=== PATIENT | male | born 1970 | race Caucasian/White ===

== ENCOUNTER 2021-09-01 10:47 | Emergency (ER) | payer OTHER, SELFPAY ==
[2021-09-01 11:04] VITALS: BP 94/58; PULSE 64; RESP 18; TEMP 36.9; O2SAT 99; BMI 22.5
[2021-09-01 11:23] VITALS: BP 97/63; RESP 20; O2SAT 99
--- NOTE | 2021-09-01 12:07 | ED_ITS ---
HPI - Nausea/Vomiting/Diarrhea General: Chief complaint: Nausea/Vomiting/Diarrhea Stated complaint: Fever, Claminess, Dehydration Time Seen by Provider: 09/01/21 11:31 Source: patient Mode of arrival: ambulatory Limitations: no limitations History of Present Illness: Patient is a 51-year-old female who presents to ED today with a complaint of nausea, vomiting, diarrhea, fevers, and body aches over the past 48 hours. Patient was seen in the [facility] clinic yesterday and told he had a stomach bug . Patient reports he has had approximately 10 episodes of watery diarrhea over the past 48 hours. He states he will vomit with any attempts of eating. He has not noticed any melanotic stools or hematochezia. No hematemesis. Patient states fevers have been as high as 102 and accompanied with diffuse body aches. He does not complain of abdominal pain. Denies urinary symptoms. He does not complain of a headache, neck pain, back pain. No rash. MD elicited complaint: nausea, vomiting, diarrhea and other (fevers, body aches) Onset (ago): day(s) Description of diarrhea: watery Associated nausea: Yes Associated abdominal pain: No Location of pain: Other (reports diffuse body aches) Exacerbating factors: eating Relieving factors: none Associated symtoms: Reports nausea; Denies change in vision, chest pain, dizziness, dysuria, fatigue, headache(s), malaise, palpitations or syncope Review of Systems Const: Reports: fever(s) and body aches; Denies: chills, change in weight, fatigue or malaise Eyes: Denies: change in vision or blurry vision ENMT: Denies: throat pain, odynophagia, nasal discharge or nasal congestion Card: Denies: chest pain, palpitations, irregular heart rhythm, lightheadedness, syncope or dyspnea on exertion Resp: Denies: dyspnea, productive cough, wheezing, pain on inspiration, hemoptysis or chest congestion GI: Reports: nausea, vomiting and diarrhea; Denies: abdominal pain, hematemesis, hematochezia or melena : Denies: flank pain, difficulty urinating, dysuria or hematuria Musc: Denies: neck pain, back pain, extremity pain or joint pain Skin/Breast: Denies: rash Neuro: Denies: headache(s), numbness in extremities, weakness in extremities, sensory changes, difficulty walking or dizziness Physical Exam Const: COMMON NORMALS: no acute distress, patient oriented x3, no limitations, alert and well nourished GENERAL APPEARANCE: cooperative and ill appearing ORIENTATION/CONSCIOUSNESS: Yes awake, Yes oriented to person, Yes oriented to place and Yes oriented to time HENMT: COMMON NORMALS: normocephalic and atraumatic HEAD & SCALP: normocephalic and atraumatic Eye: SCLERA: sclerae normal Neck/C-Spine: COMMON NORMALS: full ROM, no lymphadenopathy and no meningeal signs Resp: COMMON NORMALS: normal respiratory effort and clear to auscultation bilaterally AUSCULTATION: clear to auscultation bilaterally Cardio: COMMON NORMALS: regular rate and regular rhythm RATE: regular rate RHYTHM: regular rhythm GI: COMMON NORMALS: Normal to inspection, nondistended, normoactive bowel so unds present, Soft to palpation, non-tender, No hepatosplenomegaly present and no masses PALPATION: Yes Soft to palpation and Yes No hepatosplenomegaly present : COMMON NORMALS: Yes no CVA tenderness BLADDER/KIDNEY EXAM: Yes no CVA tenderness Back/Pelvis: COMMON NORMALS: no CVA tenderness, thoracic and lumbar spine normal to inspection, no thoracic nor lumbar tenderness and thoraco-lumbar ROM normal Extremity: COMMON NORMALS: normal to inspection GENERAL: Yes normal exam except as noted Neuro: JOHN COMA SCALE: document GCS findings John coma scale eye opening: Spontaneous [place] coma scale verbal response: Orientated John coma scale motor response: Obey commands John coma scale total score: 15 COMMON NORMALS: patient oriented x3, moves all extremities, no focal motor deficits and no sensory deficits noted SENSORIUM/ORIENTATION: Yes alert, Yes oriented to person, Yes oriented to place and Yes oriented to time MENINGEAL SIGNS: Yes no meningeal signs Skin: COMMON NORMALS: no rashes or lesions noted GENERAL SKIN EXAM: no rashes or lesions noted Course Vital Signs: Vital signs: Vital Signs Temperature 98.4 F 09/01/21 11:04 Pulse Rate 86 09/01/21 16:49 Respiratory Rate 16 09/01/21 16:49 Blood Pressure 104/66 09/01/21 16:49 Pulse Oximetry 97 09/01/21 16:49 MDM - Nausea/Vomiting/Diarrhea Medical Decision Making Patient was an extremely hard stick and 8 separate nurses as well as phlebotomy tried to stick patient. Nurses also attempted with ultrasound guidance without success. We were able to get basic labs but we cannot get an IV established for fluids. We also cannot get the tick panel and hepatitis panel that was ordered. Patient does have mild elevations to his LFTs-unknown the chronicity of these. Normal bilirubin. Normal lipase. Patient states he does believe he had a history of hepatitis C that was treated 5 years ago. Patient is leukopenic with a white count of 1.7. He has a low sodium at 127. Due to these findings I was suspicious for tick illness and I did ask patient who told me he had a tick bite but it was 48 hours ago and he already had symptoms at that time so that would make this less likely. Patient is a diabetic. Blood sugars today 214. He has a normal bicarb and normal gap. I do not have concerns that symptoms are secondary to DKA. His US gallbladder is normal. He has no abdominal tenderness therefore CT imaging was not obtained. Patient states he is tired of being stuck and would like to go home at this time. Will write him a prescription of Zofran and recommend extremely close follow-[facility] for [facility]uation and lab recheck. Patient agrees to this plan. Lab Data : 09/01/21 14:00 09/01/21 14:00 Radiology Impressions Gallbladder Ultrasound 09/01/21 14:38 IMPRESSION: No acute findings. Laboratory Results WBC 1.7 10^3/uL (4.0-10.0) L 09/01/21 14:00 RBC 5.30 10^6/uL (4.1-5.3) 09/01/21 14:00 Hgb 15.4 g/dL (11.7-16.6) 09/01/21 14:00 Hct 47.1 % (42.0-52.0) 09/01/21 14:00 MCV 88.9 fl (80-94) 09/01/21 14:00 MCH 29.1 pg (28.0-34.0) 09/01/21 14:00 MCHC 32.7 g/dL (30.0-36.0) 09/01/21 14:00 RDW 12.5 % (12.1-15.1) 09/01/21 14:00 Plt Count 121 10^3/cmm (130-400) L 09/01/21 14:00 MPV 10.2 fL (7.4-10.4) 09/01/21 14:00 Neut % (Auto) 80.2 % 09/01/21 14:00 Lymph % (Auto) 12.2 % 09/01/21 14:00 [place] % (Auto) 5.8 % 09/01/21 14:00 Eos % (Auto) 0.0 % 09/01/21 14:00 Baso % (Auto) 1.2 % 09/01/21 14:00 Neut # (Auto) 1.38 10^3/uL (1.8-7.7) L 09/01/21 14:00 Lymph # (Auto) 0.2 10^3/uL (0.8-4.8) L 09/01/21 14:00 [place] # (Auto) 0.1 10^3/uL (0.2-0.9) L 09/01/21 14:00 Eos # (Auto) 0.0 10^3/uL (0.0-0.8) 09/01/21 14:00 Baso # (Auto) 0.0 10^3/uL (0.0-0.1) 09/01/21 14:00 Nucleated RBC % (auto) 0 % 09/01/21 14:00 Nucleated RBCs # 0.0 /100WBC 09/01/21 14:00 Sodium 127 mmol/L (136-145) L 09/01/21 14:00 Potassium 4.0 mmol/L (3.5-5.1) 09/01/21 14:00 Chloride 91 mmol/L (98-107) L 09/01/21 14:00 Carbon Dioxide 22 mmol/L (22-29) 09/01/21 14:00 Anion Gap 18.0 (5-19) 09/01/21 14:00 BUN 17 mg/dL (6-20) 09/01/21 14:00 Creatinine 1.1 mg/dL (0.7-1.2) 09/01/21 14:00 GFR Calculation 71.1 mL/min (90-130) L 09/01/21 14:00 Glucose 214 mg/dL (65-115) H 09/01/21 14:00 Calculated Osmolality 272 mOsm/kg (285-295) L 09/01/21 14:00 Calcium 8.0 mg/dL (8.5-10.5) L 09/01/21 14:00 Total Bilirubin 0.4 mg/dL (0.15-1.2) 09/01/21 14:00 AST 83 U/L (0-40) H 09/01/21 14:00 ALT 72 U/L (0-41) H 09/01/21 14:00 Alkaline Phosphatase 189 IU/L (40-130) H 09/01/21 14:00 Total Protein 6.6 g/dL (6.6-8.7) 09/01/21 14:00 Albumin 3.6 g/dL (3.5-5.2) 09/01/21 14:00 Globulin 3.0 g/dL (1.3-4.6) 09/01/21 14:00 Lipase 5 U/L (13-60) L 09/01/21 14:00 Urine Color Yellow (Yellow) 09/01/21 14:30 Urine Appearance Clear (CLEAR) 09/01/21 14:30 Urine pH 5 (5-7) 09/01/21 14:30 Ur Specific [place] 1.025 (1.005-1.030) 09/01/21 14:30 Urine Protein 1+ (Negative) H 09/01/21 14:30 Urine Glucose (UA) 1+ (Normal) H 09/01/21 14:30 Urine Ketones Negative (Negative) 09/01/21 14:30 Urine Blood Neg (Negative) 09/01/21 14:30 Urine Nitrate Negative (Negative) 09/01/21 14:30 Urine Bilirubin Neg (Negative) 09/01/21 14:30 Urine Urobilinogen Norm mg/dL (Negative) 09/01/21 14:30 Ur Leukocyte Esterase Negative (Negative) 09/01/21 14:30 Urine RBC None /hpf (0-2) 09/01/21 14:30 Urine WBC 0-4 /hpf (0-5) H 09/01/21 14:30 Ur Squamous Epith Cells 0-4 /hpf (0-5) H 09/01/21 14:30 Amorphous Sediment 1+ /hpf 09/01/21 14:30 Urine Bacteria 1+ /hpf (NONE) H 09/01/21 14:30 Coarse Granular Casts 10-15 /lpf H 09/01/21 14:30 Urine Mucus 1+ /hpf 09/01/21 14:30 Influenza Type A Ag Negative (Negative) 09/01/21 13:50 Influenza Type B Ag Negative (Negative) 09/01/21 13:50 Discharge Plan Discharge Patient Disposition: Home Clinical Impression: Elevated LFTs, Gastroenteritis, Hyponatremia Condition: Stable Prescriptions: New ondansetron 4 mg tablet,disintegrating 4 mg PO Q8H PRN (Reason: nausea and vomiting) Qty: 14 0RF No Action Lantus U-100 Insulin 100 unit/mL Solution 30 unit SUBCUT BEDTIME 0RF Novolog Flexpen U-100 Insulin 100 unit/mL (3 mL) Insulin Pen See Rx Instructions .ROUTE .COMPLEX 0RF Rx Instructions: PER SLIDING SCALE Discharge Orders: Discharge ED (Routine); Ordered 09/01/21 Ordered By: Dolores Albrecht Referrals: Laurie Frazier, GUIDE [Primary Care Provider] - Activity Restrictions/Additional Instructions: As we discussed please push fluids as much as possible at home. You may start a bland liquid diet and slowly advance as tolerated. You need to have a re- evaluation and [facility] You need to return to the emergency department immediately for worsening vomiting, diarrhea, abdominal pain, worsening or uncontrollable fevers, yellowing of your skin or eyes, or any other concerns you may have. Hope you begin to feel better soon. Coding Level of Care Code ED Financial Management Analyst for [place] Fwasha Exam Comprehensive
[2021-09-01] MEDS: sodium chloride 0.9% 1,000 ML 999 ML IV (13:11)
[2021-09-01 14:14] LABS: Basophils % 1.2 %; Hematocrit 47.1 % (42.0-52.0); Hemoglobin 15.4 g/dL (11.7-16.6); Lymphocytes # 0.2 10^3/uL (0.8-4.8); Lymphocytes % 12.2 %; Mean Corpuscular HGB Conc 32.7 g/dL (30.0-36.0); Mean Corpuscular Hemoglobin 29.1 pg (28.0-34.0); Mean Corpuscular Volume 88.9 fl (80-94); Mean Platelet Volume 10.2 fL (7.4-10.4); Monocytes # 0.1 10^3/uL (0.2-0.9); Monocytes % 5.8 %; Neutrophils # 1.38 10^3/uL (1.8-7.7); Neutrophils % 80.2 %; Nucleated Red Blood Cells % 0 %; Platelet Count 121 10^3/cmm (130-400); Red Cell Distribution Width 12.5 % (12.1-15.1); White Blood Count 1.7 10^3/uL (4.0-10.0)
[2021-09-01 14:16] LABS: Influenza A by IFA Negative (Negative); Influenza B by IFA Negative (Negative)
[2021-09-01 14:32] LABS: Alanine Aminotransferase 72 U/L (0-41); Albumin Level 3.6 g/dL (3.5-5.2); Alkaline Phosphatase 189 IU/L (40-130); Aspartate Amino Transferase 83 U/L (0-40); Blood Urea Nitrogen 17 mg/dL (6-20); Carbon Dioxide 22 mmol/L (22-29); Chloride 91 mmol/L (98-107); Glomerular Filtration Rate 71.1 mL/min (90-130); Glucose 214 mg/dL (65-115); Lipase 5 U/L (13-60); Osmolality Calculated 272 mOsm/kg (285-295); Slide Review Slide Review Perform; Sodium 127 mmol/L (136-145); Total Bilirubin 0.4 mg/dL (0.15-1.2); Total Protein 6.6 g/dL (6.6-8.7)
--- NOTE | 2021-09-01 14:38 | USR_ITS ---
PROCEDURE INFORMATION: Exam: US Abdomen, Limited; Right Upper Quadrant Exam date and time: 09/01/2021 2:46 PM Age: 51 years old Clinical indication: Abdominal pain; Additional info: Elevated lfts, n/v/d TECHNIQUE: Imaging protocol: US abdomen. Real time ultrasound with image documentation. Limited exam focused on the right upper quadrant. COMPARISON: CT Abdomen/Pelvis Renal [id number] 01/11/2015 2:59 AM FINDINGS: Liver: Normal. No masses. Gallbladder: Normal. No gallstones. There is no gallbladder wall thickening. Negative sonographic Billy sign. Common bile duct: The common bile duct measures 3 mm within normal limits. Pancreas: Poorly visualized due to overlying bowel gas. Right kidney: The right kidney measures 10.9 cm in length. No mass. No hydronephrosis. US/US gall bladder [id number] IMPRESSION: No acute findings.
[2021-09-01 15:09] LABS: Add Urine Microscopic? YES; Bilirubin Urine Neg (Negative); Blood Urine Neg (Negative); Glucose Urine UA 1+ (Normal); Ketones Urine Negative (Negative); Leukocyte Esterase Urine Negative (Negative); Nitrate Urine Negative (Negative); Protein Urine 1+ (Negative); Specific Gravity, Urine 1.025 (1.005-1.030); Urine Appearance Clear (CLEAR); Urine Color Yellow (Yellow); Urobilinogen Urine Norm (Negative); pH Urine 5 (5-7)
[2021-09-01 15:10] LABS: Add Urine Culture? No; Amorphous Sediment Urine 1+ /hpf; Bacteria Urine 1+ /hpf; Mucus Urine 1+ /hpf; Squamous Epithelial Cell Urine 0-4 /hpf (0-5); WBC Urine 0-4 /hpf (0-5)
[2021-09-01 16:49] VITALS: BP 104/66; PULSE 86; RESP 16; O2SAT 97
== END 2021-09-01 16:50 | disposition home or self-care (01) ==
PROVIDERS: Emergency Provider Physician Assistant; PCP Nurse Practitioner
DX: K52.9 Noninfective gastroenteritis and colitis, unspecified (principal); E87.1 Hypo-osmolality and hyponatremia; R79.89 Other specified abnormal findings of blood chemistry; E11.9 Type 2 diabetes mellitus without complications; D72.819 Decreased white blood cell count, unspecified
CPT/HCPCS: 76705; 80053; 81001; 83690; 85025; 87804; 96360; 99284; J7030

== ENCOUNTER 2021-11-30 01:14 | Observation (INO) | payer OTHER, MEDICAID, SELFPAY ==
[2021-11-30] VITALS (31 sets, daily range): BP systolic 102–137; BP diastolic 64–97; PULSE 0–114; RESP 1–22; TEMP 34.4–36.7; O2SAT 98–100; BMI 22.1
--- NOTE | 2021-11-30 01:19 | ED_ITS ---
HPI - Altered Mental Status General: Chief Complaint: Altered Mental Status Stated Complaint: LOW BLOOD SUGAR Time Seen by Provider: 11/30/21 01:18 Limitations: altered mental status History of Present Illness: Mr. Manuel is a 51-year-old gentleman with hi story of insulin-dependent diabetes who presents to the emergency department due to altered mental status and low blood sugar. He does not provide meaningful clinical history. Per EMS he was placed in a bathtub due to concern over heat exposure the patient was altered with a blood glucose of 21 on scene. Mental status did not significantly improve with glucose administration the blood sugar did. Patient appeared to be hypothermic. No other meaningful history provided. Upon arrival of patient's patient has been at his baseline health, no fevers or other complaints. He was found down on the floor and seemed to be sweating at which point they placed him in tub. He has never had anything like this. 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 Physical Exam Const: COMMON NORMALS: alert GENERAL APPEARANCE: cooperative, well developed and ill appearing HENMT: COMMON NORMALS: normocephalic and atraumatic HEAD & SCALP: normocephalic and atraumatic THROAT: posterior oropharynx normal Eye: COMMON NORMALS: conjunctivae normal CONJUNCTIVA: Yes conjunctivae normal SCLERA: sclerae normal Neck/C-Spine: COMMON NORMALS: supple GENERAL: Yes trachea midline Resp: COMMON NORMALS: normal respiratory effort and clear to auscultation bilaterally EFFORT & INSPECTION: Yes able to speak in complete sentences AUSCULTATION: clear to auscultation bilaterally Cardio: COMMON NORMALS: regular rate and regular rhythm RATE: regular rate RHYTHM: regular rhythm GI: COMMON NORMALS: Soft to palpation PALPATION: Yes Soft to palpation and No Tenderness to palpation present (GI) PERCUSSION: normal to percussion Extremity: GENERAL: Yes normal exam except as noted and No edema Neuro: COMMON NORMALS: CN's II-XII intact bilaterally, moves all extremities, no focal motor deficits and no sensory deficits noted SENSORIUM/ORIENTATION: Yes alert and No Orientation impaired Psych: MEMORY/COGNITION: Yes memory grossly impaired Course ED course: - Patient was seen and evaluated by me at bedside - Patient placed on cardiac monitors, IV access obtained - Initial evaluation notable for exam as above, no focal neurodeficits - Labs and xrays personally interpreted by me. EKG shows sinus rhythm, no STEMI. - Bear hugger placed - Labs notable for leukocytosis, normal hemoglobin. Metabolic panel without acute electrolyte derangement. No clear explanation for patient's symptoms. - Imaging notable for no lobar consolidation or pneumothorax. Head CT negative. - Upon serial reexamination after treatment the patient was similar though he has required additional doses/doses of 25 g 50% dextrose as well as continued up titration of D5 NS and addition of the D5W. - Based on patient history, evaluation, and testing as interpreted the most likely cause of the patient's condition is refractory hypoglycemia of uncertain etiology. - The results of ED evaluation were discussed with the patient including plan for admission due to requirement for level of care not available if discharged to prevent significant worsening/deterioration. - Admitting service was contacted and Dr Foote with hospitalist service agreed to admit the patient - Patient was admitted without further deterioration or significant events. Note: Click bubbles or prepopulated [place] in note writing are used for assistance with data collection and billing and are inherently more limited than narrative and other text portions of this note. Please use narrative for additional clinic al history and defer to narrative/free test for any case of contradictory information. If information appears in only free text or click bubble it should be considered present or absent as reported. Please contact note junior copywriter for clarifications of clinical information or contradictory information. MDM is a brief summary, contradictory or erroneous seeming information should be clarified and full note should be reviewed. Vital Signs: Vital signs: Vital Signs Temperature 98.0 F 12/01/21 08:00 Pulse Rate 68 12/01/21 12:08 Respiratory Rate 17 12/01/21 12:08 Blood Pressure 107/77 12/01/21 12:08 Pulse Oximetry 99 12/01/21 12:08 Oxygen Delivery Me thod 12/01/21 12:00 Oxygen Flow Rate 99 12/01/21 00:00 MDM - Altered Mental Status Medical Decision Making 51-year-old gentleman presenting with altered mental status related to low blood sugar and hypothermia. No focal neurodeficits on exam. Despite treatment gl ucose refractory low and required repeat doses and initiation of dextrose drip. Admitted for further management. Medical Records I reviewed the patient's medical records. Lab Data I reviewed the patient's lab results. : 12/01/21 05:40 12/01/21 05:40 Radiology Impressions Chest X-Ray 11/30/21 01:20 IMPRESSION: Strandy and hazy opacities in the left hemithorax may represent atelectasis although left sided pneumonitis cannot be excluded. Head CT 11/30/21 01:20 IMPRESSION: No acute intracranial abnormality. Laboratory Results WBC 6.6 10^3/uL (4.0-10.0) 11/30/21 01:37 RBC 4.50 10^6/uL (4.1-5.3) 11/30/21 01:37 Hgb 12.9 g/dL (11.7-16.6) 11/30/21 01:37 Hct 38.8 % (42.0-52.0) L 11/30/21 01:37 MCV 86.2 fl (80-94) 11/30/21 01:37 MCH 28.7 pg (28.0-34.0) 11/30/21 01:37 MCHC 33.2 g/dL (30.0-36.0) 11/30/21 01:37 RDW 12.2 % (12.1-15.1) 11/30/21 01:37 Plt Count 311 10^3/cmm (130-400) 11/30/21 01:37 MPV 9.0 fL (7.4-10.4) 11/30/21 01:37 Neut % (Auto) 72.2 % 11/30/21 01:37 Lymph % (Auto) 16.0 % 11/30/21 01:37 [place] % (Auto) 6.8 % 11/30/21 01:37 Eos % (Auto) 2.9 % 11/30/21 01:37 Baso % (Auto) 1.5 % 11/30/21 01:37 Neut # (Auto) 4.79 10^3/uL (1.8-7.7) 11/30/21 01:37 Lymph # (Auto) 1.1 10^3/uL (0.8-4.8) 11/30/21 01:37 [place] # (Auto) 0.5 10^3/uL (0.2-0.9) 11/30/21 01:37 Eos # (Auto) 0.2 10^3/uL (0.0-0.8) 11/30/21 01:37 Baso # (Auto) 0.1 10^3/uL (0.0-0.1) 11/30/21 01:37 Nucleated RBC % (auto) 0 % 11/30/21 01:37 Nucleated RBCs # 0.0 /100WBC 11/30/21 01:37 Specimen Type Arterial 11/30/21 04:09 Sample Site Radial, right 11/30/21 04:09 ABG pH 7.34 (7.35-7.45) L 11/30/21 04:09 ABG pCO2 42.2 mmHg (35-45) 11/30/21 04:09 ABG pO2 105.0 mmHg (80.0-100.0) H 11/30/21 04:09 ABG HCO3 23.0 mmol/L (22-26) 11/30/21 04:09 ABG Base Excess -2.7 mmol/L (-2.0-2.0) L 11/30/21 04:09 [place] Test Pos 11/30/21 04:09 Hematocrit 37.6 % (42-52) L 11/30/21 04:09 O2 Delivery Device None 11/30/21 04:09 Ep Technologist ID Hensa 11/30/21 04:09 Sodium 141 mmol/L (136-145) 11/30/21 01:37 Potassium 3.3 mmol/L (3.5-5.1) L 11/30/21 01:37 Chloride 106 mmol/L (98-107) 11/30/21 01:37 Carbon Dioxide 25 mmol/L (22-29) 11/30/21 01:37 Anion Gap 13.3 (5-19) 11/30/21 01:37 BUN 14 mg/dL (6-20) 11/30/21 01:37 Creatinine 1.2 mg/dL (0.7-1.2) 11/30/21 01:37 GFR Calculation 64.4 mL/min (90-130) L 11/30/21 01:37 Glucose 16 mg/dL (65-115) L* 11/30/21 01:37 POC Glucose 56 mg/dL (70-110) L 11/30/21 04:32 Estimat Average Glucose 255 11/30/21 01:37 Hemoglobin A1c 10.5 % (4.0-6.0) H 11/30/21 01:37 Calculated Osmolality 288 mOsm/kg (285-295) 11/30/21 01:37 Calcium 9.2 mg/dL (8.5-10.5) 11/30/21 01:37 Total Bilirubin 0.2 mg/dL (0.15-1.2) 11/30/21 01:37 AST 30 U/L (0-40) 11/30/21 01:37 ALT 40 U/L (0-41) 11/30/21 01:37 Alkaline Phosphatase 145 IU/L (40-130) H 11/30/21 01:37 Troponin T Baseline 17 ng/L (0-15) H 11/30/21 01:37 Total Protein 7.0 g/dL (6.6-8.7) 11/30/21 01:37 Albumin 4.5 g/dL (3.5-5.2) 11/30/21 01:37 Globulin 2.5 g/dL (1.3-4.6) 11/30/21 01:37 TSH 2.63 uIU/mL (0.27-4.20) 11/30/21 01:37 Salicylates 2.5 mg/dL (3-10) L 11/30/21 01:37 Acetaminophen < 5.0 ug/mL (10-30) L 11/30/21 01:37 Ethyl Alcohol < 10 mg/dL (0-10) 11/30/21 01:37 Serum Ketones Negative (Negative) 11/30/21 01:37 Critical Care Time Critical Care Time: Critical Care Time: Yes Total Critical Care Time: 50 Attestation: The high probability of a clinically significant, sudden or life threatening deterioration of the patient's endocrine and neuro system(s) required my full and direct attention, intervention and personal management. The critical care time is as shown. This time is in addition to time spent performing any reported procedures but includes the following: [x] Data and vital sign review and interpretation [x] Patient assessment, examination and intervention [x] Documentation [x] Medication orders and management Discharge Plan Discharge Patient Disposition: Placed in Observation Admit Provider: Juan Foote Clinical Impression: Altered mental status, Hypoglycemia, Hypothermia Discharge Diet: Diabetic Discharge Activity: Resume usual activity Coding Level of Care Code ED Business Process Associate for [place] Parra
--- NOTE | 2021-11-30 01:20 | ECG_ITS ---
[facility] Test Date: 2021-11-30 Pat Name: Suhas Manuel Department: Room: [facility] Gender: Male Hand Screen Printer: : 1970 Requested By: Alexander Stevens Order Number: [id number] Kyle MD: Ezio Yepez M.D. Measurements Intervals [place] Rate: 60 P: 61 AL: 171 QRS: 27 QRSD: 110 T: 40 QT: 461 QTc: 462 Interpretive Statements SINUS RHYTHM PROLONGED QT INTERVAL Compared to ECG 11/30/2021 01:21:43 Prolonged QT interval now present Electronically Signed On 11-30-2021 20:30:27 CDT by Ezio Yepez M.D. [id number]
--- NOTE | 2021-11-30 01:20 | CTR_ITS ---
PROCEDURE INFORMATION: Exam: CT Head Without Contrast Exam date and time: 11/30/2021 1:53 AM Age: 51 years old Clinical indication: Altered mental status/memory loss; Patient HX: Found by EMS in bathtub unresponsive. Blood sugar of 21. Known diabetic. ; Additional info: AMS TECHNIQUE: Imaging protocol: Computed tomography of the head without contrast. Radiation optimization: All CT scans at this facility use at least one of these dose optimization techniques: automated exposure control; mA and/or kV adjustment per patient size (includes targeted exams where dose is matched to clinical indication); or iterative reconstruction. COMPARISON: No relevant prior studies available. RADIATION DOSE METRICS: Total DLP (mGy-cm): 1072.68 FINDINGS: Brain: Normal. No hemorrhage. Unremarkable white matter. No mass effect. Cerebral ventricles: No ventriculomegaly. Paranasal sinuses: Visualized sinuses are unremarkable. No fluid levels. Mastoid air cells: Visualized mastoid air cells are well aerated. Bones/joints: Unremarkable. No acute fracture. Soft tissues: Unremarkable. CT/CT head wo con* [id number] IMPRESSION: No acute intracranial abnormality.
--- NOTE | 2021-11-30 01:20 | XRR_ITS ---
PROCEDURE INFORMATION: Exam: XR Chest Exam date and time: 11/30/2021 1:58 AM Age: 51 years old Clinical indication: Other: AMS; Patient HX: Found by EMS in bathtub unresponsive. Blood sugar of 21. Known diabetic. TECHNIQUE: Imaging protocol: Radiologic exam of the chest. Views: 1 view. COMPARISON: CR Chest 2 views* [id number] 01/21/2019 9:06 AM FINDINGS: Lungs: Status post right upper lobectomy. There are some strandy and hazy opacities present in the left hemithorax possibly representing atelectasis although left sided pneumonitis cannot be excluded. Pleural spaces: Unremarkable. No pleural effusion. No pneumothorax. Heart/Mediastinum: Unremarkable. No cardiomegaly. Bones/joints: Unremarkable. XR/XR chest 1V portable [id number] IMPRESSION: Strandy and hazy opacities in the left hemithorax may represent atelectasis although left sided pneumonitis cannot be excluded.
[2021-11-30 01:41] LABS: Basophils # 0.1 10^3/uL (0.0-0.1); Basophils % 1.5 %; Eosinophils # 0.2 10^3/uL (0.0-0.8); Eosinophils % 2.9 %; Hematocrit 38.8 % (42.0-52.0); Hemoglobin 12.9 g/dL (11.7-16.6); Lymphocytes # 1.1 10^3/uL (0.8-4.8); Mean Corpuscular HGB Conc 33.2 g/dL (30.0-36.0); Mean Corpuscular Hemoglobin 28.7 pg (28.0-34.0); Mean Corpuscular Volume 86.2 fl (80-94); Monocytes # 0.5 10^3/uL (0.2-0.9); Monocytes % 6.8 %; Neutrophils # 4.79 10^3/uL (1.8-7.7); Neutrophils % 72.2 %; Nucleated Red Blood Cells % 0 %; Platelet Count 311 10^3/cmm (130-400); Red Cell Distribution Width 12.2 % (12.1-15.1); White Blood Count 6.6 10^3/uL (4.0-10.0)
[2021-11-30 02:00] LABS: Ketone (Acetest) Serum Negative (Negative); Troponin(5th) Baseline 17 ng/L (0-15)
[2021-11-30 02:08] LABS: Acetaminophen < 5.0 ug/mL (10-30); Alanine Aminotransferase 40 U/L (0-41); Albumin Level 4.5 g/dL (3.5-5.2); Alcohol Level < 10 mg/dL (0-10); Alkaline Phosphatase 145 IU/L (40-130); Anion Gap 13.3 (5-19); Aspartate Amino Transferase 30 U/L (0-40); Blood Urea Nitrogen 14 mg/dL (6-20); Calcium 9.2 mg/dL (8.5-10.5); Carbon Dioxide 25 mmol/L (22-29); Chloride 106 mmol/L (98-107); Globulin 2.5 g/dL (1.3-4.6); Glomerular Filtration Rate 64.4 mL/min (90-130); Osmolality Calculated 288 mOsm/kg (285-295); Potassium 3.3 mmol/L (3.5-5.1); Salicylate 2.5 mg/dL (3-10); Sodium 141 mmol/L (136-145); Thyroid Stimulating Hormone 2.63 uIU/mL (0.27-4.20); Total Bilirubin 0.2 mg/dL (0.15-1.2)
[2021-11-30 02:10] LABS: Glucose 16 mg/dL (65-115)
[2021-11-30] MEDS: dextrose 50% syringe 50 mL (02:20)
[2021-11-30 02:24] LABS: ABG PCO2 48.8 mmHg (35-45); ABG PH Result 7.29 (7.35-7.45); Arterial Blood Gas Hematocrit 38.3 % (42-52); Base Excess ABG -3.8 mmol/L (-2.0-2.0); Blood Gas Allen Test Pos; Blood Gas Sample Site Radial, left; Blood Gas Sample Type Arterial; HCO3 ABG 23.2 mmol/L (22-26); PO2 ABG 88.8 mmHg (80.0-100.0)
[2021-11-30] MEDS: dextrose 50% syringe 50 mL 25 ML IVP (02:25)
[2021-11-30] MEDS: dextrose 5%-sod chloride 0.9% 1,000 ML 125 ML IV ×2 (02:36→09:46)
[2021-11-30 02:38] LABS: Glucose Point of Care 21 mg/dL (70-110)
[2021-11-30 02:38] LABS: Glucose Point of Care 114 mg/dL (70-110)
[2021-11-30] MEDS: dextrose 50% syringe 50 mL IVP (03:10)
[2021-11-30 03:18] LABS: Glucose Point of Care 48 mg/dL (70-110)
--- NOTE | 2021-11-30 03:20 | ECG_ITS ---
[facility] Test Date: 2021-11-30 Pat Name: Suhas Manuel Department: Room: Gender: Male Sap Pp Consultant: : 1970 Requested By: Alexander Stevens Order Number: [id number] Wright MD: Ezio Yepez M.D. Measurements Intervals [place] Rate: 78 P: 29 ID: [id number] QRS: 11 QRSD: 108 T: 32 QT: 419 QTc: 479 Interpretive Statements SINUS RHYTHM No previous ECG available for comparison Electronically Signed On 11-30-2021 20:47:08 CDT by Ezio Yepez M.D. [id number]
[2021-11-30 03:50] LABS: Glucose Point of Care 85 mg/dL (70-110)
[2021-11-30 04:17] LABS: ABG PCO2 42.2 mmHg (35-45); ABG PH Result 7.34 (7.35-7.45); Arterial Blood Gas Hematocrit 37.6 % (42-52); Base Excess ABG -2.7 mmol/L (-2.0-2.0); Blood Gas Allen Test Pos; Blood Gas Sample Site Radial, right; Blood Gas Sample Type Arterial
[2021-11-30] MEDS: dextrose 10% 1,000 ML 75 ML IV (04:25)
[2021-11-30 04:37] LABS: Glucose Point of Care 56 mg/dL (70-110)
--- NOTE | 2021-11-30 05:38 | PM.HP ---
Providers/Chief Complaint Admitting Physician: Juan Foote Primary Care Provider: JOSE GUADALUPE Murry Chief Complaint: LOW BLOOD SUGAR History of Present Illness 51-year-old gentleman with history of insulin-dependent diabetes, was brought in for evaluation due to decreased responsiveness when found by his . She states that she had seen him just about 5 minutes earlier and he was fidgeting with something, trying to fix flashlight for her. She states that she stepped outside, returned and he was slumped over on the floor, holding flashlight in 1 hand, the other arm limp on the ground. She thought he felt warm to the touch, and was clammy, so she had placed him in a bathtub as they do not have air conditioning in the room where he was. She reports she measured glucose which was 29 which she reported to EMS. He has so far received D50, started on infusion of D5-NS, subsequently also with additional D10. His denies any unusual behavior from him. She believes he did take his insulin shots last evening. She feels that he did eat during the day. Apart from occasional leg cramps which have been recurrent for him for which he sometimes takes some potassium, she states he otherwise has not had any complaints recently. Has not complained of any headache, has had no fever, chills, nausea or vomiting, rashes, or any other new symptoms. On arrival he was noted to be hypothermic, temperature 94 F with associated bradycardia in the 50s. This is gradually improving with bear wisamer, currently 96.3. He himself wakes up some issues in the hospital, does not answer any other questions or provide any history. Review of Systems General: Reports: ROS unobtainable due to mental status Medications/Allergies Home Medications Medication Instructions Recorded Confirmed Last Taken Type insulin aspart U-100 100 unit/mL See Rx Instructions .ROUTE .COMPLEX 09/01/21 09/01/21 Unknown History (3 mL) subcutaneous pen (Novolog Flexpen U-100 Insulin aspart) insulin glargine 100 unit/mL 30 unit SUBCUT BEDTIME 09/01/21 09/01/21 08/31/21 History subcutaneous solution (Lantus U-100 Insulin) ondansetron 4 mg disintegrating 4 mg PO Q8H PRN #14 tab 09/01/21 Unknown Rx tablet Allergies Allergy/AdvReac Type Severity Reaction Status Date / Time No Known Allergies Allergy Verified 09/01/21 11:11 PFSH Acute PFSH: Medical History Insulin dependent diabetes mellitus Lung cancer Surgical History History of pneumonectomy Family History Other Diabetes Social History Smoking and tobacco status: never smoked Alcohol intake: never Substance/Drug Use: never Lives independently: Yes Household members: spouse Marital status: 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 Vitals/I&O/Wt Last Vital Signs Temp 96.2 F L 11/30/21 04:25 Pulse 59 L 11/30/21 05:31 Resp 15 11/30/21 05:31 BP 104/76 11/30/21 05:31 Pulse Ox 99 11/30/21 05:31 Weight last 48 hrs Weight 68.039 kg Physical Exam Const: ORIENTATION/CONSCIOUSNESS: Yes oriented to place and Yes lethargic HENMT: COMMON NORMALS: normocephalic, EAC's normal, Normal external nose present and moist oral mucous membranes HEAD & SCALP: normocephalic NOSE: Normal external nose present EXTERNAL AUDITORY CANAL: EAC's normal Neck/C-Spine: COMMON NORMALS: no meningeal signs Chest: CHEST: Yes Symmetrical chest wall rise Resp: COMMON NORMALS: clear to auscultation bilaterally AUSCULTATION: clear to auscultation bilaterally Cardio: COMMON NORMALS: regular rate, regular rhythm and No murmurs present (Cardio) RATE: regular rate and bradycardic RHYTHM: regular rhythm GI: COMMON NORMALS: Normal to inspection, nondistended, normoactive bowel sounds present, Soft to palpation and non-tender PALPATION: Yes Soft to palpation Extremity: COMMON NORMALS: no pedal edema Neuro: COMMON NORMALS: moves all extremities SENSORIUM/ORIENTATION: Yes alert MENINGEAL SIGNS: Yes no meningeal signs OTHER: No rigidity. No myoclonus. Psych: COMMON NORMALS: negative for mental status grossly normal Skin: COMMON NORMALS: no wounds RASHES: no rashes OTHER: Few scattered shallow ulcerations/excoriations. No obvious rashes. Data : 11/30/21 01:37 11/30/21 01:37 A&P Assessment and plan (1) Acute encephalopathy: Found on the floor by his , last known normal about 5 minutes earlier, she stated he had felt warm, so she had placed him in a bathtub as there is no air conditioning in the room he was in. She measured his blood glucose which was 29. She thinks that he did take his nightly long-acting insulin. He has not had issues with hypoglycemia before, although reviewing his glucometer blood glucose has been variable, and was in 500s earlier in the afternoon. He was also noted to be hypothermic on arrival, temperature 94 Fahrenheit. Blood glucose has been improving. Continue D10 infusion. IV hydration. Monitor glucose. Monitor on telemetry. Continue rewarming, temperature has been gradually improving. Suspect acute metabolic encephalopathy secondary to hypoglycemia and hypothermia. Obtain toxicology panel. NPO. PPI. Head CT, TSH unremarkable. Apart from insulin, daily other medications he takes for his 's prophylactic aspirin and multivitamins. Status: Acute (2) Hypoglycemia: Hold insulin. Continue D10 infusion. IVF support. Monitor glucose. No reports of any thoughts of self-harm, has been in baseline state of health recently. Unclear if could have been accidental insulin overdose. Status: Acute (3) Hypothermia: Continue rewarming. PPI. Status: Acute (4) Insulin dependent diabetes mellitus: Hold insulin. May need education once it is more clear as to what had happened. Status: Acute (5) Alkaline phosphatase elevation: Appears to have chronic alkaline phosphatase elevation. Follow-up liver parameters. Should follow-up with primary provider. Status: Acute Plan Remote history of lung cancer in remission, status post lung resection. Attestations Medical Necessity Statement*: Place in observation for additional assessment management of acute encephalopathy, hypoglycemia and hypothermia. 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
[2021-11-30 05:54] LABS: Troponin 5 2HR 14.48 ng/L (0-15)
[2021-11-30 05:56] LABS: Troponin 5 2HR Delta -2.52 ABS# (0-10)
[2021-11-30 06:10] LABS: Glucose Point of Care 88 mg/dL (70-110)
[2021-11-30 06:11] LABS: Glucose Point of Care 115 mg/dL (70-110)
[2021-11-30 06:39] LABS: Glucose Point of Care 110 mg/dL (70-110)
[2021-11-30 06:39] LABS: Glucose Point of Care 122 mg/dL (70-110)
[2021-11-30] MEDS: heparin 5,000 unit/mL INJ 1 mL 5000 UNIT SUBCUT ×2 (06:42→18:07)
[2021-11-30] MEDS: pantoprazole 40 mg SDV IVP (06:42)
--- NOTE | 2021-11-30 07:02 | PC.NURSE ---
Introduced myself to patient's at shift change with Yun the off going RN, patient is sleeping in bed, resting quietly at this time.
--- NOTE | 2021-11-30 07:20 | ECG_ITS ---
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 Measurements Intervals [place] Rate: P: GA: QRS: QRSD: T: QT: QTc: Interpretive Statements SINUS RHYTHM Compared to ECG 11/30/2021 06:33:46 Sinus rhythm no longer present Prolonged QT interval no longer present Electronically Signed On 11-30-2021 20:42:10 CDT by Ezio Yepez M.D. [email or web address] hospitalCalico Energy Servicesclevel[facility].[employer]/store/OM/[id number]
[2021-11-30 07:42] LABS: Glucose Point of Care 130 mg/dL (70-110)
--- NOTE | 2021-11-30 07:42 | PC.NURSE ---
Checked patients blood glucose it was 130.
[2021-11-30 08:32] LABS: Glucose Point of Care 168 mg/dL (70-110)
[2021-11-30 09:23] LABS: Glucose Point of Care 185 mg/dL (70-110)
[2021-11-30 09:43] LABS: Add Urine Microscopic? NO; Bilirubin Urine Neg (Negative); Blood Urine Neg (Negative); Glucose Urine UA 2+ (Normal); Ketones Urine Negative (Negative); Leukocyte Esterase Urine Negative (Negative); Nitrate Urine Negative (Negative); Protein Urine Neg (Negative); Specific Gravity, Urine 1.025 (1.005-1.030); Urine Appearance Clear (CLEAR); Urine Color Yellow (Yellow); Urobilinogen Urine Norm (Negative); pH Urine 5 (5-7)
[2021-11-30 09:44] LABS: Charge for UA Resulting for Rev
[2021-11-30 09:52] LABS: Amphetamines Screen Urine Positive (Negative); Barbiturates Screen Urine Negative (Negative); Benzodiazepines Screen Urine Negative (Negative); Cocaine Screen Urine Negative (Negative); Opiate Screen Urine Negative (Negative); PCP Screen Urine Negative (Negative); THC Screen Urine Negative (Negative)
[2021-11-30 10:18] LABS: Glucose Point of Care 206 mg/dL (70-110)
[2021-11-30 10:49] LABS: Troponin 5 6HR 15.03 ng/L (0-15)
[2021-11-30 10:50] LABS: Troponin 5 6HR Delta -1.97 ng/L (0-12)
[2021-11-30 11:03] LABS: Alanine Aminotransferase 32 U/L (0-41); Albumin Level 3.6 g/dL (3.5-5.2); Alkaline Phosphatase 117 IU/L (40-130); Aspartate Amino Transferase 30 U/L (0-40); Blood Urea Nitrogen 13 mg/dL (6-20); Calcium 8.3 mg/dL (8.5-10.5); Carbon Dioxide 22 mmol/L (22-29); Chloride 102 mmol/L (98-107); Creatine Phosphokinase 283 U/L (39-308); Globulin 2.6 g/dL (1.3-4.6); Glomerular Filtration Rate 79.4 mL/min (90-130); Glucose 186 mg/dL (65-115); Osmolality Calculated 285 mOsm/kg (285-295); Procalcitonin 0.18 ng/mL (0-0.5); Sodium 135 mmol/L (136-145); Total Bilirubin 0.3 mg/dL (0.15-1.2); Total Protein 6.2 g/dL (6.6-8.7)
[2021-11-30 11:04] LABS: Anion Gap 14.8 (5-19); Potassium 3.8 mmol/L (3.5-5.1)
[2021-11-30 11:25] LABS: Glucose Point of Care 261 mg/dL (70-110)
[2021-11-30 11:42] LABS: Glucose Point of Care 212 mg/dL (70-110)
--- NOTE | 2021-11-30 12:35 | PM.MISC ---
Miscellaneous Note Purpose of Documentation: Mini Progress note Note: Seen this AM. No long altered. Asking for food. Urine drug screen positive for meth Continue Mgmt as per HnP document. Start diet. Continue to monitor and treat in ICu
--- NOTE | 2021-11-30 12:40 | PC.CHAP ---
Pastoral Care Encounter/Spiritual Assessment Type of Contact [] Declined video and sound recorder visit [] Patient/Family/Request visit [] Outpatient visit [] Follow-up visit [] Physician referral [] Code/Alert [x] Routine visit [] Staff referral [] Actively dying [x] Patient sleeping [x] Family support [] [] Out of room [] Palliative care [] [] Receiving care in room [] Pre-surgical visit [] Trauma [] Long length of stay [x] ICU visit [x] Other: present Relational/Emotional Strength [] Patient feels connected with others/family/visitors/staff [] Distress [] Loneliness/isolation [] Abandonment Spirituality of Patient [] Person of Preeti [] Attends Cheondoism of their Preeti [] Believes in Prayer [] Reads Bible or Scientology materials [] There are Spiritual issues to be addressed Parachute Rigger Interventions [x] Prayer [] Active listening [] Non-anxious presence [] Spiritual/emotional support [] Crisis/trauma care [] Spiritual counseling [] Bereavement support [] Provided bereavement packet [] Provided Bible/devotional materials [] Provided toy/stuffed animal, coloring book to patient or family member [] Provided Communion [] Anointing/[place] [] Salvation [x] Completed spiritual assessment [] Other: Impact on Illness or Injury [] Angry [] Fearful [] Anxious [] Often cries [] Exhaustion [] Unable to work [] Unable to attend cheondoism [] Unable to walk/stand [] Unable to read [] Unable to drive [] Unable to eat/drink [] Unable to sleep [] Unable to be with family [] Patient intubated [] Other: Summary Time spent with patient
[2021-11-30 13:23] LABS: Glucose Point of Care 332 mg/dL (70-110)
[2021-11-30 14:14] LABS: Glucose Point of Care 432 mg/dL (70-110)
--- NOTE | 2021-11-30 20:28 | PC.NURSE ---
Trell Hugger in place per pt's request for comfort.
--- NOTE | 2021-11-30 20:33 | PC.NURSE ---
Pt continues to remove blood pressure cuff.
[2021-11-30] MEDS: insulin lispro 100 unit/1 mL SUBCUT (20:43)
--- NOTE | 2021-11-30 21:20 | PC.NURSE ---
Pt only given 5 units of insulin rather than 10 per his request. Pt refused taking 10 units, stating that he would bottom out.
--- NOTE | 2021-11-30 22:01 | PC.NURSE ---
Unable to fully assess pt's urine and intake/output because it is suspected that his has urinated in the bedside commode after being asked to use the waiting room restroom.
[2021-11-30 22:03] LABS: Glucose Point of Care 361 mg/dL (70-110)
[2021-11-30 22:03] LABS: Glucose Point of Care 346 mg/dL (70-110)
[2021-11-30 22:03] LABS: Glucose Point of Care 425 mg/dL (70-110)
[2021-11-30 22:03] LABS: Glucose Point of Care 478 mg/dL (70-110)
[2021-11-30 22:03] LABS: Glucose Point of Care 370 mg/dL (70-110)
[2021-11-30 22:03] LABS: Glucose Point of Care 163 mg/dL (70-110)
--- NOTE | 2021-11-30 22:58 | PC.NURSE ---
Glucose 91. Pt given snack and juice.
[2021-12-01] VITALS (11 sets, daily range): BP systolic 97–134; BP diastolic 53–95; PULSE 49–68; RESP 14–18; TEMP 36.4–36.7; O2SAT 95–99
--- NOTE | 2021-12-01 00:55 | PC.NURSE ---
Pt sleeping. Trell davidson turned off.
--- NOTE | 2021-12-01 02:09 | PC.NURSE ---
Pt resting quietly in bed with eyes closed. His is sleeping next to him. Respirations are even and unlabored. Skin is warm, pink, and dry. Pt wakes easily, and is alert, oriented, and appropriate.
[2021-12-01 05:20] LABS: Glucose Point of Care 222 mg/dL (70-110)
[2021-12-01 05:20] LABS: Glucose Point of Care 152 mg/dL (70-110)
[2021-12-01 05:20] LABS: Glucose Point of Care 174 mg/dL (70-110)
[2021-12-01 05:20] LABS: Glucose Point of Care 180 mg/dL (70-110)
[2021-12-01 05:20] LABS: Glucose Point of Care 91 mg/dL (70-110)
[2021-12-01 05:20] LABS: Glucose Point of Care 106 mg/dL (70-110)
[2021-12-01] MEDS: heparin 5,000 unit/mL INJ 1 mL 5000 UNIT SUBCUT (06:05)
[2021-12-01] MEDS: pantoprazole 40 mg SDV IVP (06:05)
[2021-12-01 06:30] LABS: Basophils # 0.1 10^3/uL (0.0-0.1); Basophils % 2.3 %; Eosinophils # 0.3 10^3/uL (0.0-0.8); Eosinophils % 7.3 %; Hematocrit 38.6 % (42.0-52.0); Hemoglobin 12.4 g/dL (11.7-16.6); Lymphocytes # 1.3 10^3/uL (0.8-4.8); Lymphocytes % 32.9 %; Mean Corpuscular HGB Conc 32.1 g/dL (30.0-36.0); Mean Corpuscular Hemoglobin 28.7 pg (28.0-34.0); Mean Corpuscular Volume 89.4 fl (80-94); Mean Platelet Volume 9.9 fL (7.4-10.4); Monocytes # 0.2 10^3/uL (0.2-0.9); Monocytes % 5.3 %; Neutrophils # 2.07 10^3/uL (1.8-7.7); Neutrophils % 51.9 %; Nucleated Red Blood Cells % 0 %; Platelet Count 280 10^3/cmm (130-400); Red Blood Count 4.32 10^6/uL (4.1-5.3); Red Cell Distribution Width 12.6 % (12.1-15.1)
[2021-12-01 07:02] LABS: Alanine Aminotransferase 31 U/L (0-41); Albumin Level 3.3 g/dL (3.5-5.2); Alkaline Phosphatase 113 IU/L (40-130); Blood Urea Nitrogen 12 mg/dL (6-20); Calcium 8.2 mg/dL (8.5-10.5); Carbon Dioxide 19 mmol/L (22-29); Chloride 104 mmol/L (98-107); Globulin 2.5 g/dL (1.3-4.6); Glomerular Filtration Rate 79.4 mL/min (90-130); Glucose 203 mg/dL (65-115); Osmolality Calculated 286 mOsm/kg (285-295); Sodium 135 mmol/L (136-145); Total Bilirubin 0.2 mg/dL (0.15-1.2); Total Protein 5.8 g/dL (6.6-8.7)
[2021-12-01 07:34] LABS: Aspartate Amino Transferase 33 U/L (0-40)
[2021-12-01] MEDS: insulin lispro 100 unit/1 mL SUBCUT ×2 (09:53→12:12)
--- NOTE | 2021-12-01 09:54 | P.DS_ITS ---
Discharge Providers Date of Admission: 11/30/21 04:51 Date of Discharge: December 01, 2021 Attending Provider at Admission: Juan Foote Attending Provider at Discharge: Tiffany Burr MD Primary Care Provider: JOSE GUADALUPE Murry Diagnoses at Discharge Discharge Diagnosis (1) Acute encephalopathy: Status: Acute (2) Hypoglycemia: Status: Acute (3) Hypothermia: Status: Acute (4) Insulin dependent diabetes mellitus: Status: Acute (5) Alkaline phosphatase elevation: Status: Acute Reason for Visit Reason for Visit: LOW BLOOD SUGAR Brief History: As per HPI 51-year-old gentleman with history of insulin-dependent diabetes, was brought in for evaluation due to decreased responsiveness when found by his .? She states that she had seen him just about 5 minutes earlier and he was fidgeting with something, trying to fix flashlight for her.? She states that she stepped outside, returned and he was slumped over on the floor, holding flashlight in 1 hand, the other arm limp on the ground.? She thought he felt warm to the touch, and was clammy, so she had placed him in a bathtub as they do not have air condi tioning in the room where he was.? She reports she measured glucose which was 29 which she reported to EMS. He has so far received D50, started on infusion of D5-NS, subsequently also with additional D10. His denies any unusual behavior from him.? She believes he did take his insulin shots last evening.? She feels that he did eat during the day. Apart from occasional leg cramps which have been recurrent for him for which he sometimes takes some potassium, she states he otherwise has not had any complaints recently.? Has not complained of any headache, has had no fever, chills, nausea or vomiting, rashes, or any other new symptoms. On arrival he was noted to be hypothermic, temperature 94 F with associated bradycardia in the 50s.? This is gradually improving with bear devingger, currently 96.3. He himself wakes up some issues in the hospital, does not answer any other questions or provide any history. Hospital Course Hospital Course Patient was admitted for severe hypoglycemia and hypothermia. He was kept on D10 drip along wih D50. Trell hugger was used. As temperature improved it was removed. When seen in morning, BG was better. Diet was started and dextrose drips were weaned off. Patient is now eating normally. He has been on insulin sliding scale during hospital stay. He was not given lantus. Patient was positive for methamphetamines. When I spoke to him about this he stated that he knows someone who takes it and has a suspicion that the person might have mixed it with this food. He did admit that it was probably in his food. He was not totally opposed to the claim. Pt stated that he may have taken too much insulin accidentally that day and did not eat all that. So those two combined probably caused the hypoglycemia. He has a continuos glucose monitor at home and usually monitors his blood sugars. He takes between 1-6 units on sliding scale after meals. He has experiences hypoglycemia upto BG 60-70 range at home on lantus 30 units. HbA1c 10.5. Patient would like to go home today and has demonstrated very good understanding of controlling his blood sugar. He does not need any refils on his insulin. Him and his are both in agreement that he will wear his CGM, and monitor sugars. He will use sliding scale as needed. For now he will not take lantus at bedtime for 1-2 days and will monitor his fasting sugars. He will start off with lantus 5-10 units at bedtime and titrate up. He will see his primary care doctor as soon as possible. I will also provide referral for endocrinology with Dr Castro. I have educated him extensively on the above issues. Pt also recommended NOT to take any methamphetamines. He denies chest pain, shortness of breath, nausea, vomitting, diarrhea, constipation. He is asymptomatic. He would like to go home with his . He is being discharged in stable condition. Physical Exam Narrative: General: Alert oriented x3, patient seen laying in bed with his appearing comfortable. Thin appearing male. HEENT: Normocephalic, atraumatic, EOMI, breathing normally on room air Cardio: Regular rate rhythm, normal S1-S2, no murmurs Respiratory: Good bilateral air entry, no wheezes no rhonchi appreciated GI: Abdomen soft, nontender, nondistended, bowel sounds + Behavior: Appropriate and cooperative Extremities: NO LE edema, no cyanosis, there are some excoriations on lower extremities which he attributes to various bug bites at times[place] Discharge Data Studies Completed and Pending Completed Studies During Hospitalization Category Date Time Status CT head wo con* [id number] Stat Cat Scan 11/30/21 01:20 Completed XR chest 1V portable [id number] Urgent Exams 11/30/21 01:20 Completed Pending at discharge Category Date Time Status Amphetamine Confirmation, GC/M Routine Lab 11/30/21 19:24 Ordered Complete Blood Count w/Auto AM LABS Lab 12/02/21 04:00 Ordered Complete Blood Count w/Auto AM LABS Lab 12/03/21 04:00 Ordered Comprehensive Metabolic Panel AM LABS Lab 12/02/21 04:00 Ordered Comprehensive Metabolic Panel AM LABS Lab 12/03/21 04:00 Ordered Hemoglobin A1C Stat Lab 12/01/21 09:53 Ordered Radiology Impressions Chest X-Ray 11/30/21 01:20 IMPRESSION: Strandy and hazy opacities in the left hemithorax may represent atelectasis although left sided pneumonitis cannot be excluded. Head CT 11/30/21 01:20 IMPRESSION: No acute intracranial abnormality. Laboratory Results WBC 4.0 10^3/uL (4.0-10.0) 12/01/21 05:40 RBC 4.32 10^6/uL (4.1-5.3) 12/01/21 05:40 Hgb 12.4 g/dL (11.7-16.6) 12/01/21 05:40 Hct 38.6 % (42.0-52.0) L 12/01/21 05:40 MCV 89.4 fl (80-94) 12/01/21 05:40 MCH 28.7 pg (28.0-34.0) 12/01/21 05:40 MCHC 32.1 g/dL (30.0-36.0) 12/01/21 05:40 RDW 12.6 % (12.1-15.1) 12/01/21 05:40 Plt Count 280 10^3/cmm (130-400) 12/01/21 05:40 MPV 9.9 fL (7.4-10.4) 12/01/21 05:40 Neut % (Auto) 51.9 % 12/01/21 05:40 Lymph % (Auto) 32.9 % 12/01/21 05:40 [place] % (Auto) 5.3 % 12/01/21 05:40 Eos % (Auto) 7.3 % 12/01/21 05:40 Baso % (Auto) 2.3 % 12/01/21 05:40 Neut # (Auto) 2.07 10^3/uL (1.8-7.7) 12/01/21 05:40 Lymph # (Auto) 1.3 10^3/uL (0.8-4.8) 12/01/21 05:40 [place] # (Auto) 0.2 10^3/uL (0.2-0.9) 12/01/21 05:40 Eos # (Auto) 0.3 10^3/uL (0.0-0.8) 12/01/21 05:40 Baso # (Auto) 0.1 10^3/uL (0.0-0.1) 12/01/21 05:40 Nucleated RBC % (auto) 0 % 12/01/21 05:40 Nucleated RBCs # 0.0 /100WBC 12/01/21 05:40 Specimen Type Arterial 11/30/21 04:09 Sample Site Radial, right 11/30/21 04:09 ABG pH 7.34 (7.35-7.45) L 11/30/21 04:09 ABG pCO2 42.2 mmHg (35-45) 11/30/21 04:09 ABG pO2 105.0 mmHg (80.0-100.0) H 11/30/21 04:09 ABG HCO3 23.0 mmol/L (22-26) 11/30/21 04:09 ABG Base Excess -2.7 mmol/L (-2.0-2.0) L 11/30/21 04:09 [place] Test Pos 11/30/21 04:09 Hematocrit 37.6 % (42-52) L 11/30/21 04:09 O2 Delivery Device None 11/30/21 04:09 Government Clerk ID Hensa 11/30/21 04:09 Sodium 135 mmol/L (136-145) L 12/01/21 05:40 Potassium 4.0 mmol/L (3.5-5.1) 12/01/21 05:40 Chloride 104 mmol/L (98-107) 12/01/21 05:40 Carbon Dioxide 19 mmol/L (22-29) L 12/01/21 05:40 Anion Gap 16.0 (5-19) 12/01/21 05:40 BUN 12 mg/dL (6-20) 12/01/21 05:40 Creatinine 1.0 mg/dL (0.7-1.2) 12/01/21 05:40 GFR Calculation 79.4 mL/min (90-130) L 12/01/21 05:40 Glucose 203 mg/dL (65-115) H 12/01/21 05:40 POC Glucose 152 mg/dL (70-110) H 12/01/21 04:44 Calculated Osmolality 286 mOsm/kg (285-295) 12/01/21 05:40 Calcium 8.2 mg/dL (8.5-10.5) L 12/01/21 05:40 Total Bilirubin 0.2 mg/dL (0.15-1.2) 12/01/21 05:40 AST 33 U/L (0-40) 12/01/21 05:40 ALT 31 U/L (0-41) 12/01/21 05:40 Alkaline Phosphatase 113 IU/L (40-130) 12/01/21 05:40 Creatine Kinase 283 U/L (39-308) 11/30/21 09:00 Troponin T Baseline 17 ng/L (0-15) H 11/30/21 01:37 Troponin T 120 Minute 14.48 ng/L (0-15) 11/30/21 05:30 Delta Troponin T -2.52 ABS# (0-10) L 11/30/21 05:30 Troponin T Hi Sens 6Hr 15.03 ng/L (0-15) H 11/30/21 09:00 Troponin T Hi Sens 6Hr Delta -1.97 ng/L (0-12) L 11/30/21 09:00 Total Protein 5.8 g/dL (6.6-8.7) L 12/01/21 05:40 Albumin 3.3 g/dL (3.5-5.2) L 12/01/21 05:40 Globulin 2.5 g/dL (1.3-4.6) 12/01/21 05:40 Procalcitonin 0.18 ng/mL (0-0.5) 11/30/21 09:00 TSH Cancelled 11/30/21 09:00 Urine Color Yellow (Yellow) 11/30/21 08:56 Urine Appearance Clear (CLEAR) 11/30/21 08:56 Urine pH 5 (5-7) 11/30/21 08:56 Ur Specific [place] 1.025 (1.005-1.030) 11/30/21 08:56 Urine Protein Neg (Negative) 11/30/21 08:56 Urine Glucose (UA) 2+ (Normal) H 11/30/21 08:56 Urine Ketones Negative (Negative) 11/30/21 08:56 Urine Blood Neg (Negative) 11/30/21 08:56 Urine Nitrate Negative (Negative) 11/30/21 08:56 Urine Bilirubin Neg (Negative) 11/30/21 08:56 Urine Urobilinogen Norm mg/dL (Negative) 11/30/21 08:56 Ur Leukocyte Esterase Negative (Negative) 11/30/21 08:56 Salicylates 2.5 mg/dL (3-10) L 11/30/21 01:37 Urine Opiates Screen Negative ng/mL (Negative) 11/30/21 08:50 Acetaminophen < 5.0 ug/mL (10-30) L 11/30/21 01:37 Ur Barbiturates Screen Negative ng/mL (Negative) 11/30/21 08:50 Ur Phencyclidine Scrn Negative ng/mL (Negative) 11/30/21 08:50 Ur Amphetamines Screen Positive ng/mL (Negative) H 11/30/21 08:50 U Benzodiazepines Scrn Negative ng/mL (Negative) 11/30/21 08:50 Urine Cocaine Screen Negative ng/mL (Negative) 11/30/21 08:50 U Marijuana (THC) Screen Negative ng/mL (Negative) 11/30/21 08:50 Ethyl Alcohol < 10 mg/dL (0-10) 11/30/21 01:37 Serum Ketones Negative (Negative) 11/30/21 01:37 Vitals Last Vital Signs Temp 97.5 F L 12/01/21 03:00 Pulse 49 L 12/01/21 06:00 Resp 16 12/01/21 06:00 BP 111/73 12/01/21 06:00 Pulse Ox 95 12/01/21 06:00 Discharge Plan Discharge Patient Disposition: Home Condition: Stable Prescriptions: Continued insulin aspart U-100 [Novolog Flexpen U-100 Insulin] 100 unit/mL (3 mL) Insulin Pen See Rx Instructions .ROUTE .COMPLEX 0RF Rx Instructions: PER SLIDING SCALE aspirin 325 mg Tablet 650 mg PO BID 0RF ascorbic acid (vitamin C) 500 mg Tablet 1,000 mg PO DAILY 0RF Iron (ferrous sulfate) 325 mg (65 mg iron) Tablet 325 mg PO DAILY 0RF Flo-B Tablet 2 tab PO DAILY 0RF gabapentin 100 mg Capsule 200 mg PO TID 0RF Osteo Bi-Flex 250-200 mg Tablet 2 tab PO BID 0RF Rx Instructions: give after food/meal Cinnamon 500 mg Capsule 1,000 mg PO DAILY 0RF Glucosamine Relief 1,000 mg Tablet 1,000 mg PO DAILY 0RF Rx Instructions: administer with meals Healthy Feet And Nerves 1 caplet PO BID 0RF Changed insulin glargine [Lantus U-100 Insulin] 100 unit/mL Solution See Rx Instructions .ROUTE .COMPLEX Qty: 10 0RF Rx Instructions: Start off with lantus 5 units at bedtime and titrate up as discussed when seen today. Discharge Orders: Discharge Order (Routine); Ordered 12/01/21 Ordered By: Tiffany Burr Referrals: Laurie Frazier FNP [Primary Care Provider] - 1-3 days Shari Castro MD [Physician] - 4-7 days Discharge Diet: Diabetic Discharge Activity: Resume usual activity Patient Instructions: Opioid Safety Activity Restrictions/Additional Instructions: Please refrain from methamphetamine use. Please continue to check your blood sugars and do not take insulin if you are not eating that day as discussed in the hospital. Your A1C was 10.5. Please start on lantus 5 units and titrate up based on your fasting sugars as discussed when you were seen today. Please follow up with your primary care doctor at discharge. Discharge Attestations Time Spent in Discharge Care*: greater than 30 min Quality Metrics Clinical Quality Measures [ No reported AMI, CVA or VTE this stay] Coding Level of Care Code Acute Chg FW DC note Diagnoses Acute encephalopathy G93.40 Hypoglycemia E16.2 Hypothermia T68.XXXA Insulin dependent diabetes mellitus Alkaline phosphatase elevation R74.8 Time Spent (min) 30
[2021-12-01 11:23] LABS: Estmated Average Glucose 255; Hemoglobin A1C 10.5 % (4.0-6.0)
[2021-12-01 22:17] LABS: Glucose Point of Care 255 mg/dL (70-110)
[2021-12-01 22:17] LABS: Glucose Point of Care 235 mg/dL (70-110)
[2021-12-01 22:17] LABS: Glucose Point of Care 215 mg/dL (70-110)
[2021-12-01 22:17] LABS: Glucose Point of Care 278 mg/dL (70-110)
[2021-12-07 11:07] LABS: Amphetamine 2600 ng/mL; Methamphetamine >20000 ng/mL; Methylenedioxyamphetamine negative; Methylenedioxyethylamphetamine negative; Methylenedioxymethamphetamine negative
== END 2021-12-01 12:30 | disposition home or self-care (01) ==
LOC: ER 04:50 → ICU 05:06
PROVIDERS: Admitting Provider Internal Medicine; Emergency Provider Emergency Medicine; PCP Nurse Practitioner; Visit Provider Internal Medicine
DX: E11.649 Type 2 diabetes mellitus with hypoglycemia without coma (principal); T68.XXXA Hypothermia, initial encounter; G93.40 Encephalopathy, unspecified; R74.8 Abnormal levels of other serum enzymes
CPT/HCPCS: 36415; 36416; 36600; 70450; 71045; 80053; 80306; 80307; 80324; 80359; 81003; 82009; 82550; 82803; 82962; 83036; 84145; 84443; 84484; 85025; 93005; 96361; 96372; 96374; 96375; 99285; C9113; G0378; J1644; J1815; J3411

== ENCOUNTER 2022-08-20 16:35 | Inpatient (IN) | payer OTHER, SELFPAY ==
[2022-08-20] VITALS (8 sets, daily range): BP systolic 127–152; BP diastolic 78–88; PULSE 70–88; RESP 14–21; TEMP 36–37; O2SAT 95–99; BMI 22.1; BMI 22.0
[2022-08-20 16:49] LABS: Glucose Point of Care 68 mg/dL (70-110)
--- NOTE | 2022-08-20 16:56 | ECG_ITS ---
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 Measurements Intervals [place] Rate: 76 P: 50 OR: 120 QRS: 27 QRSD: 109 T: 56 QT: 415 QTc: 468 Interpretive Statements SINUS RHYTHM Compared to ECG 11/30/2021 09:53:27 No significant changes Electronically Signed On 08-21-2022 2:19:45 CDT by Ximena Blanchard M.D. [email or web address] hospitalPlastyc[email or web address].[employer]/store/[id number]
--- NOTE | 2022-08-20 16:56 | CTR_ITS ---
PROCEDURE INFORMATION: Exam: CT Head Without Contrast Exam date and time: 08/20/2022 5:21 PM Age: 52 years old Clinical indication: Altered mental status/memory loss and other: Seizure; Confusion or disorientation TECHNIQUE: Imaging protocol: Computed tomography of the head without contrast. Radiation optimization: All CT scans at this facility use at least one of these dose optimization techniques: automated exposure control; mA and/or kV adjustment per patient size (includes targeted exams where dose is matched to clinical indication); or iterative reconstruction. REPORTING DATA: Count of CT and Cardiac NM exams in prior 12 months: This patient has received [address] and 0 known cardiac nuclear medicine studies in the 12 months prior to the current study. COMPARISON: CT head wo con* [id number] 11/30/2021 1:53 AM RADIATION DOSE METRICS: Total DLP (mGy-cm): 1207.23 FINDINGS: Brain: No focal hemorrhage or midline shift is identified. The ventricles and parenchyma show mild atrophy and chronic bicerebral white matter ischemic change. Cerebral ventricles: No ventriculomegaly or evidence of hydrocephalus. Paranasal sinuses: No evidence of acute sinusitis. Mastoid air cells: Visualized mastoid air cells are well aerated. Bones/joints: No displaced skull fracture is noted. Soft tissues: Unremarkable. CT/CT head wo con* [id number] IMPRESSION: 1. No acute intracranial abnormality. 2. Mild age-related changes.
[2022-08-20] MEDS: dextrose 10% 1,000 ML 150 ML IV (17:06)
[2022-08-20 17:16] LABS: Hematocrit 40.4 % (42.0-52.0); Hemoglobin 13.3 g/dL (11.7-16.6); Lymphocytes # 0.7 10^3/uL (0.8-4.8); Lymphocytes % 16.9 %; Mean Corpuscular HGB Conc 32.9 g/dL (30.0-36.0); Mean Corpuscular Hemoglobin 27.8 pg (28.0-34.0); Mean Corpuscular Volume 84.3 fl (80-94); Mean Platelet Volume 9.2 fL (7.4-10.4); Monocytes # 0.3 10^3/uL (0.2-0.9); Monocytes % 7.1 %; Neutrophils % 73.8 %; Nucleated Red Blood Cells % 0 %; Platelet Count 288 10^3/cmm (130-400); Red Blood Count 4.79 10^6/uL (4.1-5.3); Red Cell Distribution Width 12.5 % (12.1-15.1); White Blood Count 4.2 10^3/uL (4.0-10.0)
[2022-08-20 17:37] LABS: Lactic Sepsis W/Reflex 0.7 mmol/L (0.5-2.2)
[2022-08-20 17:51] LABS: Procalcitonin 1.94 ng/mL (0-0.5); Prolactin 7.58 ng/mL (4.0-15.2)
--- NOTE | 2022-08-20 17:52 | ED_ITS ---
HPI - General Adult General: Chief complaint: General Medical Stated complaint: DIABETIC EMERGENCY Time Seen by Provider: 08/20/22 16:54 History of Present Illness: Patient reports to the ER by EMS with side effects of low blood sugar. Patient was unresponsive at home when EMS arrived there his blood sugar was in the 30s they gave him some D10 his blood sugar went upwards over 100 they say he had seizure-like activity and I gave him 2 mg Ativan and transported him to the hospital. By the time he was here we rechecked his blood sugar and it was 68. Patient is definitely altered and is thinking but is alert. MD complaint: Diabetic emergencies/hypoglycemia/seizure/altered mental status Onset (ago): unknown Exacerbating factors: other (Insulin-dependent diabetes) Associated symptoms: Reports other (Seizure/altered mental status) Treatments prior to arrival: other (D10, Ativan) Review of Systems General: Reports: ROS unobtainable due to mental status PFS ED PFSH: Medical History Insulin dependent diabetes mellitus Lung cancer Surgical History History of pneumonectomy Family History Other Diabetes Social History Smoking and tobacco status: never smoked Alcohol intake: never Lives independently: Yes Household members: spouse Marital status: 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 Physical Exam Const: COMMON NORMALS: average body habitus, alert and well nourished EXAM LIMITATIONS: altered mental status HENMT: COMMON NORMALS: normocephalic, atraumatic, hearing grossly normal bilaterally, external ears normal, Normal external nose present and moist oral mucous membranes HEAD & SCALP: normocephalic and atraumatic NOSE: Normal external nose present EXTERNAL EAR: Yes external ears normal Eye: COMMON NORMALS: Equal, round and reactive pupils present, EOMs intact bilaterally, conjunctivae normal and no scleral icterus CONJUNCTIVA: Yes conjunctivae normal PUPIL: Yes Equal, round and reactive pupils present Neck/C-Spine: COMMON NORMALS: full ROM, no lymphadenopathy, supple, no meningeal signs, no JVD and Thyroid normal THYROID: Thyroid normal Chest: COMMONS NORMALS: normal inspection of the chest and normal palpation of entire chest wall Resp: COMMON NORMALS: normal respiratory effort, No retractions, No use of accessory muscles and clear to auscultation bilaterally AUSCULTATION: clear to auscultation bilaterally Cardio: COMMON NORMALS: no JVD GI: COMMON NORMALS: Normal to inspection, nondistended, normoactive bowel sounds present, Soft to palpation, non-tender, No hepatosplenomegaly present and no masses PALPATION: Yes Soft to palpation and Yes No hepatosplenomegaly present : COMMON NORMALS: Yes no CVA tenderness BLADDER/KIDNEY EXAM: Yes no CVA tenderness Back/Pelvis: COMMON NORMALS: no CVA tenderness Extremity: COMMON NORMALS: normal to inspection Neuro: SENSORIUM/ORIENTATION: Yes alert MENINGEAL SIGNS: Yes no meningeal signs Psych: APPEARANCE: Yes unkempt ATTITUDE: Yes Belligerent attititude/behavior present ACTIVITY/MOTOR BEHAVIOR: Yes appropriate eye contact and Yes psychomotor agitation THOUGHT PROCESS: disorganized Course Vital Signs: Vital signs: Vital Signs Temperature 96.8 F L 08/20/22 16:36 Pulse Rate 80 08/20/22 21:22 Respiratory Rate 16 08/20/22 21:22 Blood Pressure 127/88 08/20/22 21:22 Pulse Oximetry 95 08/20/22 21:22 Oxygen Delivery Me thod 08/20/22 21:22 MDM - General Adult Medical Decision Making Patient presented by EMS with altered mental status, resistant hypoglycemia, seizures, patient is an insulin-dependent diabetic who was found to have a blood sugar in the 30s after dextrose given by EMS patient had a seizure. Upon arrival here patient's blood sugar was back down to 70s patient is still altered. Lab work was obtained on the patient as well as CTs of his head and ch est x-ray. Patient is still requiring approximately 200 mL/h of D10 to keep his blood sugar stable at approximately 100. Due to this and not knowing if he was compliant with his insulin which is Lantus is felt patient would benefit from inpatient admission probably in the ICU on a D10 drip. Dr. Burr was consulted who agrees with admission. Family was at bedside and this was asked expressed to family and they are agreeable. Differential Diagnosis Hypoglycemia, encephalopathy, seizures, Lab Data 08/20/22 17:09 08/20/22 17:[address] 08/20/22 16:56 IMPRESSION: 1. No acute intracranial abnormality. 2. Mild age-related changes. Chest X-Ray 08/20/22 19:07 IMPRESSION: Mildly decreased lung volumes with mild accentuation of the pulmonary vascularity. No confluent infiltrates in the lungs. Laboratory Results WBC 4.2 10^3/uL (4.0-10.0) 08/20/22 17:09 RBC 4.79 10^6/uL (4.1-5.3) 08/20/22 17:09 Hgb 13.3 g/dL (11.7-16.6) 08/20/22 17:09 Hct 40.4 % (42.0-52.0) L 08/20/22 17:09 MCV 84.3 fl (80-94) 08/20/22 17:09 MCH 27.8 pg (28.0-34.0) L 08/20/22 17:09 MCHC 32.9 g/dL (30.0-36.0) 08/20/22 17:09 RDW 12.5 % (12.1-15.1) 08/20/22 17:09 Plt Count 288 10^3/cmm (130-400) 08/20/22 17:09 MPV 9.2 fL (7.4-10.4) 08/20/22 17:09 Neut % (Auto) 73.8 % 08/20/22 17:09 Lymph % (Auto) 16.9 % 08/20/22 17:09 [place] % (Auto) 7.1 % 08/20/22 17:09 Eos % (Auto) 1.0 % 08/20/22 17:09 Baso % (Auto) 1.0 % 08/20/22 17:09 Neut # (Auto) 3.10 10^3/uL (1.8-7.7) 08/20/22 17:09 Lymph # (Auto) 0.7 10^3/uL (0.8-4.8) L 08/20/22 17:09 [place] # (Auto) 0.3 10^3/uL (0.2-0.9) 08/20/22 17:09 Eos # (Auto) 0.0 10^3/uL (0.0-0.8) 08/20/22 17:09 Baso # (Auto) 0.0 10^3/uL (0.0-0.1) 08/20/22 17:09 Nucleated RBC % (auto) 0 % 08/20/22 17:09 Nucleated RBCs # 0.0 /100WBC 08/20/22 17:09 Sodium 137 mmol/L (136-145) 08/20/22 17:09 Potassium 3.5 mmol/L (3.5-5.1) 08/20/22 17:09 Chloride 102 mmol/L (98-107) 08/20/22 17:09 Carbon Dioxide 25 mmol/L (22-29) 08/20/22 17:09 Anion Gap 13.5 (5-19) 08/20/22 17:09 BUN 8 mg/dL (6-20) 08/20/22 17:09 Creatinine 0.7 mg/dL (0.7-1.2) 08/20/22 17:09 GFR Calculation 119.4 mL/min (90-130) 08/20/22 17:09 Glucose 43 mg/dL (65-115) L 08/20/22 17:09 POC Glucose 107 mg/dL (70-110) 08/20/22 18:59 Calculated Osmolality 279 mOsm/kg (285-295) L 08/20/22 17:09 Lactic Acid 0.7 mmol/L (0.5-2.2) 08/20/22 17:09 Calcium 7.6 mg/dL (8.5-10.5) L 08/20/22 17:09 Magnesium 1.5 mg/dL (1.7-2.3) L 08/20/22 17:09 Total Bilirubin 0.2 mg/dL (0.15-1.2) 08/20/22 17:09 AST 31 U/L (0-40) 08/20/22 17:09 ALT 22 U/L (0-41) 08/20/22 17:09 Alkaline Phosphatase 123 U/L (40-130) 08/20/22 17:09 Total Protein 6.0 g/dL (6.6-8.7) L 08/20/22 17:09 Albumin 3.4 g/dL (3.5-5.2) L 08/20/22 17:09 Globulin 2.6 g/dL (1.3-4.6) 08/20/22 17:09 Procalcitonin 1.94 ng/mL (0-0.5) H 08/20/22 17:09 Prolactin 7.58 ng/mL (4.0-15.2) 08/20/22 17:09 Discharge Plan Discharge Patient Disposition: Admitted As Inpatient Admit Provider: Tiffany Burr Clinical Impression: Insulin dependent diabetes mellitus, Hypoglycemia due to insulin, Acute alteration in mental status, Seizure, Hypomagnesemia Condition: Stable Coding Level of Care Code ED 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
[2022-08-20 18:02] LABS: Alanine Aminotransferase 22 U/L (0-41); Albumin Level 3.4 g/dL (3.5-5.2); Alkaline Phosphatase 123 U/L (40-130); Aspartate Amino Transferase 31 U/L (0-40); Blood Urea Nitrogen 8 mg/dL (6-20); Calcium 7.6 mg/dL (8.5-10.5); Carbon Dioxide 25 mmol/L (22-29); Chloride 102 mmol/L (98-107); Globulin 2.6 g/dL (1.3-4.6); Glomerular Filtration Rate 119.4 mL/min (90-130); Glucose 43 mg/dL (65-115); Magnesium 1.5 mg/dL (1.7-2.3); Osmolality Calculated 279 mOsm/kg (285-295); Sodium 137 mmol/L (136-145); Total Bilirubin 0.2 mg/dL (0.15-1.2)
[2022-08-20 18:03] LABS: Anion Gap 13.5 (5-19); Potassium 3.5 mmol/L (3.5-5.1)
[2022-08-20 19:03] LABS: Glucose Point of Care 107 mg/dL (70-110)
--- NOTE | 2022-08-20 19:07 | XRR_ITS ---
PROCEDURE INFORMATION: Exam: XR Chest Exam date and time: 08/20/2022 7:13 PM Age: 52 years old Clinical indication: Other: Seizure; Additional info: Altered mental status TECHNIQUE: Imaging protocol: Radiologic exam of the chest. Views: 1 view. COMPARISON: CR XR chest 1V portable [id number] 11/30/2021 1:58 AM FINDINGS: Lungs: There are mildly decreased lung volumes with mild accentuation of the pulmonary vascularity. There are no confluent interstitial or airspace opacities. Pleural spaces: There are no pleural effusions or pneumothorax. Heart/Mediastinum: The heart size is normal. There is a mildly tortuous thoracic aorta. The trachea is in the midline. Bones/joints: No acute abnormalities. XR/XR chest 1V portable [id number] IMPRESSION: Mildly decreased lung volumes with mild accentuation of the pulmonary vascularity. No confluent infiltrates in the lungs.
--- NOTE | 2022-08-20 20:59 | PM.HP ---
Providers/Chief Complaint Primary Care Provider: JOSE GUADALUPE Murry Chief Complaint: DIABETIC EMERGENCY History of Present Illness Suhas Manuel is a 52 year old male with past medical history of insulin-dependent diabetes, lung cancer presented to the hospital today via EMS because he was found to be unresponsive at home. His blood sugar was in the 30s when EMS arrived and he was given an amp of D50 which brought his sugar around 200. He then had seizure-like activity that was witnessed by EMS and was given 2 mg of Ativan and brought to the hospital. On arrival to ER blood sugar was rechecked and it was 68. Present at bedside. She states that he has been very lethargic last few days and today was unresponsive and therefore his called EMS. She states that she thinks he takes Lantus 18 units at bedtime. She states he is not very compliant to his insulin. She does not believe he also saw the landscape painter after previous admission. He has stopped wearing his continuous glucose monitor as well. Unable to obtain review of systems due to altered mental status. Head CT showed no acute intracranial abnormality with mild age-related changes, chest x-ray showed mildly decreased lung volumes with mild accentuation of the pulmonary vascularity no confluent infiltrates in the lungs. WBC 4.2, hemoglobin 13.3, platelet 288, sodium 137, potassium 3.5, creatinine 0.7, glucose 43, lactic acid 0.7, procalcitonin 1.94, prolactin 7.58. Urinalysis and urine drug screen are pending at this time. EKG did not show any acute ischemic changes. Patient did have a similar admission in November 2021 at which point he was positive for methamphetamines. He presented with hypoglycemia and hypothermia and had to be admitted to ICU and kept on a D10 drip along with a Trell hugger. Patient's hemoglobin A1c was 10.5 at that admission. He was given a referral for endocrinology at that visit and was recommended not to take any methamphetamines. He was discharged home in stable condition. Medications/Allergies Home Medications Medication Instructions Recorded Confirmed Last Taken Type insulin aspart U-100 100 unit/mL See Rx Instructions .Route .COMPLEX 09/01/21 08/20/22 Unknown History (3 mL) subcutaneous pen (Novolog FlexPen U-100 Insulin aspart) Healthy Feet And Nerves 1 caplet PO BID 11/30/21 08/20/22 08/19/22 History ascorbic acid (vitamin C) 500 mg 1,000 mg PO DAILY 11/30/21 08/20/22 08/19/22 History tablet aspirin 325 mg tablet 650 mg PO BID 11/30/21 08/20/22 08/19/22 History cinnamon bark 500 mg capsule 1,000 mg PO DAILY 11/30/21 08/20/22 08/19/22 History (Cinnamon) ferrous sulfate 325 mg (65 mg 325 mg PO DAILY 11/30/21 08/20/22 08/19/22 History iron) tablet (Iron (ferrous sulfate)) glucosamine sulfate 2KCl 1,000 mg 1,000 mg PO DAILY 11/30/21 08/20/22 08/19/22 History tablet (Glucosamine Relief) glucosamine-chondroitin 250 mg-200 2 tab PO BID 11/30/21 08/20/22 08/19/22 History mg tablet (Osteo Bi-Flex) insulin glargine 100 unit/mL See Rx Instructions .Route 12/01/21 08/20/22 08/19/22 Rx subcutaneous solution (Lantus .COMPLEX #10 mL U-100 Insulin) gabapentin 300 mg capsule 300 mg PO TID 08/20/22 08/20/22 08/19/22 History Allergies Allergy/AdvReac Type Severity Reaction Status Date / Time No Known Allergies Allergy Verified 08/20/22 16:51 PFSH Acute PFSH: Medical History Insulin dependent diabetes mellitus Lung cancer Surgical History History of pneumonectomy Family History Other Diabetes Social History Smoking and tobacco status: never smoked Alcohol intake: never Lives independently: Yes Household members: spouse Marital status: 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 Vitals/I&O/Wt Last Vital Signs Temp 96.8 F L 08/20/22 16:36 Pulse 88 08/20/22 16:36 Resp 21 H 08/20/22 16:36 BP 140/85 08/20/22 16:36 Pulse Ox 96 08/20/22 16:36 O2 Del Method 08/20/22 16:36 08/20/22 08/20/22 08/20/22 06:59 14:59 22:59 Intake Total 147.5 / 147.5 Balance 147.5 / 147.5 Weight last 48 hrs Weight 68.039 kg Physical Exam Narrative: General: Lethargic obtunded, patient seen laying in bed, HEENT: Normocephalic, atraumatic, EOMI, breathing normally on room air Cardio: Regular rate rhythm, normal S1-S2, no murmurs Respiratory: Good bilateral air entry, no wheezes no rhonchi appreciated GI: Abdomen soft, nontender, nondistended, bowel sounds + Extremities: NO LE edema, no cyanosis, moves extremities Neuro: Unable to do a full neuro exam, patient is not very responsive at this time. However he is able to protect his airway. Knox draining clear yellow urine. Data 08/20/22 17:09 08/20/22 17:09 A&P Assessment and plan (1) Hypoglycemia due to insulin: (2) Acute alteration in mental status: (3) Seizure: (4) Hypomagnesemia: (5) Insulin dependent diabetes mellitus: (6) Unresponsive episode: (7) History of drug abuse: Plan #Hypoglycemia #Hypothermia #Unresponsive state #Seizure-like activity #Insulin-dependent diabetes mellitus #History of similar admit last year with methamphetamine being positive in system and patient took extra Lantus accidentally #Peripheral neuropathy #History of drug abuse ? Patient has received 2 A of D50 since arrival and 2 mg Ativan for seizure like activity however not confirmed if it was a true seizure ? Continue D10 drip at this time, every hour blood glucose checks ? Keep n.p.o. ? Hold home Lantus, sliding scale insulin ? Hold antihyperglycemics ? Check hemoglobin A1c ? Continue active rewarming protocol with Trell davidson ? Check rectal temperature as per protocol ? Check urine drug screen ? Place Knox catheter ? Check urinalysis ? Check blood cultures, urine culture, sputum culture Gram stain ? Procalcitonin elevated at 1.94 ? Check CT chest abdomen pelvis without contrast ? Possibility of inaccurate insulin dosing at home? ? Check TSH, cortisol level ? Check troponin series ? Monitor on cardiac telemetry ? Patient does not have a history of seizures. We will monitor and administer Keppra should another 1 occurred. Initial seizure-like activity most likely due to severe hyperglycemia noted on EMS arrival at home. ? Hold gabapentin at this time ? Admit to ICU ? Check echo ? Chest x-ray reviewed personally and no apparent infiltrate or consolidative changes noted. ? Check CT abdomen pelvis without contrast ? Placed on hypoglycemia protocol. ? Continue on empiric antibiotics vancomycin and Zosyn. De-escalate when able. Full code SCDs Heparin SQ twice daily Attestations Medical Necessity Statement*: Patient will need greater than 2 midnight stay for management of hypoglycemia and work-up of the above. Other Coding Information Focused coding review requested Diagnoses Hypoglycemia due to insulin E16.0; T38.3X5A Acute alteration in mental status R41.82 Seizure R56.9 Hypomagnesemia E83.42 Insulin dependent diabetes mellitus Unresponsive episode R41.89 History of drug abuse F19.11
--- NOTE | 2022-08-20 21:43 | CTR_ITS ---
PROCEDURE INFORMATION: Exam: CT Chest Without Contrast; Diagnostic Exam date and time: 08/20/2022 10:17 PM Age: 52 years old Clinical indication: Other: Hypoglycemia/lethargy; Patient HX: Patient brought to er for hypoglycemiia and lethargy. Blood glucose reading of 43. History of lung cancer. ; Additional info: Rule out infective pathology TECHNIQUE: Imaging protocol: Diagnostic computed tomography of the chest without contrast. Radiation optimization: All CT scans at this facility use at least one of these dose optimization techniques: automated exposure control; mA and/or kV adjustment per patient size (includes targeted exams where dose is matched to clinical indication); or iterative reconstruction. REPORTING DATA: Count of CT and Cardiac NM exams in prior 12 months: This patient has received 2 known CTs and 0 known cardiac nuclear medicine studies in the 12 months prior to the current study. COMPARISON: CT chest w con* [id number] 09/21/2018 1:34 PM RADIATION DOSE METRICS: Total DLP (mGy-cm): 932.71 FINDINGS: Lungs: Patchy areas of bilateral mid to lower lung airspace disease are present, especially in the LLL superior segment. Apparent previous RUL lobectomy. Correlate with surgical history. [id number] left lung base pleuroparenchymal scarring. Pleural spaces: No pneumothorax. No pleural effusion. Heart: The heart is normal size. No pericardial effusion. Coronary arteries: Mild LAD coronary artery calcification. Lymph nodes: No bulky mediastinal or hilar lymphadenopathy noted. Vasculature: No acute finding noted. No aortic aneurysm. Bones/joints: No acute fracture. Soft tissues: Unremarkable. PROCEDURE INFORMATION: Exam: CT Abdomen And Pelvis Without Contrast Exam date and time: 08/20/2022 10:17 PM Age: 52 years old Clinical indication: Other: Hypoglycemia/lethargy; Patient HX: Patient brought to er for hypoglycemiia and lethargy. Blood glucose reading of 43. History of lung cancer. ; Additional info: Rule out infective pathology TECHNIQUE: Imaging protocol: Computed tomography of the abdomen and pelvis without contrast. Radiation optimization: All CT scans at this facility use at least one of these dose optimization techniques: automated exposure control; mA and/or kV adjustment per patient size (includes targeted exams where dose is matched to clinical indication); or iterative reconstruction. REPORTING DATA: Count of CT and Cardiac NM exams in prior 12 months: This patient has received 2 known CTs and 0 known cardiac nuclear medicine studies in the 12 months prior to the current study. COMPARISON: US gall bladder [id number] 09/01/2021 2:46 PM RADIATION DOSE METRICS: Total DLP (mGy-cm): 932.71 FINDINGS: Tubes, catheters and devices: Knox catheter present. Lungs: Lung base atelectasis or scarring, see above chest CT report. Liver: Unremarkable. No discrete mass. Gallbladder and bile ducts: No calcified gallstones or biliary dilation identified. Pancreas: The pancreas is atrophic with diffuse glandular calcification. Spleen: The spleen is not enlarged. No suspicious mass is noted. Adrenal glands: Normal. No mass. Kidneys and ureters: Numerous small bilateral kidney stones measure up to about 5 mm. Possible small right renal cyst. Stomach and bowel: The colon is moderately fecal filled. No small bowel dilation. Question mid to distal colon wall thickening. Appendix: No evidence of appendicitis. Intraperitoneal space: Unremarkable. No free air. No suspicious fluid collection. Vasculature: Advanced diffuse vascular calcification noted. Lymph nodes: No enlarged lymph nodes. Urinary bladder: The bladder wall is moderately thickened. Reproductive: Unremarkable as visualized. Bones/joints: At least mild lumbar spine DJD. Soft tissues: No acute or suspicious finding noted. CT/[place] [id number] IMPRESSION: 1. Hazy areas of [id number]-[id number]-right mid to lower lung atelectasis or developing pneumonia. Recommend three-month follow-up. 2. Apparent previous RUL lobectomy, correlate with surgical history. The nodule seen in the right upper lobe on 09/21/2018 is now absent. 3. A few chronic findings above. IMPRESSION: 1. No high-grade small bowel obstruction, abscess or free air. 2. Knox catheter present with concern for cystitis. 3. Fecal filled colon. Low-grade colitis possible on this unenhanced examination. 4. Kidney stones and chronic pancreatitis. Other chronic findings above. COMMENTS: Consistent with the [employer]'s Incidental Findings Committee white paper (J Am Antonino Radiol 2018): Any incidental renal lesion less than 1 cm or classified as too small to characterize, or any incidental cystic renal lesion characterized as simple-appearing, is likely benign. No follow-up imaging is recommended for these lesions per consensus recommendations based on imaging criteria.
[2022-08-20 21:44] LABS: Add Urine Microscopic? NO; Charge for UA Resulting for Rev
[2022-08-20 21:48] LABS: Bilirubin Urine Neg (Negative); Blood Urine Neg (Negative); Glucose Urine UA Norm (Normal); Ketones Urine Negative (Negative); Leukocyte Esterase Urine Negative (Negative); Nitrate Urine Negative (Negative); Protein Urine Neg (Negative); Specific Gravity, Urine 1.015 (1.005-1.030); Urine Appearance Clear (CLEAR); Urine Color Yellow (Yellow); Urobilinogen Urine Norm (Negative); pH Urine 6.5 (5-7)
[2022-08-20] MEDS: ketorolac 30 mg/mL INJ IVP (21:52)
[2022-08-20 22:00] LABS: Amphetamines Screen Urine Positive (Negative); Barbiturates Screen Urine Negative (Negative); Benzodiazepines Screen Urine Positive (Negative); Cocaine Screen Urine Negative (Negative); Opiate Screen Urine Negative (Negative); PCP Screen Urine Negative (Negative); THC Screen Urine Negative (Negative)
--- NOTE | 2022-08-20 22:10 | PC.NURSE ---
report called to MARTINEZ PARKER @ [phone]
[2022-08-20 22:31] LABS: Estmated Average Glucose 280; Hemoglobin A1C 11.4 % (4.0-6.0)
[2022-08-20] MEDS: dextrose 10% 1,000 ML 200 ML IV (22:46)
[2022-08-20 22:52] LABS: Glucose Point of Care 38 mg/dL (70-110)
[2022-08-20 23:01] LABS: Chol HDL Ratio 2.39 mg/dL (1.0-5.00); Cholesterol 146 mg/dL (0-200); HDL Cholesterol 61 mg/dL (60-100); LDL Cholesterol Calculated 79 mg/dL (50-129); Thyroid Stimulating Hormone 2.01 uIU/mL (0.27-4.20); Triglycerides 31 mg/dL (0-150)
[2022-08-20] MEDS: magnesium sulfate premix 2 GM/50 ML PIGGYBACK IV (23:02)
[2022-08-20] MEDS: vancomycin 1,000 MG in sodium chloride 0.9% 250 ML 250 MG IV (23:02)
[2022-08-20 23:14] LABS: Glucose Point of Care 126 mg/dL (70-110)
[2022-08-20 23:26] LABS: Lactic Sepsis W/Reflex 0.7 mmol/L (0.5-2.2)
[2022-08-20] MEDS: heparin 5,000 unit/mL INJ 1 mL 5000 UNIT SUBCUT (23:40)
[2022-08-21] VITALS (228 sets, daily range): BP systolic 115–171; BP diastolic 66–107; PULSE 60–92; RESP 3–22; TEMP 36.2–37; O2SAT 92–100
[2022-08-21 00:14] LABS: Glucose Point of Care 100 mg/dL (70-110)
[2022-08-21 00:14] LABS: Glucose Point of Care 88 mg/dL (70-110)
[2022-08-21] MEDS: piperacillin-tazobactam 3.375 GM in sodium chloride 0.9% (plus) 50 ML IV ×4 (00:39→22:43)
[2022-08-21] MEDS: sodium chloride 0.9% 1,000 ML 75 ML IV ×2 (00:39→14:47)
[2022-08-21 00:51] LABS: Glucose Point of Care 84 mg/dL (70-110)
[2022-08-21 01:37] LABS: Glucose Point of Care 88 mg/dL (70-110)
[2022-08-21 02:24] LABS: Basophils % 0.9 %; Eosinophils # 0.1 10^3/uL (0.0-0.8); Hematocrit 40.6 % (42.0-52.0); Hemoglobin 13.1 g/dL (11.7-16.6); Lymphocytes # 1.2 10^3/uL (0.8-4.8); Lymphocytes % 25.5 %; Mean Corpuscular HGB Conc 32.3 g/dL (30.0-36.0); Mean Corpuscular Hemoglobin 27.2 pg (28.0-34.0); Mean Corpuscular Volume 84.4 fl (80-94); Mean Platelet Volume 9.6 fL (7.4-10.4); Monocytes # 0.4 10^3/uL (0.2-0.9); Monocytes % 8.5 %; Neutrophils # 2.89 10^3/uL (1.8-7.7); Neutrophils % 62.9 %; Nucleated Red Blood Cells % 0 %; Platelet Count 263 10^3/cmm (130-400); Red Blood Count 4.81 10^6/uL (4.1-5.3); Red Cell Distribution Width 12.4 % (12.1-15.1); White Blood Count 4.6 10^3/uL (4.0-10.0)
[2022-08-21 02:49] LABS: Alanine Aminotransferase 22 U/L (0-41); Albumin Level 3.1 g/dL (3.5-5.2); Alkaline Phosphatase 115 U/L (40-130); Aspartate Amino Transferase 29 U/L (0-40); Blood Urea Nitrogen 7 mg/dL (6-20); Calcium 8.3 mg/dL (8.5-10.5); Carbon Dioxide 24 mmol/L (22-29); Chloride 102 mmol/L (98-107); Glomerular Filtration Rate 89.3 mL/min (90-130); Glucose 90 mg/dL (65-115); Magnesium 2.5 mg/dL (1.7-2.3); Osmolality Calculated 278 mOsm/kg (285-295); Phosphorus 3.1 mg/dL (2.5-4.5); Sodium 135 mmol/L (136-145); Total Bilirubin 0.2 mg/dL (0.15-1.2); Total Protein 6.1 g/dL (6.6-8.7)
[2022-08-21 02:50] LABS: Anion Gap 12.8 (5-19); Potassium 3.8 mmol/L (3.5-5.1)
[2022-08-21 02:51] LABS: Glucose Point of Care 93 mg/dL (70-110)
[2022-08-21 02:55] LABS: Cortisol Random 8.36 ug/dL (2.47-19.5)
[2022-08-21] MEDS: dextrose 10% 1,000 ML 200 ML IV ×2 (04:20→09:48)
[2022-08-21 05:05] LABS: Glucose Point of Care 59 mg/dL (70-110)
[2022-08-21 05:18] LABS: Glucose Point of Care 135 mg/dL (70-110)
[2022-08-21 06:08] LABS: Glucose Point of Care 141 mg/dL (70-110)
[2022-08-21] MEDS: vancomycin 1,000 MG in sodium chloride 0.9% 250 ML 250 MG IV ×2 (06:27→14:44)
[2022-08-21 08:18] LABS: Glucose Point of Care 159 mg/dL (70-110)
[2022-08-21 08:58] LABS: Lipase 8 U/L (13-60)
[2022-08-21 09:13] LABS: Glucose Point of Care 132 mg/dL (70-110)
[2022-08-21] MEDS: heparin 5,000 unit/mL INJ 1 mL 5000 UNIT SUBCUT ×2 (09:48→22:44)
[2022-08-21 11:33] LABS: Glucose Point of Care 188 mg/dL (70-110)
[2022-08-21 12:59] LABS: Glucose Point of Care 229 mg/dL (70-110)
[2022-08-21 14:00] LABS: Glucose Point of Care 248 mg/dL (70-110)
--- NOTE | 2022-08-21 14:00 | PM.PN ---
Subjective Subjective: Patient with seen this morning, currently on D10, nursing staff tell me whenever they turn off the D10 his blood sugars drop, he tells me he is hungry this morning, alert and awake, his mom at bedside tells me that they have been having financial issues, and car troubles, since difficult for them to go to town to get food, food has been in short supply, he denies taking more than prescribed insulin, Vitals/I&O/Wt Last Vital Signs Temp 97.2 F L 08/21/22 12:50 Pulse 81 08/21/22 13:30 Resp 18 08/21/22 13:30 BP 140/97 08/21/22 13:30 Pulse Ox 100 08/21/22 13:30 O2 Del Method Room Air 08/21/22 12:50 08/20/22 08/21/22 08/21/22 22:59 06:59 14:59 Intake Total 1000.0 / 1000.0 1350 / 2350.0 2218.667 / 2218.667 Output Total 450 / 450 1200 / 1200 Balance 1000.0 / 1000.0 900 / 1900.0 1018.667 / 1018.667 Weight last 48 hrs Weight 65.771 kg Weight 68.039 kg Physical Exam Const: COMMON NORMALS: no acute distress and patient oriented x3 Resp: COMMON NORMALS: normal respiratory effort, No retractions, No use of accessory muscles and clear to auscultation bilaterally AUSCULTATION: clear to auscultation bilaterally Cardio: COMMON NORMALS: regular rate, regular rhythm, S1 normal heart sound present and S2 normal heart sound present RATE: regular rate RHYTHM: regular rhythm HEART SOUNDS: S1 normal heart sound present and S2 normal heart sound present GI: COMMON NORMALS: Normal to inspection, nondistended, normoactive bowel sounds present and non-tender Extremity: COMMON NORMALS: no pedal edema Neuro: COMMON NORMALS: patient oriented x3 Psych: COMMON NORMALS: mental status grossly normal Urinary Catheter Management: Knox: Cath Placed During This Visit: yes Reason for Continuing Indwelling Catheter: Accurate Measurement of Urinary Output in Critically Ill Patients Urinary Catheter Date of Insertion: 08/20/22 Urinary Catheter Time of Insertion: 19:00 Data 08/21/22 01:48 08/21/22 01:48 Micro: Microbiology 08/20/22 22:46 Blood Culture - Preliminary Blood SPECIMEN COLLECTED 08/20/22 22:46 Blood Culture - Preliminary Blood SPECIMEN COLLECTED A&P Assessment and plan (1) Methamphetamine abuse: (2) Pneumonia: (3) Hypoglycemia due to insulin: (4) Acute alteration in mental status: (5) Seizure: (6) Hypomagnesemia: (7) Insulin dependent diabetes mellitus: (8) Unresponsive episode: (9) History of drug abuse: Plan #Pneumonia #Hypoglycemia #Hypothermia #Unresponsive state #Seizure-like activity #Insulin-dependent diabetes mellitus #History of similar admit last year with methamphetamine being positive in system and patient took extra Lantus accidentally #Peripheral neuropathy #History of drug abuse ? Patient has received 2 A of D50 since arrival and 2 mg Ativan for seizure like activity however not confirmed if it was a true seizure ? Continue D10 drip at this time, every hour blood glucose checks, will wean off, ? Advance diet if he passes swallow evaluation, -Diabetic education ? Hold home Lantus, sliding scale insulin ? Hold antihyperglycemics ? Hemoglobin A1c 11.4 ? Continue active rewarming protocol with Trell davidson ? Check rectal temperature as per protocol ? Check urine drug screen positive for methamphetamines, benzodiazepines ? Place Knox catheter ? Check blood cultures, urine culture, sputum culture Gram stain ? Procalcitonin elevated at 1.94 ? Possibility of inaccurate insulin dosing at home? ? Monitor on cardiac telemetry ? Patient does not have a history of seizures. We will monitor and administer Keppra should another 1 occurred. Initial seizure-like activity most likely due to severe hyperglycemia noted on EMS arrival at home. ? Hold gabapentin at this time ? Admit to ICU ? Check echo ? Placed on hypoglycemia protocol. ? Continue on empiric antibiotics vancomycin and Zosyn Full code SCDs Heparin SQ twice daily Attestations Medical Necessity Statement*: Patient requires hospitalization due to hypoglycemia, unresponsive state, pneumonia, methamphetamine positivity Diagnoses Methamphetamine abuse F15.10 Pneumonia J18.9 Hypoglycemia due to insulin E16.0; T38.3X5A Acute alteration in mental status R41.82 Seizure R56.9 Hypomagnesemia E83.42 Insulin dependent diabetes mellitus Unresponsive episode R41.89 History of drug abuse F19.11
[2022-08-21 14:48] LABS: Erythrocyte Sedimentation Rate 24 mm/hr (0-10)
[2022-08-21] MEDS: polyethylene glycol 3350 Pkt 17 gm PO (14:48)
[2022-08-21 16:17] LABS: Hepatitis A Antibody IgM Non-Reactive (Nonreactive); Hepatitis B Core IgM Non-Reactive (Nonreactive); Hepatitis B Surface Antigen Non-Reactive (Nonreactive); Hepatitis C Virus Antibody Non-Reactive (Nonreactive)
[2022-08-21 16:21] LABS: Glucose Point of Care 177 mg/dL (70-110)
[2022-08-21 16:34] LABS: HIV 1 & 2 Antibody Non-Reactive (Non-Reactiv); HIV 1 & 2 Antigen Non-Reactive (Non-Reactiv)
--- NOTE | 2022-08-21 16:51 | PC.NURSE ---
SHift SUmmary: Patient rested in bed for most of the day, but was up to the chair for lunch. Mental status has improved throughout the day, currently oriented to person, place, time, and situation, but has some memory gaps, is slow to answer some questions, and may have some underlying confusion. Patient is uncoordinated as well, but that has been improving throuhgout the day. Started back on sliding scale.
[2022-08-21] MEDS: insulin lispro 100 unit/1 mL SUBCUT (17:05)
[2022-08-21] MEDS: docusate sodium 100 mg Capsule PO (17:06)
[2022-08-21 21:39] LABS: Glucose Point of Care 284 mg/dL (70-110)
[2022-08-21 22:21] LABS: Vancomycin Trough 18.8 ug/mL (10-15)
[2022-08-22] VITALS (146 sets, daily range): BP systolic 123–169; BP diastolic 70–108; PULSE 58–96; RESP 12–23; TEMP 36.4–36.9; O2SAT 94–100
[2022-08-22] MEDS: vancomycin 1,250 MG/250 ML PIGGYBACK 250 MG IV (02:37)
[2022-08-22 03:10] LABS: Basophils # 0.1 10^3/uL (0.0-0.1); Basophils % 1.5 %; Eosinophils # 0.1 10^3/uL (0.0-0.8); Eosinophils % 2.4 %; Hematocrit 36.4 % (42.0-52.0); Hemoglobin 11.8 g/dL (11.7-16.6); Lymphocytes # 1.3 10^3/uL (0.8-4.8); Mean Corpuscular HGB Conc 32.4 g/dL (30.0-36.0); Mean Corpuscular Hemoglobin 27.4 pg (28.0-34.0); Mean Corpuscular Volume 84.7 fl (80-94); Mean Platelet Volume 10.3 fL (7.4-10.4); Monocytes # 0.3 10^3/uL (0.2-0.9); Neutrophils # 1.72 10^3/uL (1.8-7.7); Neutrophils % 50.8 %; Nucleated Red Blood Cells % 0 %; Platelet Count 238 10^3/cmm (130-400); Red Cell Distribution Width 12.4 % (12.1-15.1); White Blood Count 3.4 10^3/uL (4.0-10.0)
[2022-08-22] MEDS: sodium chloride 0.9% 1,000 ML 75 ML IV (03:20)
[2022-08-22 03:30] LABS: Anion Gap 15.1 (5-19); Blood Urea Nitrogen 7 mg/dL (6-20); Carbon Dioxide 23 mmol/L (22-29); Chloride 102 mmol/L (98-107); Glomerular Filtration Rate 70.9 mL/min (90-130); Glucose 281 mg/dL (65-115); Osmolality Calculated 290 mOsm/kg (285-295); Potassium 4.1 mmol/L (3.5-5.1); Sodium 136 mmol/L (136-145)
[2022-08-22 03:31] LABS: Procalcitonin 0.76 ng/mL (0-0.5)
[2022-08-22] MEDS: piperacillin-tazobactam 3.375 GM in sodium chloride 0.9% (plus) 50 ML IV (05:30)
[2022-08-22 08:17] LABS: Glucose Point of Care 238 mg/dL (70-110)
[2022-08-22 08:55] LABS: Glucose Point of Care 71 mg/dL (70-110)
[2022-08-22 08:55] LABS: Glucose Point of Care 66 mg/dL (70-110)
[2022-08-22] MEDS: insulin glargine 100 units/1 mL 10 UNIT SUBCUT (09:10)
[2022-08-22] MEDS: insulin lispro 100 unit/1 mL SUBCUT (09:10)
[2022-08-22] MEDS: heparin 5,000 unit/mL INJ 1 mL 5000 UNIT SUBCUT (09:11)
--- NOTE | 2022-08-22 11:17 | P.DS_ITS ---
Discharge Providers Date of Admission: 08/20/22 21:08 Date of Discharge: August 22, 2022 Attending Provider at Admission: Tiffany Burr MD Attending Provider at Discharge: Lucio Davila MD Primary Care Provider: JOSE GUADALUPE Murry Diagnoses at Discharge Discharge Diagnosis (1) Methamphetamine abuse: Status: Acute (2) Pneumonia: Status: Acute (3) Hypoglycemia due to insulin: Status: Acute (4) Acute alteration in mental status: Status: Acute (5) Seizure: Status: Acute (6) Hypomagnesemia: Status: Acute (7) Insulin dependent diabetes mellitus: Status: Acute (8) Unresponsive episode: Status: Acute (9) History of drug abuse: Status: Acute Reason for Visit Reason for Visit: DIABETIC EMERGENCY Hospital Course Hospital Course Suhas Manuel is a 52 year old male with past medical history of insulin- dependent diabetes, lung cancer presented to the hospital today via EMS because he was found to be unresponsive at home.? His blood sugar was in the 30s when EMS arrived and he was given an amp of D50 which brought his sugar around 200.? He then had seizure-like activity that was witnessed by EMS and was given 2 mg of Ativan and brought to the hospital.? On arrival to ER blood sugar was rechecked and it was 68.? Present at bedside.? She states that he has been very lethargic last few days and today was unresponsive and therefore his called EMS.? She states that she thinks he takes Lantus 18 units at bedtime.? She states he is not very compliant to his insulin.? She does not believe he also saw the cardroom plastic card grader after previous admission.? He has stopped wearing his continuous glucose monitor as well.? Unable to obtain review of systems due to altered mental status.? Head CT showed no acute intracranial abnormality with mild age-related changes, chest x-ray showed mildly decreased lung volumes with mild accentuation of the pulmonary vascularity no confluent infiltrates in the lungs.? WBC 4.2, hemoglobin 13.3, platelet 288, sodium 137, potassium 3.5, creatinine 0.7, glucose 43, lactic acid 0.7, procalcitonin 1.94, prolactin 7.58.? Urinalysis and urine drug screen are pending at this time.? EKG did not show any acute ischemic changes. Patient did have a similar admission in November 2021 at which point he was positive for methamphetamines.? He presented with hypoglycemia and hypothermia and had to be admitted to ICU and kept on a D10 drip along with a Trell hugger.? Patient's hemoglobin A1c was 10.5 at that admission.? He was given a referral for endocrinology at that visit and was recommended not to take any methamphetamines.? He was discharged home in stable condition. Patient was admitted to [facility] for hypoglycemia, hypothermia, unresponsive state, seizure-like activity, with urine toxicology positive for methamphetamines, benzodiazepines, and pneumonia. Patient was monitored in the ICU, receiving D10, with blood sugar checks every hour, receiving broad-spectrum antibiotic therapy for pneumonia, overall his mentation improved no recurrent seizure-like episodes, taken off D10 drip, transition to diabetic diet, received extensive diabetic education by me. He was then managed on insulin sliding scale with Lantus 10 units once daily, A1c 11.4. Overall patient clinically improved, blood sugars were reasonable, discharged on Lantus 10 units once daily, with insulin sliding scale instructions as below. Follow-up with primary care provider in the next few days, follow-up with Dr. Castro. Patient was advised to abstain from methamphetamine use, his benzodiazepine positivity is potentially from the Ativan he received in the EMS, nonetheless advised to abstain from drug use. This CT of his chest did show hazy areas left greater than right mid to lower lung atelectasis, with his history of lung cancer with lobectomy I am going to have him follow-up with pulmonary -Please monitor your blood sugars closely -Monitor your blood sugars 3 times daily as after meals -Please record your blood sugars, and a blood sugar log -For your NovoLog -Please inject blood sugar after meals based on sliding scale provided -Do not inject insulin if you do not eat as hypoglycemia kills -This is a NovoLog sliding scale -Insulin sliding ?fingerstick? Insulin ?141-180?0 units/sq 181-220?2 units/sq ?221-260?4 units/sq ?261-300 6 units/sq ?301-350?8 units/sq ?351-400 10 units/sq ?401-450?12 units/sq >450? 14units/sq -If your blood sugar is greater than 500 go to the emergency room -If your blood sugar is less than 60 or at anytime you feel lightheaded or dizzy or diaphoretic or have chest palpitations check your blood sugar, and eat a hard candy or drink orange juice and go immediately to the emergency room -Remember hypoglycemia kills, so if his blood sugar is less than 60 we have to increase it by taking in a sugary meal such as a hard candy or orange juice and go to the emergency room -If you have any questions please call us where here to help -I have discharged on Lantus 10 units in the morning -For your pneumonia please take Augmentin Physical Exam Const: COMMON NORMALS: no acute distress and patient oriented x3 Resp: COMMON NORMALS: normal respiratory effort, No retractions, No use of accessory muscles and clear to auscultation bilaterally AUSCULTATION: clear to auscultation bilaterally Cardio: COMMON NORMALS: regular rate, regular rhythm, S1 normal heart sound present and S2 normal heart sound present RATE: regular rate RHYTHM: regular rhythm HEART SOUNDS: S1 normal heart sound present and S2 normal heart sound present GI: COMMON NORMALS: Normal to inspection, nondistended, normoactive bowel sounds present and non-tender Extremity: COMMON NORMALS: no pedal edema Neuro: COMMON NORMALS: patient oriented x3 Psych: COMMON NORMALS: mental status grossly normal Urinary Catheter Management: Knox: Cath Placed During This Visit: yes Reason for Continuing Indwelling Catheter: Accurate Measurement of Urinary Output in Critically Ill Patients Urinary Catheter Date of Insertion: 08/20/22 Urinary Catheter Time of Insertion: 19:00 Discharge Data Studies Completed and Pending Completed Studies During Hospitalization Category Date Time Status CT chest abdomen pelvis [[place] [id number] Cat Scan 08/20/22 21:43 Completed ] Urgent CT head wo con* [id number] Stat Cat Scan 08/20/22 16:56 Completed XR chest 1V portable [id number] Stat Exams 08/20/22 19:07 Completed Pending at discharge Category Date Time Status Basic Metabolic Panel AM LABS Lab 08/23/22 04:00 Ordered Basic Metabolic Panel AM LABS Lab 08/24/22 04:00 Ordered Blood Culture Routine Lab 08/20/22 22:46 Results C Reactive Protein AM LABS Lab 08/22/22 04:00 Ordered C Reactive Protein AM LABS Lab 08/23/22 04:00 Ordered C Reactive Protein AM LABS Lab 08/24/22 04:00 Ordered Complete Blood Count w/Auto AM LABS Lab 08/23/22 04:00 Ordered Complete Blood Count w/Auto AM LABS Lab 08/24/22 04:00 Ordered HIV 1/2 Antigen/AB 4th Gen Routine Lab 08/21/22 14:08 Received Procalcitonin AM LABS Lab 08/23/22 04:00 Ordered Procalcitonin AM LABS Lab 08/24/22 04:00 Ordered Sputum Culture and Gram Stain Stat Lab 08/20/22 21:43 Uncollected Radiology Impressions Head CT 08/20/22 16:56 IMPRESSION: 1. No acute intracranial abnormality. 2. Mild age-related changes. Chest X-Ray 08/20/22 19:07 IMPRESSION: Mildly decreased lung volumes with mild accentuation of the pulmonary vascularity. No confluent infiltrates in the lungs. Chest/Abdomen/Pelvis CT 08/20/22 21:43 IMPRESSION: 1. Hazy areas of [id number] mid to lower lung atelectasis or developing pneumonia. Recommend three-month follow-up. 2. Apparent previous RUL lobectomy, correlate with surgical history. The nodule seen in the right upper lobe on 09/21/2018 is now absent. 3. A few chronic findings above. IMPRESSION: 1. No high-grade small bowel obstruction, abscess or free air. 2. Knox catheter present with concern for cystitis. 3. Fecal filled colon. Low-grade colitis possible on this unenhanced examination. 4. Kidney stones and chronic pancreatitis. Other chronic findings above. COMMENTS: Consistent with the [employer]'s Incidental Findings Committee white paper (J Am Antonino Radiol 2018): Any incidental renal lesion less than 1 cm or classified as too small to characterize, or any incidental cystic renal lesion characterized as simple-appearing, is likely benign. No follow-up imaging is recommended for these lesions per consensus recommendations based on imaging criteria. Laboratory Results WBC 3.4 10^3/uL (4.0-10.0) L 08/22/22 02:08 RBC 4.30 10^6/uL (4.1-5.3) 08/22/22 02:08 Hgb 11.8 g/dL (11.7-16.6) 08/22/22 02:08 Hct 36.4 % (42.0-52.0) L 08/22/22 02:08 MCV 84.7 fl (80-94) 08/22/22 02:08 MCH 27.4 pg (28.0-34.0) L 08/22/22 02:08 MCHC 32.4 g/dL (30.0-36.0) 08/22/22 02:08 RDW 12.4 % (12.1-15.1) 08/22/22 02:08 Plt Count 238 10^3/cmm (130-400) 08/22/22 02:08 MPV 10.3 fL (7.4-10.4) 08/22/22 02:08 Neut % (Auto) 50.8 % 08/22/22 02:08 Lymph % (Auto) 37.0 % 08/22/22 02:08 [place] % (Auto) 8.0 % 08/22/22 02:08 Eos % (Auto) 2.4 % 08/22/22 02:08 Baso % (Auto) 1.5 % 08/22/22 02:08 Neut # (Auto) 1.72 10^3/uL (1.8-7.7) L 08/22/22 02:08 Lymph # (Auto) 1.3 10^3/uL (0.8-4.8) 08/22/22 02:08 [place] # (Auto) 0.3 10^3/uL (0.2-0.9) 08/22/22 02:08 Eos # (Auto) 0.1 10^3/uL (0.0-0.8) 08/22/22 02:08 Baso # (Auto) 0.1 10^3/uL (0.0-0.1) 08/22/22 02:08 Nucleated RBC % (auto) 0 % 08/22/22 02:08 Nucleated RBCs # 0.0 /100WBC 08/22/22 02:08 ESR 24 mm/hr (0-10) H 08/21/22 01:48 Sodium 136 mmol/L (136-145) 08/22/22 02:08 Potassium 4.1 mmol/L (3.5-5.1) 08/22/22 02:08 Chloride 102 mmol/L (98-107) 08/22/22 02:08 Carbon Dioxide 23 mmol/L (22-29) 08/22/22 02:08 Anion Gap 15.1 (5-19) 08/22/22 02:08 BUN 7 mg/dL (6-20) 08/22/22 02:08 Creatinine 1.1 mg/dL (0.7-1.2) 08/22/22 02:08 GFR Calculation 70.9 mL/min (90-130) L 08/22/22 02:08 Glucose 281 mg/dL (65-115) H 08/22/22 02:08 POC Glucose 238 mg/dL (70-110) H 08/22/22 08:08 Estimat Average Glucose 280 08/20/22 17:09 Hemoglobin A1c 11.4 % (4.0-6.0) H 08/20/22 17:09 Calculated Osmolality 290 mOsm/kg (285-295) 08/22/22 02:08 Lactic Acid 0.7 mmol/L (0.5-2.2) 08/20/22 22:46 Calcium 8.0 mg/dL (8.5-10.5) L 08/22/22 02:08 Phosphorus 3.1 mg/dL (2.5-4.5) 08/21/22 01:48 Magnesium 2.5 mg/dL (1.7-2.3) H 08/21/22 01:48 Total Bilirubin 0.2 mg/dL (0.15-1.2) 08/21/22 01:48 AST 29 U/L (0-40) 08/21/22 01:48 ALT 22 U/L (0-41) 08/21/22 01:48 Alkaline Phosphatase 115 U/L (40-130) 08/21/22 01:48 Total Protein 6.1 g/dL (6.6-8.7) L 08/21/22 01:48 Albumin 3.1 g/dL (3.5-5.2) L 08/21/22 01:48 Globulin 3.0 g/dL (1.3-4.6) 08/21/22 01:48 Triglycerides 31 mg/dL (0-150) 08/20/22 17:09 Cholesterol 146 mg/dL (0-200) 08/20/22 17:09 LDL Cholesterol, Calc 79 mg/dL (50-129) 08/20/22 17:09 HDL Cholesterol 61 mg/dL (60-100) 08/20/22 17:09 LDL/HDL Ratio 1.30 RATIO (0.00-3.22) 08/20/22 17:09 Cholesterol/HDL Ratio 2.39 mg/dL (1.0-5.00) 08/20/22 17:09 Lipase 8 U/L (13-60) L 08/21/22 01:48 Procalcitonin 0.76 ng/mL (0-0.5) H 08/22/22 02:08 TSH 2.01 uIU/mL (0.27-4.20) 08/20/22 17:09 Prolactin 7.58 ng/mL (4.0-15.2) 08/20/22 17:09 Random Cortisol 8.36 ug/dL (2.47-19.5) 08/21/22 01:48 Urine Color Yellow (Yellow) 08/20/22 21:27 Urine Appearance Clear (CLEAR) 08/20/22 21:27 Urine pH 6.5 (5-7) 08/20/22 21:27 Ur Specific [place] 1.015 (1.005-1.030) 08/20/22 21:27 Urine Protein Neg (Negative) 08/20/22 21:27 Urine Glucose (UA) Norm (Normal) 08/20/22 21:27 Urine Ketones Negative (Negative) 08/20/22 21:27 Urine Blood Neg (Negative) 08/20/22 21:27 Urine Nitrate Negative (Negative) 08/20/22 21:27 Urine Bilirubin Neg (Negative) 08/20/22 21:27 Urine Urobilinogen Norm mg/dL (Negative) 08/20/22 21:27 Ur Leukocyte Esterase Negative (Negative) 08/20/22 21:27 Vancomycin Trough 18.8 ug/mL (10-15) H 08/21/22 21:32 Urine Opiates Screen Negative ng/mL (Negative) 08/20/22 21:27 Ur Barbiturates Screen Negative ng/mL (Negative) 08/20/22 21:27 Ur Phencyclidine Scrn Negative ng/mL (Negative) 08/20/22 21:27 Ur Amphetamines Screen Positive ng/mL (Negative) H 08/20/22 21:27 U Benzodiazepines Scrn Positive ng/mL (Negative) H 08/20/22 21:27 Urine Cocaine Screen Negative ng/mL (Negative) 08/20/22 21:27 U Marijuana (THC) Screen Negative ng/mL (Negative) 08/20/22 21:27 Hepatitis A IgM Ab Non-reactive (Nonreactive) 08/20/22 17:09 Hep Bs Antigen Non-reactive (Nonreactive) 08/20/22 17:09 Hep B Core IgM Ab Non-reactive (Nonreactive) 08/20/22 17:09 Hepatitis C Antibody Non-reactive (Nonreactive) 08/20/22 17:09 HIV 1&2 Ab & HIV 1 Ag Non-reactive (Non-Reactiv) 08/20/22 17:09 HIV 1&2 Antibody Non-reactive (Non-Reactiv) 08/20/22 17:09 Vitals Last Vital Signs Temp 97.5 F L 08/22/22 07:35 Pulse 77 08/22/22 10:30 Resp 18 08/22/22 10:30 BP 152/97 08/22/22 10:30 Pulse Ox 100 08/22/22 10:30 O2 Del Method Room Air 08/22/22 07:35 Discharge Plan Discharge Patient Disposition: Home Condition: Stable Prescriptions: New aspirin 81 mg capsule 81 mg PO DAILY 30 Days Qty: 30 0RF amoxicillin-pot clavulanate 875-125 mg tablet 1 tab PO BID 5 Days Qty: 10 0RF Continued gabapentin 300 mg Capsule 300 mg PO TID ascorbic acid (vitamin C) 500 mg Tablet 1,000 mg PO DAILY ferrous sulfate [Iron (ferrous sulfate)] 325 mg (65 mg iron) Tablet 325 mg PO DAILY glucosamine-chondroitin [Osteo Bi-Flex] 250-200 mg Tablet 2 tab PO BID Rx Instructions: give after food/meal cinnamon bark [Cinnamon] 500 mg Capsule 1,000 mg PO DAILY glucosamine sulfate 2KCl [Glucosamine Relief] 1,000 mg Tablet 1,000 mg PO DAILY Rx Instructions: administer with meals Healthy Feet And Nerves 1 caplet PO BID Changed insulin glargine [Lantus U-100 Insulin] 100 unit/mL Solution 10 unit SUBCUT QAM 30 Days Qty: 10 0RF Rx Instructions: 10 units subcutaneously; insulin aspart U-100 [Novolog FlexPen U-100 Insulin] 100 unit/mL (3 mL) Insulin Pen See Rx Instructions .ROUTE .COMPLEX Qty: 15 0RF Rx Instructions: inject TID, after meals, based on sliding scale provided Discontinued aspirin 325 mg Tablet 650 mg PO BID Discharge Orders: Discharge Order (Routine); Ordered 08/22/22 Ordered By: Lucio Davila Referrals: Laurie Frazier FNP [Primary Care Provider] - Shari Castro MD [Physician] - 2 weeks Discharge Diet: Cardiac Discharge Activity: Resume usual activity Patient Instructions: Opioid Safety Activity Restrictions/Additional Instructions: -Please monitor your blood sugars closely -Monitor your blood sugars 3 times daily as after meals -Please record your blood sugars, and a blood sugar log -For your NovoLog -Please inject blood sugar after meals based on sliding scale provided -Do not inject insulin if you do not eat as hypoglycemia kills -This is a NovoLog sliding scale -Insulin sliding ?fingerstick? Insulin ?141-180?0 units/sq 181-220?2 units/sq ?221-260?4 units/sq ?261-300 6 units/sq ?301-350?8 units/sq ?351-400 10 units/sq ?401-450?12 units/sq >450? 14units/sq -If your blood sugar is greater than 500 go to the emergency room -If your blood sugar is less than 60 or at anytime you feel lightheaded or dizzy or diaphoretic or have chest palpitations check your blood sugar, and eat a hard candy or drink orange juice and go immediately to the emergency room -Remember hypoglycemia kills, so if his blood sugar is less than 60 we have to increase it by taking in a sugary meal such as a hard candy or orange juice and go to the emergency room -If you have any questions please call us where here to help -I have discharged on Lantus 10 units in the morning -For your pneumonia please take Augmentin Discharge Attestations Time Spent in Discharge Care*: greater than 30 min Quality Metrics Clinical Quality Measures [ No reported AMI, CVA or VTE this stay] Coding Level of Care Code 72944 Total time (in minutes) for Discharge: 40 Diagnoses Methamphetamine abuse F15.10 Pneumonia J18.9 Hypoglycemia due to insulin E16.0; T38.3X5A Acute alteration in mental status R41.82 Seizure R56.9 Hypomagnesemia E83.42 Insulin dependent diabetes mellitus Unresponsive episode R41.89 History of drug abuse F19.11
[2022-08-22 11:42] LABS: Glucose Point of Care 105 mg/dL (70-110)
[2022-08-22 13:34] LABS: Glucose Point of Care 86 mg/dL (70-110)
--- NOTE | 2022-08-22 14:14 | PC.NURSE ---
at 1200, patient walked approximately 100 feet. He was weak, unsteady, and required a walker. Patient states that this is his baseline, and he feels safe going home since he has a walker there and many people to help.
--- NOTE | 2022-08-22 14:14 | PC.NURSE ---
Patient discharged. IV removed. Activity, upcoming appointment, diet, and medication instructions provided to the patient. Patient's girldfirend, Toño Johnson, picked up the patient. She states that his current level of activity is his baseline.
--- NOTE | 2022-08-22 14:25 | PC.NURSE ---
During discharge teaching, nurse learned that patient does not check his blood sugar at home because he has never owned a glucometer. Nurse alerted Dr moore and an order glucometer and testing strips were sent over to his pharmacy.
[2022-08-23 07:49] LABS: HIV AG/AB 4th Generation NON-REACTIVE (NON-REACTIVE)
== END 2022-08-22 14:25 | disposition home or self-care (01) | DRG 637 ==
LOC: ER 21:04 → ICU 21:25
PROVIDERS: Admitting Provider Internal Medicine; Emergency Provider Emergency Medicine; PCP Nurse Practitioner; Visit Provider Family Medicine
DX: E11.649 Type 2 diabetes mellitus with hypoglycemia without coma (principal); J18.9 Pneumonia, unspecified organism; J98.11 Atelectasis; T38.3X5A Adverse effect of insulin and oral hypoglycemic [antidiabetic] drugs, initial encounter; E83.42 Hypomagnesemia; R68.0 Hypothermia, not associated with low environmental temperature; R56.9 Unspecified convulsions; R41.82 Altered mental status, unspecified; F15.10 Other stimulant abuse, uncomplicated; E11.42 Type 2 diabetes mellitus with diabetic polyneuropathy; Z90.2 Acquired absence of lung [part of]; Z85.118 Personal history of other malignant neoplasm of bronchus and lung; Z79.4 Long term (current) use of insulin; Z59.48 Other specified lack of adequate food; Z59.82 Transportation insecurity
CPT/HCPCS: 36415; 36416; 51702; 70450; 71045; 71250; 74176; 80048; 80053; 80061; 80074; 80202; 80306; 81003; 82533; 82962; 83036; 83605; 83690; 83735; 84100; 84145; 84146; 84443; 85025; 85651; 86140; 87040; 87389; 87806; 93005; 96365; 96367; 96372; 96375; 96376; 99285; J1644; J1815; J1885; J2543; J3370; J3475; J7030; J7050

== ENCOUNTER → 2022-09-18 17:40 | Outpatient (BNVA) | payer OTHER, SELFPAY | PROVIDERS: PCP Nurse Practitioner; Visit Provider Internal Medicine Pulmonary Disease | DX: J30.2 Other seasonal allergic rhinitis (principal); R06.02 Shortness of breath | CPT/HCPCS: 36415; 82785; 86003; 99204 ==

== ENCOUNTER 2022-10-11 17:21 | Inpatient (IN) | payer OTHER, SELFPAY ==
[2022-10-11] VITALS (53 sets, daily range): BP systolic 92–129; BP diastolic 54–84; PULSE 66–81; RESP 7–26; TEMP 36.6; O2SAT 91–99; BMI 21.5
[2022-10-11] MEDS: sodium chloride 0.9% 1,000 ML 999 ML IV ×2 (17:38→20:10)
--- NOTE | 2022-10-11 17:42 | ED.C_ITS ---
HPI - Psych General: Chief Complaint: Psychiatric Symptoms Stated Complaint: Hyperglycemia/SI Time Seen by Provider: 10/11/22 17:28 Source: patient Mode of arrival: EMS Limitations: no limitations History of Present Illness: Patient presents to the emergency department today brought by EMS for evaluation treatment of concerns for physical harm. Patient is currently living with his mother after a split from a significant other somewhat recently. Patient states that his mother is upset with him because he was refusing to do work around the house but, EMS indicated that the mother was concerned for SI. Patient states that he never said he was going to kill himself but, indicated that he would r ather not be around given his current social situation and, reports a stroke couple months ago requiring him to use a walker for ambulation and continued physical difficulties. Patient is a diabetic. He states yesterday he was sick to his stomach with diarrhea and vomiting. He has generalized abdominal pains today. He has not reported any fevers but states he has not been vomiting today. His mother told EMS that he has not been eating or drinking. He does note he is thirsty today but has not noticed any excessive urination. Patient states his doctor changed his medication around and he does take Lantus and an oral diabetes medication. Patient states he has not been withholding his me dication, fluids, or food in an effort to harm himself. Patient does not have a plan to harm himself but does agree to the statement that he would be okay if he went to bed and never woke up in the morning. EMS informed the medical staff of suspicion for track morales on the arms making IV access difficult. 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 Physical Exam Const: COMMON NORMALS: no acute distress, patient oriented x3 and alert; negative for healthy appearing and negative for well nourished HENMT: COMMON NORMALS: normocephalic, atraumatic, hearing grossly normal bilaterally and moist oral mucous membranes HEAD & SCALP: normocephalic and atraumatic Eye: COMMON NORMALS: Equal, round and reactive pupils present, EOMs intact bilaterally and conjunctivae normal CONJUNCTIVA: Yes conjunctivae normal PUPIL: Yes Equal, round and reactive pupils present Neck/C-Spine: COMMON NORMALS: full ROM and no JVD Lymph: LYMPHATIC: no lymphadenopathy noted Resp: COMMON NORMALS: normal respiratory effort, No retractions, No use of accessory muscles and clear to auscultation bilaterally AUSCULTATION: clear to auscultation bilaterally Cardio: COMMON NORMALS: no JVD, regular rate and regular rhythm RATE: regular rate RHYTHM: regular rhythm : COMMON NORMALS: Yes no CVA tenderness BLADDER/KIDNEY EXAM: Yes no CVA tenderness Back/Pelvis: COMMON NORMALS: no CVA tenderness, no thoracic nor lumbar tenderness and thoraco-lumbar ROM normal Extremity: COMMON NORMALS: normal to inspection, full ROM and capillary refill normal Neuro: COMMON NORMALS: patient oriented x3 SENSORIUM/ORIENTATION: Yes alert Psych: COMMON NORMALS: mental status grossly normal and cooperative APPEARANCE: Yes unkempt ATTITUDE: Yes Withdrawn affect present ACTIVITY/MOTOR BEHAVIOR: Yes appropriate eye contact MOOD & AFFECT: Yes depressed mood, Yes apathetic and Yes Flat affect present Skin: COMMON NORMALS: no rashes or lesions noted GENERAL SKIN EXAM: no rashes or lesions noted Course Vital Signs: Vital signs: Vital Signs Pulse Rate 78 10/11/22 20:33 Respiratory Rate 18 10/11/22 20:33 Blood Pressure 111/74 10/11/22 20:33 Pulse Oximetry 98 10/11/22 20:33 Oxygen Delivery Me thod Room Air 10/11/22 18:15 MDM - Psych Medical Decision Making Patient presented to the emergency department brought by EMS after his mother had called out of concern for self-harm by the patient. Patient states he does not have a plan to harm himself but, does agree that if he were to fall asleep and never wake up he would be okay with that. Patient states he is not trying to harm himself by not taking medications or avoiding p.o. intake. Patient's blood sugar was read high on her glucometer on his arrival. CMP showed blood sugar greater than 1000. Patient was given insulin bolus as well as put on insulin drip. He was also started on fluids. I did reach out and speak with Dr. Manuel with [facility] to make them aware of the patient's condition but, that I would be attempting to admit the patient for hyperglycemia. I then spoke with Dr. Castillo who is admitting the patient to the ICU. He did ask for formal consult by [facility] during the patient's admission to rule out SI. I did call Dr. Manuel back to make him aware of the request for formal consult. We will defer care to the assembly mechanic/hospitalist group at this time for further intervention and treat ment. Differential Diagnosis Likely suicidal ideation, depression and acute anxiety Lab Data 10/11/22 17:40 10/11/22 17:40 Radiology Impressions Chest X-Ray 10/11/22 19:38 IMPRESSION: No acute findings. Laboratory Results WBC 2.8 10^3/uL (4.0-10.0) L 10/11/22 17:40 RBC 3.97 10^6/uL (4.1-5.3) L 10/11/22 17:40 Hgb 10.9 g/dL (11.7-16.6) L 10/11/22 17:40 Hct 33.2 % (42.0-52.0) L 10/11/22 17:40 MCV 83.6 fl (80-94) 10/11/22 17:40 MCH 27.5 pg (28.0-34.0) L 10/11/22 17:40 MCHC 32.8 g/dL (30.0-36.0) 10/11/22 17:40 RDW 13.3 % (12.1-15.1) 10/11/22 17:40 Plt Count 208 10^3/cmm (130-400) 10/11/22 17:40 MPV 10.9 fL (7.4-10.4) H 10/11/22 17:40 Neut % (Auto) 62.0 % 10/11/22 17:40 Lymph % (Auto) 27.1 % 10/11/22 17:40 [place] % (Auto) 6.3 % 10/11/22 17:40 Eos % (Auto) 3.2 % 10/11/22 17:40 Baso % (Auto) 1.4 % 10/11/22 17:40 Neut # (Auto) 1.76 10^3/uL (1.8-7.7) L 10/11/22 17:40 Lymph # (Auto) 0.8 10^3/uL (0.8-4.8) 10/11/22 17:40 [place] # (Auto) 0.2 10^3/uL (0.2-0.9) 10/11/22 17:40 Eos # (Auto) 0.1 10^3/uL (0.0-0.8) 10/11/22 17:40 Baso # (Auto) 0.0 10^3/uL (0.0-0.1) 10/11/22 17:40 Nucleated RBC % (auto) 0 % 10/11/22 17:40 Nucleated RBCs # 0.0 /100WBC 10/11/22 17:40 Sodium 126 mmol/L (136-145) L 10/11/22 17:40 Potassium 3.8 mmol/L (3.5-5.1) 10/11/22 17:40 Chloride 92 mmol/L (98-107) L 10/11/22 17:40 Carbon Dioxide 20 mmol/L (22-29) L 10/11/22 17:40 Anion Gap 17.8 (5-19) 10/11/22 17:40 BUN 10 mg/dL (6-20) 10/11/22 17:40 Creatinine 1.3 mg/dL (0.7-1.2) H 10/11/22 17:40 GFR Calculation 58.4 mL/min (90-130) L 10/11/22 17:40 Glucose 1020 mg/dL (65-115) H* 10/11/22 17:40 Calculated Osmolality 312 mOsm/kg (285-295) H 10/11/22 17:40 Calcium 7.8 mg/dL (8.5-10.5) L 10/11/22 17:40 Total Bilirubin 0.2 mg/dL (0.15-1.2) 10/11/22 17:40 AST 28 U/L (0-40) 10/11/22 17:40 ALT 27 U/L (0-41) 10/11/22 17:40 Alkaline Phosphatase 110 U/L (40-130) 10/11/22 17:40 Total Protein 5.7 g/dL (6.6-8.7) L 10/11/22 17:40 Albumin 3.7 g/dL (3.5-5.2) 10/11/22 17:40 Globulin 2.0 g/dL (1.3-4.6) 10/11/22 17:40 Urine Color Light yellow (Yellow) 10/11/22 17:41 Urine Appearance Clear (CLEAR) 10/11/22 17:41 Urine pH 5 (5-7) 10/11/22 17:41 Ur Specific [place] 1.005 (1.005-1.030) 10/11/22 17:41 Urine Protein Neg (Negative) 10/11/22 17:41 Urine Glucose (UA) 4+ (Normal) H 10/11/22 17:41 Urine Ketones Negative (Negative) 10/11/22 17:41 Urine Blood Neg (Negative) 10/11/22 17:41 Urine Nitrate Negative (Negative) 10/11/22 17:41 Urine Bilirubin Neg (Negative) 10/11/22 17:41 Urine Urobilinogen Neg mg/dL (Negative) 10/11/22 17:41 Ur Leukocyte Esterase Negative (Negative) 10/11/22 17:41 Urine Opiates Screen Negative ng/mL (Negative) 10/11/22 17:41 Ur Barbiturates Screen Negative ng/mL (Negative) 10/11/22 17:41 Ur Phencyclidine Scrn Negative ng/mL (Negative) 10/11/22 17:41 Ur Amphetamines Screen Negative ng/mL (Negative) 10/11/22 17:41 U Benzodiazepines Scrn Negative ng/mL (Negative) 10/11/22 17:41 Urine Cocaine Screen Negative ng/mL (Negative) 10/11/22 17:41 U Marijuana (THC) Screen Negative ng/mL (Negative) 10/11/22 17:41 Ethyl Alcohol < 10 mg/dL (0-10) 10/11/22 17:40 Serum Ketones Negative (Negative) 10/11/22 17:40 Discharge Plan Discharge Patient Disposition: Admitted As Inpatient Admit Provider: Mickey Almonte Clinical Impression: Acute hyperglycemia Condition: Stable Discharge Diet: Diabetic Coding Level of Care Code ED [facility] [employer] [place] [employer]
[2022-10-11 17:57] LABS: Add Urine Microscopic? NO; Charge for UA Resulting for Rev
[2022-10-11 17:58] LABS: Basophils % 1.4 %; Eosinophils # 0.1 10^3/uL (0.0-0.8); Eosinophils % 3.2 %; Hematocrit 33.2 % (42.0-52.0); Hemoglobin 10.9 g/dL (11.7-16.6); Lymphocytes # 0.8 10^3/uL (0.8-4.8); Lymphocytes % 27.1 %; Mean Corpuscular HGB Conc 32.8 g/dL (30.0-36.0); Mean Corpuscular Hemoglobin 27.5 pg (28.0-34.0); Mean Corpuscular Volume 83.6 fl (80-94); Mean Platelet Volume 10.9 fL (7.4-10.4); Monocytes # 0.2 10^3/uL (0.2-0.9); Monocytes % 6.3 %; Neutrophils # 1.76 10^3/uL (1.8-7.7); Nucleated Red Blood Cells % 0 %; Platelet Count 208 10^3/cmm (130-400); Red Blood Count 3.97 10^6/uL (4.1-5.3); Red Cell Distribution Width 13.3 % (12.1-15.1); White Blood Count 2.8 10^3/uL (4.0-10.0)
[2022-10-11 18:03] LABS: Specific Gravity, Urine 1.005 (1.005-1.030); Urine Appearance Clear (CLEAR); Urine Color Light yellow (Yellow); pH Urine 5 (5-7)
[2022-10-11 18:04] LABS: Bilirubin Urine Neg (Negative); Blood Urine Neg (Negative); Glucose Urine UA 4+ (Normal); Ketones Urine Negative (Negative); Leukocyte Esterase Urine Negative (Negative); Nitrate Urine Negative (Negative); Protein Urine Neg (Negative); Urobilinogen Urine Neg (Negative)
[2022-10-11 18:14] LABS: Amphetamines Screen Urine Negative (Negative); Barbiturates Screen Urine Negative (Negative); Benzodiazepines Screen Urine Negative (Negative); Cocaine Screen Urine Negative (Negative); Opiate Screen Urine Negative (Negative); PCP Screen Urine Negative (Negative); THC Screen Urine Negative (Negative)
[2022-10-11] MEDS: insulin regular-human 100 units/1 mL 10 UNIT IVP (18:16)
[2022-10-11 18:17] LABS: Alanine Aminotransferase 27 U/L (0-41); Albumin Level 3.7 g/dL (3.5-5.2); Alkaline Phosphatase 110 U/L (40-130); Anion Gap 17.8 (5-19); Aspartate Amino Transferase 28 U/L (0-40); Blood Urea Nitrogen 10 mg/dL (6-20); Calcium 7.8 mg/dL (8.5-10.5); Carbon Dioxide 20 mmol/L (22-29); Chloride 92 mmol/L (98-107); Glomerular Filtration Rate 58.4 mL/min (90-130); Potassium 3.8 mmol/L (3.5-5.1); Sodium 126 mmol/L (136-145); Total Bilirubin 0.2 mg/dL (0.15-1.2); Total Protein 5.7 g/dL (6.6-8.7)
[2022-10-11 18:23] LABS: Ketone (Acetest) Serum Negative (Negative)
[2022-10-11 18:26] LABS: Osmolality Calculated 312 mOsm/kg (285-295)
[2022-10-11] MEDS: insulin regular-human 250 UNIT in sodium chloride 0.9% 250 ML 11.7 UNIT IV (18:37)
[2022-10-11 18:40] LABS: Glucose 1020 mg/dL (65-115)
[2022-10-11 18:41] LABS: Alcohol Level < 10 mg/dL (0-10)
--- NOTE | 2022-10-11 19:38 | XRR_ITS ---
PROCEDURE INFORMATION: Exam: XR Chest Exam date and time: 10/11/2022 7:43 PM Age: 52 years old Clinical indication: Shortness of breath; Additional info: SOB TECHNIQUE: Imaging protocol: Radiologic exam of the chest. Views: 1 view. COMPARISON: CT chest abdpel [id number] 08/20/2022 10:17 PM FINDINGS: Lungs: Unremarkable. No consolidation. Pleural spaces: Unremarkable. No pleural effusion. No pneumothorax. Heart/Mediastinum: Unremarkable. No cardiomegaly. Bones/joints: Unremarkable. XR/XR chest 1V portable [id number] IMPRESSION: No acute findings.
--- NOTE | 2022-10-11 19:44 | P.HP_ITS ---
Providers/Chief Complaint Primary Care Provider: JOSE GUADALUPE Murry Chief Complaint: Hyperglycemia/SI History of Present Illness Suhas Manuel is a 52 year old male with past medical history of type 2 diabetes mellitus, insulin-dependent, COPD, lung cancer post lobectomy, depression who was last in the hospital on 08/22 when he was admitted for hypoglycemia, pneumonia and for amphetamine abuse. He was sent in today via EMS by his mother with concerns for agitation towards people, stopping his medications for last couple of weeks after a social stressor and suicidal ideations. In the ER, blood work showed stable leukopenia with white neuro 2.8, hemoglobin of 10.9, sodium 126, creatinine 1.3, blood glucose of more than 1000, lactate of 5.4, anion gap of 14 with UA negative for UTI and drug screen negative. Patient declined any active suicidal ideation but did state that he does not take medication because he would rather . He denied having any active plans of suicidal or homicidal ideation. He himself denied any nausea vomiting, headache, dizziness, chest pain, diarrhea, difficulty in breathing or cough. Patient is awake and alert but slightly drowsy. For now patient had received 10 units of IV insulin bolus and started on insulin sliding scale. I had requested IV fluid bolus of 2 L and was asked for a repeat BMP in 2 hours. Review of Systems General: Reports: 10 or more systems reviewed and unremarkable except in HPI and below Const: Denies: fever(s), chills, body aches, change in appetite, change in weight, malaise, night sweats, diaphoresis, change in sleep pattern, daytime sleepiness or snoring Eyes: Denies: change in vision, blurry vision, photophobia, eye discomfort or eye discharge ENMT: Denies: throat pain, enlarged tonsils, hoarseness, mouth pain, oral sores, dry mouth, tinnitus, nasal congestion or post nasal drip Card: Denies: chest pain, palpitations, irregular heart rhythm, edema, swelling of feet/ankles, lightheadedness, syncope, pre-syncope, dyspnea on exertion, orthopnea, leg pain with exertion or acrocyanosis Resp: Denies: dyspnea, productive cough, non-productive cough, wheezing, stridor, pain on inspiration, change in phlegm color, hemoptysis or chest congestion GI: Denies: abdominal pain, nausea, vomiting, hematemesis, coffee ground emesis, dysphagia, heartburn, diarrhea, constipation, bloating, GI cramping, change in bowel habits, pain on defecation, hematochezia or melena : Denies: flank pain, difficulty urinating, dysuria, urinary frequency, urinary urgency, urinary hesitancy, urinary dribbling, difficulty starting urination, change in urine stream, nocturia or hematuria Musc: Denies: neck pain, back pain, extremity pain, joint pain, joint swelling, joint redness, joint stiffness or limited range of motion Neuro: Denies: headache(s), numbness in extremities, weakness in extremities, sensory changes, lack of coordination, difficulty walking, frequent falls, dizziness, vertigo, confusion, Slurred speech present, difficulty communicating thoughts or seizure-like activity Psych: Denies: anxiety, depression, mood swings, panic attacks, hopelessness or irritability Endo: Denies: polyuria, polydipsia, tired all the time, cold intolerance, excessive sweating, flushing or heat intolerance Oswald/Lymph: Denies: easy bruising or easy bleeding All/Imm: Denies: tongue swelling, facial swelling or acute wheezing Medications/Allergies Home Medications Medication Instructions Recorded Confirmed Last Taken Type albuterol sulfate 90 mcg/actuation 1 inh inhalation QID PRN shortness 09/18/22 10/12/22 Unknown Rx aerosol inhaler (Ventolin HFA) of breath or wheezing #8.5 grams ferrous gluconate 324 mg (36 mg 324 mg PO DAILY 10/12/22 10/12/22 Unknown History iron) tablet insulin glargine 100 unit/mL 6 unit SUBCUT QAM 10/12/22 10/12/22 Unknown History subcutaneous solution (Lantus U-100 Insulin) metformin 500 mg tablet,extended 1,000 mg PO BID 10/12/22 10/12/22 Unknown History release 24 hr rosuvastatin 5 mg tablet 5 mg PO DAILY 10/12/22 10/12/22 Unknown History Allergies Allergy/AdvReac Type Severity Reaction Status Date / Time No Known Allergies Allergy Verified 09/25/22 07:46 PFSH Acute PFSH: Medical History (Updated 10/12/22 @ 12:19 by Mickey Almonte MD) Asthma Depression Insulin dependent diabetes mellitus Leukopenia Lung cancer Surgical History History of pneumonectomy Family History Other Diabetes Social History Smoking and tobacco status: never smoked Quit status (tobacco): has quit using tobacco Year quit tobacco: 2007 Former quit date comment: 1.5 X 11 years Alcohol intake: never Substance/Drug Use: never Lives independently: Yes Household members: spouse Marital status: 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 Vitals/I&O/Wt Last Vital Signs Pulse 71 10/11/22 18:35 Resp 18 10/11/22 18:35 BP 115/84 10/11/22 18:35 Pulse Ox 99 10/11/22 18:35 O2 Del Method Room Air 10/11/22 18:15 10/11/22 10/11/22 10/11/22 06:59 14:59 22:59 Intake Total 1001.755 / 1001.755 Balance 1001.755 / 1001.755 Weight last 48 hrs Weight 68.039 kg Physical Exam Narrative: General: No acute distress, AO x3, drowsy, dehydrated HEENT: PERRLA, pupils bilaterally equal and reactive Chest: Normal vesicular breath sounds, no added sounds, equal good air entry bilaterally CVS: S1-S2 regular, no murmurs, no tachycardia, no gallops, no rubs Abdomen: Soft, nontender, no organomegaly, bowel sounds present Neuro: No focal deficits, no facial deformity, AO x3, power 5/5 in all limbs Data 10/12/22 04:51 10/12/22 08:20 A&P Assessment and plan (1) Acute hyperglycemia: Without DKA. Most likely in setting of noncompliance with medication. IV fluid bolus of 2 L followed by half NS with 20 mg of potassium at 100 cc/h. Repeat BMP every 4 hours. For now continue with insulin drip. Keep potassium over 4. Replete 80 mg of IV potassium. For now keep patient NPO. Once blood glucose better and patient off insulin drip can start on carb consistent diet. Appreciate recent A1c of 11.4. (2) Pseudohyponatremia: Most likely in setting of severe hyperglycemia. Corrected glucose high up to 142. Half NS as above. Monitor BMP every 4 hours. (3) BIJU (acute kidney injury): Most likely in setting of dehydration and acute hyperglycemia. IV fluid as above. Medical reconciliation done for nephrotoxic drugs. (4) Leukopenia: Chronic. As low as 1.7 in past. No signs of infection. Monitor daily for now. (5) Hypokalemia: Replete with 80 mEq of potassium as above. BMP every 4 hours. Keep potassium over 4. (6) Suicidal ideation: 96-hour hold. Neuropsych consulted from ER. Can transfer to Neuropsych Unit once stable from medical point of view. Will restart home dose of sertraline once able to take oral. Sitter. (7) Depression: Plan Full code. NPO. Protonix OPD prophylaxis Lovenox for DVT prophylaxis. Attestations Medical Necessity Statement*: Admission for more than 2 midnights for management of suicidal ideation, 96-hour hold in a patient who was found to have acute hyperglycemia with blood glucose of more than thousand, acute kidney injury Coding Level of Care Code Critical Care >/= 30 minutes Critical care time (in minutes): 60 The high probability of a clinically significant, sudden or life threatening deterioration, as referenced in this documentation, required my full and direct attention, intervention and personal management. The critical care time shown is in addition to time spent performing any reported separately billable procedures and includes the following: [x] Data and vital sign review and interpretation [x ] Patient assessment, examination and intervention [x] Medication orders and ma nagement [x] Patient/Family updates as able [x] Care Coordination and Documentation. Diagnoses Acute hyperglycemia R73.9 Pseudohyponatremia R79.89 BIJU (acute kidney injury) N17.9 Leukopenia D72.819 Hypokalemia E87.6 Suicidal ideation R45.851 Depression F32.A
[2022-10-11] MEDS: lidocaine 1% 5 ML in potassium chloride premix 100 ML 26.25 ML IV (20:11)
[2022-10-11 20:49] LABS: Lactic Sepsis W/Reflex 3.4 mmol/L (0.5-2.2)
[2022-10-11 20:53] LABS: Anion Gap 16.8 (5-19); Blood Urea Nitrogen 9 mg/dL (6-20); Calcium 8.5 mg/dL (8.5-10.5); Carbon Dioxide 22 mmol/L (22-29); Chloride 104 mmol/L (98-107); Glomerular Filtration Rate 70.9 mL/min (90-130); Glucose 291 mg/dL (65-115); Osmolality Calculated 299 mOsm/kg (285-295); Sodium 140 mmol/L (136-145)
[2022-10-11 20:56] LABS: Glucose Point of Care 202 mg/dL (70-110)
[2022-10-11 20:57] LABS: Potassium 2.8 mmol/L (3.5-5.1)
[2022-10-11 21:00] LABS: Procalcitonin 0.08 ng/mL (0-0.5)
[2022-10-11] MEDS: sodium chlor 0.9% + KCl 20 mEq 20 MEQ/1,000 ML BAG 100 MEQ IV (21:01)
[2022-10-11] MEDS: enoxaparin 40 mg/0.4 mL Syringe SUBCUT (21:06)
[2022-10-11] MEDS: pantoprazole 40 mg SDV IVP (21:06)
[2022-10-11] MEDS: potassium chloride ER 20 mEq Tablet 80 MEQ PO (21:30)
[2022-10-11] MEDS: sodium chlor 0.45% +KCl 20 mEq 20 MEQ/1,000 ML BAG 100 MEQ IV (21:30)
[2022-10-11 22:13] LABS: Reflex Lactate Order REFLEX LACTIC ORDERD
[2022-10-11 22:57] LABS: Lactic Acid level (Lactate) 5.4 mmol/L (0.5-2.2)
[2022-10-11 23:06] LABS: Iron 44 ug/dL (59-158); Percent Saturation 19.7 % (20-50); Total Iron Binding Capacity 223 mcg/dl; Unsaturated Iron Binding 179 ug/dL (112-347)
--- NOTE | 2022-10-11 23:19 | PC.NURSE ---
96 Hour Hold Patient Rights have been read to the patient and a copy of the same was given to him.
[2022-10-11 23:20] LABS: Vitamin B12 1626 pg/mL (232-1245)
[2022-10-12] VITALS (67 sets, daily range): BP systolic 96–154; BP diastolic 59–112; PULSE 58–75; RESP 0–22; TEMP 36.1–36.7; O2SAT 85–100
[2022-10-12 00:03] LABS: Anion Gap 13.9 (5-19); Blood Urea Nitrogen 10 mg/dL (6-20); Calcium 8.2 mg/dL (8.5-10.5); Carbon Dioxide 23 mmol/L (22-29); Chloride 106 mmol/L (98-107); Glomerular Filtration Rate 102.3 mL/min (90-130); Glucose 75 mg/dL (65-115); Osmolality Calculated 286 mOsm/kg (285-295); Potassium 3.9 mmol/L (3.5-5.1); Sodium 139 mmol/L (136-145)
[2022-10-12] MEDS: lidocaine 1% 5 ML in potassium chloride premix 100 ML 26.25 ML IV (00:26)
[2022-10-12] MEDS: ipratropium-albuterol 3 mL Neb INHALATION ×4 (01:45→21:08)
[2022-10-12 05:32] LABS: Basophils # 0.1 10^3/uL (0.0-0.1); Basophils % 1.9 %; Eosinophils # 0.1 10^3/uL (0.0-0.8); Eosinophils % 2.7 %; Hematocrit 31.6 % (42.0-52.0); Hemoglobin 10.2 g/dL (11.7-16.6); Lymphocytes # 1.4 10^3/uL (0.8-4.8); Lymphocytes % 38.5 %; Mean Corpuscular HGB Conc 32.3 g/dL (30.0-36.0); Mean Corpuscular Hemoglobin 27.3 pg (28.0-34.0); Mean Corpuscular Volume 84.5 fl (80-94); Mean Platelet Volume 10.5 fL (7.4-10.4); Monocytes # 0.3 10^3/uL (0.2-0.9); Monocytes % 7.7 %; Neutrophils # 1.78 10^3/uL (1.8-7.7); Neutrophils % 48.9 %; Nucleated Red Blood Cells % 0 %; Platelet Count 215 10^3/cmm (130-400); Red Blood Count 3.74 10^6/uL (4.1-5.3); Red Cell Distribution Width 13.1 % (12.1-15.1); White Blood Count 3.6 10^3/uL (4.0-10.0)
[2022-10-12 05:49] LABS: Alanine Aminotransferase 25 U/L (0-41); Albumin Level 3.1 g/dL (3.5-5.2); Alkaline Phosphatase 94 U/L (40-130); Anion Gap 14.9 (5-19); Aspartate Amino Transferase 27 U/L (0-40); Blood Urea Nitrogen 9 mg/dL (6-20); Calcium 7.9 mg/dL (8.5-10.5); Carbon Dioxide 19 mmol/L (22-29); Chloride 109 mmol/L (98-107); Glomerular Filtration Rate 89.3 mL/min (90-130); Glucose 112 mg/dL (65-115); Magnesium 1.3 mg/dL (1.7-2.3); Osmolality Calculated 285 mOsm/kg (285-295); Phosphorus 2.1 mg/dL (2.5-4.5); Potassium 4.9 mmol/L (3.5-5.1); Sodium 138 mmol/L (136-145); Total Bilirubin 0.2 mg/dL (0.15-1.2); Total Protein 5.1 g/dL (6.6-8.7)
[2022-10-12 06:17] LABS: Folate Level 11.8 ng/mL (4.5-32.2)
[2022-10-12] MEDS: sodium chloride 0.9% 1,000 ML 100 ML IV (06:19)
[2022-10-12] MEDS: magnesium sulfate premix 2 GM/50 ML PIGGYBACK IV (06:19)
[2022-10-12 07:46] LABS: Glucose Point of Care 108 mg/dL (70-110)
[2022-10-12] MEDS: budesonide 0.5 mg/2 mL Neb INHALATION ×2 (07:59→21:08)
[2022-10-12] MEDS: ferrous sulfate EC 325 mg Tablet PO (08:50)
[2022-10-12 08:54] LABS: Anion Gap 11.5 (5-19); Blood Urea Nitrogen 8 mg/dL (6-20); Calcium 7.7 mg/dL (8.5-10.5); Carbon Dioxide 22 mmol/L (22-29); Chloride 108 mmol/L (98-107); Glomerular Filtration Rate 79.1 mL/min (90-130); Glucose 125 mg/dL (65-115); Osmolality Calculated 284 mOsm/kg (285-295); Potassium 4.5 mmol/L (3.5-5.1); Sodium 137 mmol/L (136-145)
[2022-10-12 09:33] LABS: Glucose Point of Care > 600 mg/dL (70-110)
[2022-10-12 09:33] LABS: Glucose Point of Care 427 mg/dL (70-110)
[2022-10-12 11:21] LABS: Lactic Sepsis W/Reflex 2.8 mmol/L (0.5-2.2)
[2022-10-12 11:32] LABS: Glucose Point of Care 195 mg/dL (70-110)
--- NOTE | 2022-10-12 11:35 | PC.NURSE ---
Dr Chris notified of Lactic Acid of 2.8. Ok to transfer to [facility].
[2022-10-12 11:42] LABS: HIV 1 & 2 Antibody Non-Reactive (Non-Reactiv); HIV 1 & 2 Antigen Non-Reactive (Non-Reactiv)
[2022-10-12 11:53] LABS: Hepatitis A Antibody IgM Non-Reactive (Nonreactive); Hepatitis B Core AB, Total Non-Reactive (Nonreactive); Hepatitis B Surface Antigen Non-Reactive (Nonreactive); Hepatitis C Virus Antibody Non-Reactive (Nonreactive)
[2022-10-12] MEDS: insulin lispro 100 unit/1 mL SUBCUT ×2 (12:00→21:23)
[2022-10-12 12:03] LABS: Hepatitis B Surface AB < 3.5 (11.5-1000)
--- NOTE | 2022-10-12 12:18 | PC.NURSE ---
Addendum entered by Jossie Macedo RN 10/12/22 12:43: Pt to transfer after finishing his lunch. Original Note: Report called to [facility]. Report given to ELENA Watts
--- NOTE | 2022-10-12 12:19 | PM.PN ---
Subjective Subjective: No acute events overnight. Overnight blood glucose level had improved to below 200 after which insulin drip was stopped. Patient was transitioned over to normal saline. Potassium has improved. Examination laying comfortably in bed. Wake up to have complete conversation. Blood work appreciated for stable leukopenia of 3.6, stable hemoglobin of 10.2, last BMP showing blood glucose of 125, potassium of 4.5 with a right gap of 11, lactate improving to 2.8 with magnesium of 1.3. Has remained hemodynamically stable and afebrile on room air. Sitter at bedside. Vitals/I&O/Wt Last Vital Signs Temp 97 F L 10/12/22 08:00 Pulse 60 10/12/22 08:07 Resp 11 L 10/12/22 08:00 BP 116/80 10/12/22 08:00 Pulse Ox 100 10/12/22 08:00 O2 Del Method Room Air 10/12/22 08:00 10/11/22 10/12/22 10/12/22 22:59 06:59 14:59 Intake Total 1111.035 / 8984.808 9985.902 / 2956.937 763.333 / 763.333 Output Total 450 / 450 250 / 250 Balance 1111.035 / 1042.347 3228.902 / 2506.937 513.333 / 513.333 Weight last 48 hrs Weight 67.993 kg Weight 64.319 kg Weight 68.039 kg Physical Exam Narrative: General: No acute distress, AO x3, drowsy, dehydrated HEENT: PERRLA, pupils bilaterally equal and reactive Chest: Normal vesicular breath sounds, no added sounds, equal good air entry bilaterally CVS: S1-S2 regular, no murmurs, no tachycardia, no gallops, no rubs Abdomen: Soft, nontender, no organomegaly, bowel sounds present Neuro: No focal deficits, no facial deformity, AO x3, power 5/5 in all limbs Data 10/12/22 04:51 10/12/22 08:20 Micro: Microbiology 10/11/22 20:18 Blood Culture - Preliminary Blood SPECIMEN COLLECTED 10/11/22 20:10 Blood Culture - Preliminary Blood SPECIMEN COLLECTED A&P Assessment and plan (1) Acute hyperglycemia: Continue with insulin sliding scale at mild dose protocol. Lantus 6 units daily. Start on Januvia 100 mg p.o. daily. Stop metformin. Carb consistent diet. Normal saline at 50 cc/h. 500 cc bolus one-time. Restart without DKA. (2) Pseudohyponatremia: Resolved. (3) BIJU (acute kidney injury): Resolved. (4) Leukopenia: Chronic. As low as 1.7 in past. No signs of infection. Monitor daily for now. (5) Hypokalemia: Resolved. (6) Suicidal ideation: 96-hour hold. Neuropsych consulted from ER. Patient is stable enough to be transferred to Neuropsych Unit. (7) Depression: Plan Lactic acidosis: Resolving. Most likely in setting of dehydration and metformin at home. Encourage 1.5 to 2 L of fluid intake daily. Stop metformin on discharge. Patient is stable to be transferred to Neuropsych Unit. Continue on insulin sliding scale at low-dose protocol along with Lantus 6 units daily. Start Januvia 100 mg oral daily. Stop metformin. Restart home atorvastatin, gabapentin 800 mg 3 times daily, iron pills and Zoloft. Full code. Carb consistent diet Protonix OPD prophylaxis Lovenox for DVT prophylaxis. Attestations Medical Necessity Statement*: Requires further hospitalization for suicidal ideation with 96-hour hold as patient requires further treatment at Neuropsych Unit. Diagnoses Acute hyperglycemia R73.9 Pseudohyponatremia R79.89 BIJU (acute kidney injury) N17.9 Leukopenia D72.819 Hypokalemia E87.6 Suicidal ideation R45.851 Depression F32.A
[2022-10-12 12:31] LABS: Reflex Lactate Order REFLEX LACTIC ORDERD
--- NOTE | 2022-10-12 12:35 | PC.NURSE ---
Dr Chris called with NS 500ml bolus order to be given prior to transfer to NPU. [facility] called and notified of delay.
--- NOTE | 2022-10-12 13:35 | PC.NURSE ---
Pt transferred to NPU via W/C with patient access director.
[2022-10-12 13:41] LABS: Lactic Acid level (Lactate) 2.5 mmol/L (0.5-2.2)
--- NOTE | 2022-10-12 14:05 | PC.NURSE ---
Pt's belongings transferred to NPU.
--- NOTE | 2022-10-12 16:29 | PC.NURSE ---
Pt refused to take 100mg Gabapentin, pt stated that it makes him unable to walk.
[2022-10-12 17:24] LABS: Glucose Point of Care 131 mg/dL (70-110)
[2022-10-12 20:45] LABS: Glucose Point of Care 341 mg/dL (70-110)
[2022-10-12] MEDS: insulin glargine 100 units/1 mL 6 UNIT SUBCUT (21:22)
[2022-10-12] MEDS: gabapentin 100 mg Capsule PO (21:22)
[2022-10-13 06:00] VITALS: BP 116/82; PULSE 67; RESP 18; TEMP 36.8; O2SAT 100
[2022-10-13 08:09] LABS: Glucose Point of Care 119 mg/dL (70-110)
[2022-10-13 08:30] LABS: Basophils # 0.1 10^3/uL (0.0-0.1); Basophils % 1.8 %; Eosinophils # 0.2 10^3/uL (0.0-0.8); Hematocrit 37.4 % (42.0-52.0); Hemoglobin 12.3 g/dL (11.7-16.6); Lymphocytes # 1.8 10^3/uL (0.8-4.8); Lymphocytes % 39.6 %; Mean Corpuscular HGB Conc 32.9 g/dL (30.0-36.0); Mean Corpuscular Hemoglobin 27.2 pg (28.0-34.0); Mean Corpuscular Volume 82.7 fl (80-94); Mean Platelet Volume 10.1 fL (7.4-10.4); Monocytes # 0.3 10^3/uL (0.2-0.9); Monocytes % 7.3 %; Neutrophils # 2.11 10^3/uL (1.8-7.7); Neutrophils % 46.9 %; Nucleated Red Blood Cells % 0 %; Platelet Count 252 10^3/cmm (130-400); Red Blood Count 4.52 10^6/uL (4.1-5.3); Red Cell Distribution Width 13.6 % (12.1-15.1); White Blood Count 4.5 10^3/uL (4.0-10.0)
[2022-10-13 09:20] LABS: Alanine Aminotransferase 44 U/L (0-41); Albumin Level 3.7 g/dL (3.5-5.2); Alkaline Phosphatase 125 U/L (40-130); Aspartate Amino Transferase 53 U/L (0-40); Blood Urea Nitrogen 9 mg/dL (6-20); Calcium 8.7 mg/dL (8.5-10.5); Carbon Dioxide 22 mmol/L (22-29); Chloride 105 mmol/L (98-107); Creatinine Clr Calc Pharmacy 106.6206; Globulin 2.4 g/dL (1.3-4.6); Glomerular Filtration Rate 102.3 mL/min (90-130); Glucose 122 mg/dL (65-115); Osmolality Calculated 286 mOsm/kg (285-295); Sodium 138 mmol/L (136-145); Total Bilirubin 0.2 mg/dL (0.15-1.2); Total Protein 6.1 g/dL (6.6-8.7)
[2022-10-13] MEDS: atorvastatin 40 mg Tablet 20 MG PO (09:21)
[2022-10-13] MEDS: gabapentin 100 mg Capsule PO ×2 (09:21→20:36)
[2022-10-13] MEDS: sitagliptin 100 mg Tablet PO (09:21)
[2022-10-13] MEDS: ferrous sulfate EC 325 mg Tablet PO (09:21)
[2022-10-13] MEDS: pantoprazole DR 40 mg Tablet PO (09:21)
[2022-10-13] MEDS: fluticasone nasal spray 16gm Btl 1 SPRAY NASAL ×2 (09:23→18:17)
[2022-10-13 09:31] LABS: Anion Gap 15.2 (5-19); Potassium 4.2 mmol/L (3.5-5.1)
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
[2022-10-13] MEDS: insulin lispro 100 unit/1 mL SUBCUT ×3 (11:36→20:36)
[2022-10-13 11:40] LABS: Glucose Point of Care 345 mg/dL (70-110)
[2022-10-13 12:54] VITALS: BP 127/83; PULSE 84; RESP 18; TEMP 36.7; O2SAT 100
[2022-10-13] MEDS: sertraline 50 mg Tablet PO (12:55)
--- NOTE | 2022-10-13 14:24 | PC.NURSE ---
Patient refused gabapentin. States it makes him feel weak and unstable.
--- NOTE | 2022-10-13 16:30 | PM.PN ---
Subjective Subjective: Patient was seen this morning, he is sitting outside, playing cards, he denies any pain complaints, no polyuria, no polydipsia, no polyphagia, Vitals/I&O/Wt Last Vital Signs Temp 98.1 F 10/13/22 12:54 Pulse 84 10/13/22 12:54 Resp 18 10/13/22 12:54 BP 127/83 10/13/22 12:54 Pulse Ox 100 10/13/22 12:54 O2 Del Method Room Air 10/13/22 14:08 Weight last 48 hrs Weight 67.993 kg Weight 67.993 kg Weight 67.993 kg Weight 64.319 kg Weight 68.039 kg Physical Exam Const: COMMON NORMALS: no acute distress Resp: COMMON NORMALS: normal respiratory effort, No retractions, No use of accessory muscles and clear to auscultation bilaterally AUSCULTATION: clear to auscultation bilaterally Cardio: COMMON NORMALS: regular rate, regular rhythm, S1 normal heart sound present and S2 normal heart sound present RATE: regular rate RHYTHM: regular rhythm HEART SOUNDS: S1 normal heart sound present and S2 normal heart sound present GI: COMMON NORMALS: Normal to inspection, nondistended, normoactive bowel sounds present and non-tender Extremity: COMMON NORMALS: no pedal edema Data 10/13/22 08:21 10/13/22 08:21 Micro: Microbiology 10/11/22 20:18 Blood Culture - Preliminary Blood NEGATIVE TO DATE 10/11/22 20:10 Blood Culture - Preliminary Blood NEGATIVE TO DATE A&P Assessment and plan (1) Acute hyperglycemia: Continue with insulin sliding scale at mild dose protocol. Increase Lantus to 5 units every 12 hours. Start on Januvia 100 mg p.o. daily. Stop metformin. Carb consistent diet. (2) Pseudohyponatremia: Resolved. (3) BIJU (acute kidney injury): Resolved. (4) Leukopenia: Chronic. As low as 1.7 in past. No signs of infection. Monitor daily for now. (5) Hypokalemia: Resolved. (6) Suicidal ideation: 96-hour hold. Neuropsych consulted from ER. Patient is stable enough to be transferred to Neuropsych Unit. (7) Depression: Plan Lactic acidosis: Resolved Most likely in setting of dehydration and metformin at home. Encourage 1.5 to 2 L of fluid intake daily. Stop metformin on discharge. Patient is stable to be transferred to Neuropsych Unit. Continue on insulin sliding scale at low-dose protocol along with Lantus 5 units twice daily start Januvia 100 mg oral daily. Stop metformin. Restart home atorvastatin, gabapentin 800 mg 3 times daily, iron pills and Zoloft. We will continue to peripherally follow Full code. Carb consistent diet Off DVT prophylaxis as he is mobile Plan for today monitor blood sugars, increase Lantus to 5 units every 12 hours Attestations Medical Necessity Statement*: Patient requires hospitalization for hyperglycemia Diagnoses Acute hyperglycemia R73.9 Pseudohyponatremia R79.89 BIJU (acute kidney injury) N17.9 Leukopenia D72.819 Hypokalemia E87.6 Suicidal ideation R45.851 Depression F32.A
[2022-10-13 17:54] LABS: Glucose Point of Care 372 mg/dL (70-110)
[2022-10-13 20:00] VITALS: O2SAT 100
[2022-10-13 20:25] LABS: Glucose Point of Care 237 mg/dL (70-110)
[2022-10-13 20:29] VITALS: BP 106/73; PULSE 74; RESP 18; TEMP 37; O2SAT 98
[2022-10-13] MEDS: insulin glargine 100 units/1 mL 5 UNIT SUBCUT (20:36)
[2022-10-14 06:00] VITALS: BP 118/81; PULSE 72; RESP 16; TEMP 36.7; O2SAT 99
[2022-10-14 08:12] LABS: Glucose Point of Care 410 mg/dL (70-110)
[2022-10-14] MEDS: atorvastatin 40 mg Tablet 20 MG PO (08:14)
[2022-10-14] MEDS: sertraline 50 mg Tablet PO (08:14)
[2022-10-14] MEDS: fluticasone nasal spray 16gm Btl 1 SPRAY NASAL ×2 (08:15→18:45)
[2022-10-14] MEDS: gabapentin 100 mg Capsule PO ×2 (08:15→21:11)
[2022-10-14] MEDS: pantoprazole DR 40 mg Tablet PO (08:15)
[2022-10-14] MEDS: sitagliptin 100 mg Tablet PO (08:15)
[2022-10-14] MEDS: ferrous sulfate EC 325 mg Tablet PO (08:15)
[2022-10-14] MEDS: insulin glargine 100 units/1 mL 5 UNIT SUBCUT ×2 (08:16→21:11)
--- NOTE | 2022-10-14 08:28 | PC.PT ---
PT NOTE;Late entry for 10/13/22 ;Discussed Nursing request to fit patient with walker and Nurse stated that all they needed was a adjustable walker ,as their store-room containing walkers was locked,;provided walker, and she stated no further needs.
[2022-10-14] MEDS: insulin lispro 100 unit/1 mL SUBCUT ×3 (08:50→21:11)
[2022-10-14 12:18] LABS: Glucose Point of Care 72 mg/dL (70-110)
[2022-10-14 14:00] VITALS: BP 125/84; PULSE 125; RESP 16; TEMP 37; O2SAT 98
--- NOTE | 2022-10-14 16:24 | PM.PN ---
Subjective Subjective: Patient was seen in the neuropsychiatric unit, he is ambulating with a wheeled walker, has no complaints no polyuria, no polydipsia, no polyphagia Vitals/I&O/Wt Last Vital Signs Temp 98.6 F 10/14/22 14:00 Pulse 125 H 10/14/22 14:00 Resp 16 10/14/22 14:00 BP 125/84 10/14/22 14:00 Pulse Ox 98 10/14/22 14:00 O2 Del Method Room Air 10/14/22 14:00 Weight last 48 hrs Weight 67.993 kg Weight 67.993 kg Physical Exam Const: COMMON NORMALS: no acute distress and patient oriented x3 Resp: COMMON NORMALS: normal respiratory effort, No retractions, No use of accessory muscles and clear to auscultation bilaterally AUSCULTATION: clear to auscultation bilaterally Cardio: COMMON NORMALS: regular rate, regular rhythm, S1 normal heart sound present and S2 normal heart sound present RATE: regular rate RHYTHM: regular rhythm HEART SOUNDS: S1 normal heart sound present and S2 normal heart sound present GI: COMMON NORMALS: Normal to inspection, nondistended, normoactive bowel sounds present and non-tender Extremity: COMMON NORMALS: no pedal edema Neuro: COMMON NORMALS: patient oriented x3 Psych: COMMON NORMALS: mental status grossly normal Data 10/13/22 08:21 10/13/22 08:21 A&P Assessment and plan (1) Acute hyperglycemia: Continue with insulin sliding scale at mild dose protocol. Continue Lantus to 5 units every 12 hours. Start on Januvia 100 mg p.o. daily. Monitor blood sugars closely Carb consistent diet. (2) Pseudohyponatremia: Resolved. (3) BIJU (acute kidney injury): Resolved. (4) Leukopenia: Chronic. As low as 1.7 in past. No signs of infection. Monitor daily for now. (5) Hypokalemia: Resolved. (6) Suicidal ideation: 96-hour hold. Neuropsych consulted from ER. Patient is stable enough to be transferred to Neuropsych Unit. (7) Depression: Plan Lactic acidosis: Resolved Most likely in setting of dehydration and metformin at home. Encourage 1.5 to 2 L of fluid intake daily. Stop metformin on discharge. Patient is stable to be transferred to Neuropsych Unit. Continue on insulin sliding scale at low-dose protocol along with Lantus 5 units twice daily start Januvia 100 mg oral daily. Stop metformin. Restart home atorvastatin, gabapentin 800 mg 3 times daily, iron pills and Zoloft. We will continue to peripherally follow Full code. Carb consistent diet Off DVT prophylaxis as he is mobile Plan for today monitor blood sugars, increase Lantus to 5 units every 12 hours Attestations Medical Necessity Statement*: Patient requires hospitalization for hyperglycemia monitoring blood sugars Diagnoses Acute hyperglycemia R73.9 Pseudohyponatremia R79.89 BIJU (acute kidney injury) N17.9 Leukopenia D72.819 Hypokalemia E87.6 Suicidal ideation R45.851 Depression F32.A
--- NOTE | 2022-10-14 18:23 | P.NPUPN_ITS ---
Subjective NPU Subjective: Patient is a 52-year-old male with a history of PTSD and depression with admission here for suicidal ideation. He had reported continued concern about his medical problems. The patient had isolated himself on the milieu. He had continue to report some feelings of sadness. He had reported struggles with managing pain. He had reported some feelings of hopelessness and reported struggles with managing his medical illness. He had reported having problems with his memory. He reported having no side effects from his current medication but reported some difficulties with sleep initiation last night. Mental Status Exam MSE Comments: Patient is a thin white male who appeared older than his stated age. There was no evidence of any abnormal involuntary motor movements tics or tremors nydia reciated. There was significant psychomotor retardation evident. He did appear to have some problems with his balance with difficulties standing up without the aid of his wheelchair. His speech was slow and careful with normal volume. His mood was described as depressed. His affect was tearful throughout much of the interview. He had denied suicidal ideation today. There is no evidence of homicidal ideation. He did not appear to be responding to internal stimuli. He was alert and oriented to person place month year but not date or day of the week. He was able to spell world forwards and backwards showing adequate attention. His registration and recall continued to appear poor. His insight appeared poor. His judgment was poor. His impulse control appeared limited. Vitals/I&O/Wt Last Vital Signs Temp 98.6 F 10/14/22 14:00 Pulse 125 H 10/14/22 14:00 Resp 16 10/14/22 14:00 BP 125/84 10/14/22 14:00 Pulse Ox 98 10/14/22 14:00 O2 Del Method Room Air 10/14/22 14:00 Weight last 48 hrs Weight 67.993 kg Weight 67.993 kg Data NPU 10/13/22 08:21 10/13/22 08:21 A&P Assessment and plan (1) Major depressive disorder with single episode: (2) Suicidal ideation: (3) PTSD (post-traumatic stress disorder): Plan This is a 52-year-old white male admitted involuntarily with elevated blood sugar currently admitting severe depression with some symptoms suggestive of PTSD as well currently without his antidepressant for a few weeks. He would likely benefit from continued inpatient hospitalization. #1. Engage patient in individual milieu and group therapy. #2. We will attempt to gather collateral information from previous providers. #3. Continue Zoloft 50 mg daily and add Seroquel 100 mg at night to target depression and PTSD related symptoms. Increase Neurontin to 100 mg 4 times daily. #4. Recommend sober living treatment at the highest level of care to which the patient is willing to commit. Involuntary Hold Information 96 Hour Hold: 96 Hour Involuntary Admission: Yes 96 Hour Hold Ending Date: 10/17/22 96 Hour Hold Ending Time: 19:32 Attestations NPU Medical Necessity Statement*: Inpatient hospitalization is medically necessary and deemed to be the clinically appropriate intervention at this time. We will monitor and initiate medications as indicated and warranted. He will be in the hospital for over 2 midnights. His likely length of stay is 2-3 days. Coding Level of Care Code Acute Code for Chg Fwd Diagnoses Major depressive disorder with single episode F32.9 Suicidal ideation R45.851 PTSD (post-traumatic stress disorder) F43.10
[2022-10-14 18:34] LABS: Glucose Point of Care 453 mg/dL (70-110)
[2022-10-14 20:35] VITALS: BP 123/81; PULSE 78; RESP 18; TEMP 36.7; O2SAT 98
[2022-10-14] MEDS: quetiapine 100 mg Tablet PO (21:11)
[2022-10-14 21:20] LABS: Glucose Point of Care 163 mg/dL (70-110)
[2022-10-14 22:59] VITALS: O2SAT 99
[2022-10-15 06:00] VITALS: BP 112/77; PULSE 62; RESP 18; TEMP 36.7; O2SAT 99
[2022-10-15 08:41] LABS: Glucose Point of Care 156 mg/dL (70-110)
[2022-10-15] MEDS: ferrous sulfate EC 325 mg Tablet PO (09:20)
[2022-10-15] MEDS: sitagliptin 100 mg Tablet PO (09:20)
[2022-10-15] MEDS: atorvastatin 40 mg Tablet 20 MG PO (09:20)
[2022-10-15] MEDS: sertraline 50 mg Tablet PO (09:20)
[2022-10-15] MEDS: pantoprazole DR 40 mg Tablet PO (09:20)
[2022-10-15] MEDS: insulin lispro 100 unit/1 mL SUBCUT ×2 (09:21→12:35)
[2022-10-15] MEDS: insulin glargine 100 units/1 mL 10 UNIT SUBCUT (09:21)
[2022-10-15] MEDS: fluticasone nasal spray 16gm Btl 1 SPRAY NASAL (10:13)
[2022-10-15] MEDS: gabapentin 100 mg Capsule PO ×2 (10:13→12:35)
[2022-10-15 11:21] LABS: PCO2 VBG 44.9 mmHg (41-51); Venous Blood Gas Hematocrit 53.5 % (42-52); pH VBG 7.31 (7.32-7.42)
[2022-10-15 11:22] LABS: Base Excess VBG -3.8 mmol/L (-3.0-3.0); Blood Gas Operator Identificat WALCI; Blood Gas Sample Site NOT SPECIFIED; Blood Gas Sample Type VENOUS; PO2 VBG 34.5 mmHg (25-40)
[2022-10-15 11:34] LABS: Glucose Point of Care 202 mg/dL (70-110)
[2022-10-15 13:46] VITALS: BP 177/77; PULSE 74; RESP 12; TEMP 36.7; O2SAT 96
[2022-10-15 14:24] VITALS: BP 177/77; PULSE 74; RESP 12; TEMP 36.7; O2SAT 96
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
[2022-10-15 15:00] VITALS: BP 117/77; PULSE 74; RESP 12; TEMP 36.6; O2SAT 96
== END 2022-10-15 16:18 | disposition home or self-care (01) | DRG 881 ==
LOC: ER 19:32 → ICU 19:45 → NP 10-12 13:31
PROVIDERS: Emergency Medicine; Admitting Provider Student in an Organized Health Care Education/Training Program; Emergency Provider Physician Assistant; PCP Nurse Practitioner; Visit Provider Psychiatry & Neurology Psychiatry
DX: F32.9 Major depressive disorder, single episode, unspecified (principal); R45.851 Suicidal ideations; N17.9 Acute kidney failure, unspecified; E87.20 Acidosis, unspecified; E11.65 Type 2 diabetes mellitus with hyperglycemia; Z79.4 Long term (current) use of insulin; Z87.891 Personal history of nicotine dependence; J44.9 Chronic obstructive pulmonary disease, unspecified; D72.819 Decreased white blood cell count, unspecified; Z91.148 Patient's other noncompliance with medication regimen for other reason; E87.6 Hypokalemia; E86.0 Dehydration; Z86.16 Personal history of COVID-19; E78.00 Pure hypercholesterolemia, unspecified; F43.10 Post-traumatic stress disorder, unspecified; F15.10 Other stimulant abuse, uncomplicated; F12.10 Cannabis abuse, uncomplicated; Z85.118 Personal history of other malignant neoplasm of bronchus and lung
CPT/HCPCS: 36415; 36416; 71045; 80048; 80053; 80306; 80307; 81003; 82009; 82607; 82746; 82803; 82962; 83540; 83550; 83605; 83735; 84100; 84145; 85025; 86705; 86706; 86709; 86803; 87040; 87340; 87806; 94640; 94664; 96361; 96365; 96372; 96375; 97150; 97165; 97167; 99238; 99285; 99291; C9113; J1650; J1815; J3475; J3480; J7030; J7050; J7626

== ENCOUNTER 2023-01-01 14:14 | Observation (INO) | payer OTHER, SELFPAY ==
[2023-01-01] VITALS (10 sets, daily range): BP systolic 116–152; BP diastolic 76–98; PULSE 57–83; RESP 12–18; TEMP 36.4–36.5; O2SAT 94–100; BMI 20.3
--- NOTE | 2023-01-01 14:22 | ECG_ITS ---
[facility] Test Date: 2023-01-01 Pat Name: Suhas Manuel Department: Room: Gender: Male Special Procedures Tech: : 1970 Requested By: Alexandre Jacobson Order Number: [id number] Kyle MD: Ximena Blanchard M.D. Measurements Intervals [place] Rate: 72 P: 51 MI: 148 QRS: 17 QRSD: 113 T: 34 QT: 460 QTc: 507 Interpretive Statements SINUS RHYTHM MODERATE INTRAVENTRICULAR CONDUCTION DELAY [110+ ms QRS DURATION] PROLONGED QT INTERVAL Compared to ECG 08/20/2022 17:33:32 Intraventricular conduction delay now present Prolonged QT interval now present Electronically Signed On 01-01-2023 20:06:01 CDT by Ximena Blanchard M.D. [email or web address]
[2023-01-01 14:33] LABS: Glucose Point of Care 416 mg/dL (70-110)
[2023-01-01 14:36] LABS: ABG PCO2 36.8 mmHg (35-45); ABG PH Result 7.41 (7.35-7.45); Alveolar-Arterial Oxygen Gradi 0.4 mmHg (5-10); Arterial Blood Gas Hematocrit 33.5 % (42-52); Base Excess ABG -1.1 mmol/L (-2.0-2.0); Blood Gas Allen Test Pos; Blood Gas Operator Identificat CAK; Blood Gas Sample Site Radial, left; Blood Gas Sample Type Arterial; Carboxyhemoglobin 0.9 %THgb (0.4-20.1); HCO3 ABG 23.2 mmol/L (22-26); HGB O2 Sat 97.7 % (95-100); Ionized Calcium Level - ABG 1.2 mmol/L (1.1-1.4); Methemoglobin 0.1 % (0.4-1.5); Oxygen Device ROOM AIR; Oxygen Saturation ABG 98.7; Potassium Level - ABG 3.1 mmol/L (3.5-5.0); Total Hemoglobin 10.9 g/dL (14-18)
[2023-01-01] MEDS: ondansetron 2 mg/ML SDV 2 mL 4 MG IVP (14:39)
[2023-01-01] MEDS: sodium chloride 0.9% 1,000 ML 999 ML IV ×2 (14:39→15:55)
[2023-01-01 14:42] LABS: Basophils # 0.1 10^3/uL (0.0-0.1); Basophils % 2.4 %; Eosinophils # 0.1 10^3/uL (0.0-0.8); Hematocrit 40.9 % (37-53); Lymphocytes % 39.4 %; Mean Corpuscular HGB Conc 32.8 g/dL (30-55); Mean Corpuscular Hemoglobin 26.7 pg (27-33); Mean Corpuscular Volume 81.5 fl (82-101); Mean Platelet Volume 10.9 fL (7.4-10.4); Monocytes # 0.2 10^3/uL (0.2-0.9); Neutrophils # 1.25 10^3/uL (1.8-7.7); Neutrophils % 50.2 %; Nucleated Red Blood Cells % 0 %; Platelet Count 259 10^3/cmm (157-399); Red Blood Count 5.02 10^6/uL (3.85-5.65); Red Cell Distribution Width 12.3 % (12.1-15.1); White Blood Count 2.49 10^3/uL (3.29-11.43)
--- NOTE | 2023-01-01 14:44 | ED_ITS ---
Documented by User: Alexandre Kennedy DO 01/02/23 06:22 HPI - Altered Mental Status General: Chief Complaint: Altered Mental Status Stated Complaint: DKA Time Seen by Provider: 01/01/23 14:21 Source: patient Mode of arrival: EMS History of Present Illness: 52-year-old male presents emergency room complaining of elevated blood sugars. He also reported that he had altered mental status had gone to the [place] [facility] and seemed to be off his baseline. On arrival here he has no focal neurologic deficits noted he slurring his words and does appear to be slightly altered although I do not have anyone is familiar with him to compare and verify a normal baseline. He states his blood sugars been elevated because he ate a bunch of watermelon. He denies any chest pain or abdominal pain he does have mu ltiple dried eschars on the arms legs and face. No obvious deformities or fractures. MD complaint: confusion Associated symptoms: Deny auditory hallucinations, visual hallucinations, delusions, depression, homicidal ideation, racing thoughts, suicidal ideation or other Treatments prior to arrival: IV fluid Review of Systems Const: Denies: fever(s), chills, body aches, change in appetite, fatigue or malaise ENMT: Denies: throat pain, ear or mastoid pain, nasal discharge or nasal congestion Card: Denies: chest pain, edema, dyspnea on exertion or orthopnea Resp: Denies: dyspnea, productive cough or non-productive cough GI: Denies: abdominal pain, nausea, vomiting, hematemesis, coffee ground emesis, diarrhea, constipation, bloating, hematochezia or melena : Denies: flank pain, dysuria, urinary frequency or urinary urgency Skin/Breast: Denies: rash or pruritus Psych: Denies: depression, visual hallucinations, auditory hallucinations, suicidal ideation or homicidal ideation PFSH ED PFSH: Medical History Asthma Depression Insulin dependent diabetes mellitus Leukopenia Lung cancer Surgical History History of pneumonectomy Family History Other Diabetes Social History Smoking and tobacco status: never smoked Quit status (tobacco): has quit using tobacco Year quit tobacco: 2007 Former quit date comment: 1.5 X 11 years Alcohol intake: never Substance/Drug Use: never Lives independently: Yes Household members: spouse Marital status: 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 Eye: COMMON NORMALS: Equal, round and reactive pupils present, EOMs intact bilaterally, conjunctivae normal and no scleral icterus CONJUNCTIVA: Yes conjunctivae normal PUPIL: Yes Equal, round and reactive pupils present Neck/C-Spine: COMMON NORMALS: full ROM, no lymphadenopathy, supple and no JVD Lymph: LYMPHATIC: no lymphadenopathy noted and no lymphedema noted Resp: COMMON NORMALS: normal respiratory effort, No retractions, No use of accessory muscles and clear to auscultation bilaterally AUSCULTATION: clear to auscultation bilaterally Cardio: COMMON NORMALS: no JVD, regular rate, regular rhythm and No murmurs present (Cardio) RATE: regular rate RHYTHM: regular rhythm GI: COMMON NORMALS: Soft to palpation and No hepatosplenomegaly present AUSCULTATION: Yes normoactive bowel sounds PALPATION: Yes Soft to palpation, No Tenderness to palpation present (GI), No Guarding due to palpation present (GI) and Yes No hepatosplenomegaly present Extremity: COMMON NORMALS: normal to inspection, capillary refill normal, no clubbing, cyanosis or edema, no calf tenderness and no pedal edema Psych: THOUGHT CONTENT: No delusions Skin: COMMON NORMALS: no rashes or lesions noted GENERAL SKIN EXAM: no rashes or lesions noted Course Vital Signs: Vital signs: Vital Signs Temperature 98.0 F 01/02/23 03:46 Pulse Rate 69 01/02/23 03:46 Respiratory Rate 15 01/02/23 03:46 Blood Pressure 165/100 01/02/23 03:46 Pulse Oximetry 99 01/02/23 03:46 Oxygen Delivery Me thod Room Air 01/02/23 03:46 MDM - Altered Mental Status Medical Decision Making Presents with elevated blood sugar greater than 500 given IV fluids and insulin. He continues to be mildly altered. We are waiting on the drug screen he was up and ambulated. CT of head negative. Care signed out to Dr. Capps at change of shift. See final notes for diagnosis and disposition. Patient present here originally with hyperglycemia his blood glucose dropped i nto the 50s he became altered he also had a fall 3 days ago per family has had some increased weakness with falls head CT is normal will admit at this time family states his blood glucose has been having wild swings like that we will admit him for observation for monitoring. Lab Data 01/02/23 04:45 01/02/23 04:[address] 01/01/23 19:26 IMPRESSION: No evidence of acute intracranial hemorrhage, mass effect, or edema. Laboratory Results WBC 2.49 10^3/uL (3.29-11.43) L 01/01/23 14:26 RBC 5.02 10^6/uL (3.85-5.65) 01/01/23 14:26 Hgb 13.40 g/dL (11.27-16.99) 01/01/23 14:26 Hct 40.9 % (37-53) 01/01/23 14:26 MCV 81.5 fl (82-101) L 01/01/23 14:26 MCH 26.7 pg (27-33) L 01/01/23 14:26 MCHC 32.8 g/dL (30-55) 01/01/23 14:26 RDW 12.3 % (12.1-15.1) 01/01/23 14:26 Plt Count 259 10^3/cmm (157-399) 01/01/23 14:26 MPV 10.9 fL (7.4-10.4) H 01/01/23 14:26 Neut % (Auto) 50.2 % 01/01/23 14:26 Lymph % (Auto) 39.4 % 01/01/23 14:26 [place] % (Auto) 6.0 % 01/01/23 14: Eos % (Auto) 2.0 % 01/01/23 14: Baso % (Auto) 2.4 % 01/01/23 14: Neut # (Auto) 1.25 10^3/uL (1.8-7.7) L 01/01/23 14: Lymph # (Auto) 1.0 10^3/uL (0.8-4.8) 01/01/23 14: [place] # (Auto) 0.2 10^3/uL (0.2-0.9) 01/01/23 14: Eos # (Auto) 0.1 10^3/uL (0.0-0.8) 01/01/23 14: Baso # (Auto) 0.1 10^3/uL (0.0-0.1) 01/01/23 14: Nucleated RBC % (auto) 0 % 01/01/23 14: Nucleated RBCs # 0.0 /100WBC 01/01/23 14:26 Specimen Type Arterial 01/01/23 14:25 Sample Site Radial, left 01/01/23 14:25 ABG pH 7.41 (7.35-7.45) 01/01/23 14:25 ABG pCO2 36.8 mmHg (35-45) 01/01/23 14:25 ABG pO2 101.0 mmHg (80.0-100.0) H 01/01/23 14:25 ABG HCO3 23.2 mmol/L (22-26) 01/01/23 14:25 ABG O2 Saturation 98.7 01/01/23 14:25 ABG Base Excess -1.1 mmol/L (-2.0-2.0) 01/01/23 14:25 [place] Test Pos 01/01/23 14:25 A-a O2 Gradient 0.4 mmHg (5-10) L 01/01/23 14:25 Hematocrit 33.5 % (42-52) L 01/01/23 14:25 Hgb O2 Saturation 97.7 % (95-100) 01/01/23 14:25 Carboxyhemoglobin 0.9 %THgb (0.4-20.1) 01/01/23 14:25 Methemoglobin 0.1 % (0.4-1.5) L 01/01/23 14:25 Total Hemoglobin 10.9 g/dL (14-18) L 01/01/23 14:25 Sodium 136.0 mmol/L (131-143) 01/01/23 14:25 Potassium 3.1 mmol/L (3.5-5.0) L 01/01/23 14:25 Glucose 422.0 mg/dL (70-115) H 01/01/23 14:25 Ionized Calcium 1.2 mmol/L (1.1-1.4) 01/01/23 14:25 O2 Delivery Device Room air 01/01/23 14:25 FiO2 21.0 % 01/01/23 14:25 Tone Regulator ID Cak 01/01/23 14:25 Sodium 136 mmol/L (136-145) 01/01/23 15:14 Potassium 3.1 mmol/L (3.5-5.1) L 01/01/23 15:14 Chloride 103 mmol/L (98-107) 01/01/23 15:14 Carbon Dioxide 24 mmol/L (22-29) 01/01/23 15:14 Anion Gap 12.1 (5-19) 01/01/23 15:14 BUN 13 mg/dL (6-20) 01/01/23 15:14 Creatinine 1.1 mg/dL (0.7-1.2) 01/01/23 15:14 GFR Calculation 70.9 mL/min (90-130) L 01/01/23 15:14 Glucose 353 mg/dL (65-115) H 01/01/23 15:14 POC Glucose 149 mg/dL (70-110) H 01/01/23 20:11 Calculated Osmolality 296 mOsm/kg (285-295) H 01/01/23 15:14 Lactic Acid 1.6 mmol/L (0.5-2.2) 01/01/23 15:14 Calcium 8.0 mg/dL (8.5-10.5) L 01/01/23 15:14 Magnesium 1.7 mg/dL (1.7-2.3) 01/01/23 15:14 Total Bilirubin 0.2 mg/dL (0.15-1.2) 01/01/23 15:14 AST 28 U/L (0-40) 01/01/23 15:14 ALT 30 U/L (0-41) 01/01/23 15:14 Alkaline Phosphatase 101 U/L (40-130) 01/01/23 15:14 Creatine Kinase 255 U/L (39-308) 01/01/23 15:14 Total Protein 6.1 g/dL (6.6-8.7) L 01/01/23 15:14 Albumin 3.6 g/dL (3.5-5.2) 01/01/23 15:14 Globulin 2.5 g/dL (1.3-4.6) 01/01/23 15:14 Lipase 7 U/L (13-60) L 01/01/23 15:14 Urine Color Yellow (Yellow) 01/01/23 17:30 Urine Appearance Clear (CLEAR) 01/01/23 17:30 Urine pH 5 (5-7) 01/01/23 17:30 Ur Specific [place] 1.010 (1.005-1.030) 01/01/23 17:30 Urine Protein Neg (Negative) 01/01/23 17:30 Urine Glucose (UA) 4+ (Normal) H 01/01/23 17:30 Urine Ketones Negative (Negative) 01/01/23 17:30 Urine Blood 2+ (Negative) H 01/01/23 17:30 Urine Nitrate Negative (Negative) 01/01/23 17:30 Urine Bilirubin Neg (Negative) 01/01/23 17:30 Urine Urobilinogen Norm mg/dL (Negative) 01/01/23 17:30 Ur Leukocyte Esterase Negative (Negative) 01/01/23 17:30 Urine RBC 5-10 /hpf (0-2) H 01/01/23 17:30 Urine WBC 0-4 /hpf (0-5) H 01/01/23 17:30 Ur Squamous Epith Cells 0-4 /hpf (0-5) H 01/01/23 17:30 Amorphous Sediment Not Reportable 01/01/23 17:30 Urine Bacteria None /hpf (NONE) 01/01/23 17:30 Urine Opiates Screen Negative ng/mL (Negative) 01/01/23 17:30 Ur Barbiturates Screen Negative ng/mL (Negative) 01/01/23 17:30 Ur Phencyclidine Scrn Negative ng/mL (Negative) 01/01/23 17:30 Ur Amphetamines Screen Negative ng/mL (Negative) 01/01/23 17:30 U Benzodiazepines Scrn Negative ng/mL (Negative) 01/01/23 17:30 Urine Cocaine Screen Negative ng/mL (Negative) 01/01/23 17:30 U Marijuana (THC) Screen Negative ng/mL (Negative) 01/01/23 17:30 Ethyl Alcohol < 10 mg/dL (0-10) 01/01/23 15:14 Serum Ketones Negative (Negative) 01/01/23 15:14 Discharge Plan Discharge Patient Disposition: Admitted As Inpatient Admit Provider: Juan Foote Clinical Impression: Hypoglycemia, Weakness Condition: Stable Coding Level of Care Code ED Stringed Instrument Repairer for Chg Fwd Documented by User: Esau Capps MD 01/01/23 21:34 HPI - Altered Mental Status General: Chief Complaint: Altered Mental Status Stated Complaint: DKA Time Seen by Provider: 01/01/23 14:21 PFSH ED PFSH: Medical History Asthma Depression Insulin dependent diabetes mellitus Leukopenia Lung cancer Surgical History History of pneumonectomy Family History Other Diabetes Social History Smoking and tobacco status: never smoked Quit status (tobacco): has quit using tobacco Year quit tobacco: 2007 Former quit date comment: 1.5 X 11 years Alcohol intake: never Substance/Drug Use: never Lives independently: Yes Household members: spouse Marital status: 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 Course Vital Signs: Vital signs: Vital Signs Temperature 98.0 F 01/02/23 03:46 Pulse Rate 69 01/02/23 03:46 Respiratory Rate 15 01/02/23 03:46 Blood Pressure 165/100 01/02/23 03:46 Pulse Oximetry 99 01/02/23 03:46 Oxygen Delivery Me thod Room Air 01/02/23 03:46 MDM - Altered Mental Status Medical Decision Making Patient present here originally with hyperglycemia his blood glucose dropped into the 50s he became altered he also had a fall 3 days ago per family has had some increased weakness with falls head CT is normal will admit at this time family states his blood glucose has been having wild swings like that we will admit him for observation for monitoring. Medical Records I reviewed the patient's medical records. Lab Data I reviewed the patient's lab results. 01/02/23 04:45 01/02/23 04:[address] 01/01/23 19:26 IMPRESSION: No evidence of acute intracranial hemorrhage, mass effect, or edema. Laboratory Results WBC 2.49 10^3/uL (3.29-11.43) L 01/01/23 14:26 RBC 5.02 10^6/uL (3.85-5.65) 01/01/23 14:26 Hgb 13.40 g/dL (11.27-16.99) 01/01/23 14:26 Hct 40.9 % (37-53) 01/01/23 14:26 MCV 81.5 fl (82-101) L 01/01/23 14:26 MCH 26.7 pg (27-33) L 01/01/23 14:26 MCHC 32.8 g/dL (30-55) 01/01/23 14:26 RDW 12.3 % (12.1-15.1) 01/01/23 14:26 Plt Count 259 10^3/cmm (157-399) 01/01/23 14:26 MPV 10.9 fL (7.4-10.4) H 01/01/23 14:26 Neut % (Auto) 50.2 % 01/01/23 14:26 Lymph % (Auto) 39.4 % 01/01/23 14:26 [place] % (Auto) 6.0 % 01/01/23 14:26 Eos % (Auto) 2.0 % 01/01/23 14:26 Baso % (Auto) 2.4 % 01/01/23 14: Neut # (Auto) 1.25 10^3/uL (1.8-7.7) L 01/01/23 14: Lymph # (Auto) 1.0 10^3/uL (0.8-4.8) 01/01/23 14: [place] # (Auto) 0.2 10^3/uL (0.2-0.9) 01/01/23 14: Eos # (Auto) 0.1 10^3/uL (0.0-0.8) 01/01/23 14: Baso # (Auto) 0.1 10^3/uL (0.0-0.1) 01/01/23 14: Nucleated RBC % (auto) 0 % 01/01/23 14: Nucleated RBCs # 0.0 /100WBC 01/01/23 14:26 Specimen Type Arterial 01/01/23 14:25 Sample Site Radial, left 01/01/23 14:25 ABG pH 7.41 (7.35-7.45) 01/01/23 14:25 ABG pCO2 36.8 mmHg (35-45) 01/01/23 14:25 ABG pO2 101.0 mmHg (80.0-100.0) H 01/01/23 14:25 ABG HCO3 23.2 mmol/L (22-26) 01/01/23 14:25 ABG O2 Saturation 98.7 01/01/23 14:25 ABG Base Excess -1.1 mmol/L (-2.0-2.0) 01/01/23 14:25 [place] Test Pos 01/01/23 14:25 A-a O2 Gradient 0.4 mmHg (5-10) L 01/01/23 14:25 Hematocrit 33.5 % (42-52) L 01/01/23 14:25 Hgb O2 Saturation 97.7 % (95-100) 01/01/23 14:25 Carboxyhemoglobin 0.9 %THgb (0.4-20.1) 01/01/23 14:25 Methemoglobin 0.1 % (0.4-1.5) L 01/01/23 14:25 Total Hemoglobin 10.9 g/dL (14-18) L 01/01/23 14:25 Sodium 136.0 mmol/L (131-143) 01/01/23 14:25 Potassium 3.1 mmol/L (3.5-5.0) L 01/01/23 14:25 Glucose 422.0 mg/dL (70-115) H 01/01/23 14:25 Ionized Calcium 1.2 mmol/L (1.1-1.4) 01/01/23 14:25 O2 Delivery Device Room air 01/01/23 14:25 FiO2 21.0 % 01/01/23 14:25 Tone Regulator ID Cak 01/01/23 14:25 Sodium 136 mmol/L (136-145) 01/01/23 15:14 Potassium 3.1 mmol/L (3.5-5.1) L 01/01/23 15:14 Chloride 103 mmol/L (98-107) 01/01/23 15:14 Carbon Dioxide 24 mmol/L (22-29) 01/01/23 15:14 Anion Gap 12.1 (5-19) 01/01/23 15:14 BUN 13 mg/dL (6-20) 01/01/23 15:14 Creatinine 1.1 mg/dL (0.7-1.2) 01/01/23 15:14 GFR Calculation 70.9 mL/min (90-130) L 01/01/23 15:14 Glucose 353 mg/dL (65-115) H 01/01/23 15:14 POC Glucose 149 mg/dL (70-110) H 01/01/23 20:11 Calculated Osmolality 296 mOsm/kg (285-295) H 01/01/23 15:14 Lactic Acid 1.6 mmol/L (0.5-2.2) 01/01/23 15:14 Calcium 8.0 mg/dL (8.5-10.5) L 01/01/23 15:14 Magnesium 1.7 mg/dL (1.7-2.3) 01/01/23 15:14 Total Bilirubin 0.2 mg/dL (0.15-1.2) 01/01/23 15:14 AST 28 U/L (0-40) 01/01/23 15:14 ALT 30 U/L (0-41) 01/01/23 15:14 Alkaline Phosphatase 101 U/L (40-130) 01/01/23 15:14 Creatine Kinase 255 U/L (39-308) 01/01/23 15:14 Total Protein 6.1 g/dL (6.6-8.7) L 01/01/23 15:14 Albumin 3.6 g/dL (3.5-5.2) 01/01/23 15:14 Globulin 2.5 g/dL (1.3-4.6) 01/01/23 15:14 Lipase 7 U/L (13-60) L 01/01/23 15:14 Urine Color Yellow (Yellow) 01/01/23 17:30 Urine Appearance Clear (CLEAR) 01/01/23 17:30 Urine pH 5 (5-7) 01/01/23 17:30 Ur Specific [place] 1.010 (1.005-1.030) 01/01/23 17:30 Urine Protein Neg (Negative) 01/01/23 17:30 Urine Glucose (UA) 4+ (Normal) H 01/01/23 17:30 Urine Ketones Negative (Negative) 01/01/23 17:30 Urine Blood 2+ (Negative) H 01/01/23 17:30 Urine Nitrate Negative (Negative) 01/01/23 17:30 Urine Bilirubin Neg (Negative) 01/01/23 17:30 Urine Urobilinogen Norm mg/dL (Negative) 01/01/23 17:30 Ur Leukocyte Esterase Negative (Negative) 01/01/23 17:30 Urine RBC 5-10 /hpf (0-2) H 01/01/23 17:30 Urine WBC 0-4 /hpf (0-5) H 01/01/23 17:30 Ur Squamous Epith Cells 0-4 /hpf (0-5) H 01/01/23 17:30 Amorphous Sediment Not Reportable 01/01/23 17:30 Urine Bacteria None /hpf (NONE) 01/01/23 17:30 Urine Opiates Screen Negative ng/mL (Negative) 01/01/23 17:30 Ur Barbiturates Screen Negative ng/mL (Negative) 01/01/23 17:30 Ur Phencyclidine Scrn Negative ng/mL (Negative) 01/01/23 17:30 Ur Amphetamines Screen Negative ng/mL (Negative) 01/01/23 17:30 U Benzodiazepines Scrn Negative ng/mL (Negative) 01/01/23 17:30 Urine Cocaine Screen Negative ng/mL (Negative) 01/01/23 17:30 U Marijuana (THC) Screen Negative ng/mL (Negative) 01/01/23 17:30 Ethyl Alcohol < 10 mg/dL (0-10) 01/01/23 15:14 Serum Ketones Negative (Negative) 01/01/23 15:14 Discharge Plan Discharge Patient Disposition: Admitted As Inpatient Admit Provider: Juan Foote Clinical Impression: Hypoglycemia, Weakness Condition: Stable Coding Level of Care Code ED Stringed Instrument Repairer for Chg Fidel
--- NOTE | 2023-01-01 14:50 | PC.NURSE ---
PHYSICIAN AWARE OF SLURRED SPEECH. NO NEW VERBAL ORDERS AT THIS TIME.
[2023-01-01 15:40] LABS: Ketone (Acetest) Serum Negative (Negative)
[2023-01-01 15:43] LABS: Alanine Aminotransferase 30 U/L (0-41); Albumin Level 3.6 g/dL (3.5-5.2); Alkaline Phosphatase 101 U/L (40-130); Anion Gap 12.1 (5-19); Aspartate Amino Transferase 28 U/L (0-40); Blood Urea Nitrogen 13 mg/dL (6-20); Carbon Dioxide 24 mmol/L (22-29); Chloride 103 mmol/L (98-107); Creatine Phosphokinase 255 U/L (39-308); Globulin 2.5 g/dL (1.3-4.6); Glomerular Filtration Rate 70.9 mL/min (90-130); Glucose 353 mg/dL (65-115); Lipase 7 U/L (13-60); Osmolality Calculated 296 mOsm/kg (285-295); Potassium 3.1 mmol/L (3.5-5.1); Sodium 136 mmol/L (136-145); Total Bilirubin 0.2 mg/dL (0.15-1.2); Total Protein 6.1 g/dL (6.6-8.7)
[2023-01-01 15:44] LABS: Lactic Sepsis W/Reflex 1.6 mmol/L (0.5-2.2)
[2023-01-01 15:45] LABS: Alcohol Level < 10 mg/dL (0-10)
[2023-01-01 16:08] LABS: Magnesium 1.7 mg/dL (1.7-2.3)
[2023-01-01 16:53] LABS: Glucose Point of Care 215 mg/dL (70-110)
[2023-01-01] MEDS: insulin regular-human 100 units/1 mL 5 UNIT IVP (16:57)
[2023-01-01 17:51] LABS: Glucose Point of Care 353 mg/dL (70-110)
[2023-01-01 18:12] LABS: Add Urine Microscopic? YES; Bilirubin Urine Neg (Negative); Blood Urine 2+ (Negative); Glucose Urine UA 4+ (Normal); Ketones Urine Negative (Negative); Leukocyte Esterase Urine Negative (Negative); Nitrate Urine Negative (Negative); Protein Urine Neg (Negative); Urine Appearance Clear (CLEAR); Urine Color Yellow (Yellow); Urobilinogen Urine Norm (Negative); pH Urine 5 (5-7)
[2023-01-01 18:13] LABS: Add Urine Culture? No; Amphetamines Screen Urine Negative (Negative); Barbiturates Screen Urine Negative (Negative); Benzodiazepines Screen Urine Negative (Negative); Cocaine Screen Urine Negative (Negative); Opiate Screen Urine Negative (Negative); PCP Screen Urine Negative (Negative); Squamous Epithelial Cell Urine 0-4 /hpf (0-5); THC Screen Urine Negative (Negative); WBC Urine 0-4 /hpf (0-5)
[2023-01-01 19:24] LABS: Glucose Point of Care 56 mg/dL (70-110)
--- NOTE | 2023-01-01 19:26 | CTR_ITS ---
PROCEDURE INFORMATION: Exam: CT Head Without Contrast Exam date and time: 01/01/2023 8:01 PM Age: 52 years old Clinical indication: Altered mental status/memory loss; Confusion or disorientation; Patient HX: AMS. Confusion. Elevated glucose. TECHNIQUE: Imaging protocol: Computed tomography of the head without contrast. Radiation optimization: All CT scans at this facility use at least one of these dose optimization techniques: automated exposure control; mA and/or kV adjustment per patient size (includes targeted exams where dose is matched to clinical indication); or iterative reconstruction. REPORTING DATA: Count of CT and Cardiac NM exams in prior 12 months: This patient has received 2 known CTs and 0 known cardiac nuclear medicine studies in the 12 months prior to the current study. COMPARISON: CT head wo con* [id number] 08/20/2022 5:21 PM RADIATION DOSE METRICS: Total DLP (mGy-cm): 2224.78 FINDINGS: Brain: No hemorrhage. Unremarkable white matter. No mass effect. Preserved keller-white interfaces. Cerebral ventricles: No ventriculomegaly. Paranasal sinuses: Visualized sinuses are unremarkable. No fluid levels. Mastoid air cells: Visualized mastoid air cells are well aerated. Bones/joints: Unremarkable. No acute fracture. Soft tissues: Unremarkable. CT/CT head wo con* [id number] IMPRESSION: No evidence of acute intracranial hemorrhage, mass effect, or edema.
[2023-01-01 19:33] LABS: Glucose Point of Care 55 mg/dL (70-110)
--- NOTE | 2023-01-01 19:49 | PC.NURSE ---
Patient blood sugar was in the 50s. Dr Merchant stated to have patient eat. Patient ate a sandwich. Dr Merchant also ordered D50, Dr merchant stated to recheck his blood sugar after patient finishes eating and see the new reading before giving him the D50.
--- NOTE | 2023-01-01 20:15 | PC.NURSE ---
blood sugar 148, Dr. Capps notified. pt currently eating pizza. mother at bedside.
[2023-01-01 20:16] LABS: Glucose Point of Care 149 mg/dL (70-110)
[2023-01-01 22:19] LABS: Glucose Point of Care 208 mg/dL (70-110)
--- NOTE | 2023-01-01 22:20 | P.HP_ITS ---
Providers/Chief Complaint Admitting Physician: Juan Foote Primary Care Provider: JOSE GUADALUPE Murry Chief Complaint: DKA History of Present Illness Suhas Manuel is a 52 year old male brought in for evaluation to ER due to episodes of confusion, falls, with history of diabetes, depression, remote history of methamphetamine use, he is currently sleeping, I could not obtain history from him, he nodded answers to questions, but would not wake up, history to be obtained from his mother. In ER he was assessed with blood counts, chemistry, with noted some chronic leukopenia, mild hypokalemia, no suggestion of DKA. Minimal microscopic hematuria, 5 and 10 WBC, otherwise UA not suggestive of UTI. UDS unremarkable. CT head unremarkable. However, on recheck glucose after initial hyperglycemia and receiving 5 units of regular insulin blood glucose found to be down to 55. Received a D50 push. With labile blood glucose request was made for observation in the hospital. Speaking with his mother, she states that he uses a sliding scale insulin 3 times a day. Review of Systems General: Reports: ROS unobtainable due to mental status Const: Reports: other (Denies pain or discomfort.) Medications/Allergies Home Medications Medication Instructions Recorded Confirmed Last Taken Type insulin glargine 100 unit/mL See Rx Instructions .Route .COMPLEX 10/12/22 01/01/23 Unknown History subcutaneous solution (Lantus U-100 Insulin) metformin 500 mg tablet,extended 1,000 mg PO BID 10/12/22 01/01/23 Unknown History release 24 hr rosuvastatin 5 mg tablet 5 mg PO DAILY 10/12/22 01/01/23 Unknown History gabapentin 100 mg capsule 100 mg PO TID 30 days #90 caps 10/15/22 01/01/23 Unknown Rx quetiapine 100 mg tablet 100 mg PO BEDTIME 30 days #30 tabs 10/15/22 01/01/23 Unknown Rx ferrous sulfate 325 mg (65 mg 325 mg PO DAILY 01/01/23 01/01/23 Unknown History iron) tablet (iron) sertraline 100 mg tablet 100 mg PO DAILY 01/01/23 01/01/23 Unknown History Allergies Allergy/AdvReac Type Severity Reaction Status Date / Time No Known Allergies Allergy Verified 01/01/23 14:32 PFSH Acute PFSH: Medical History Asthma Depression Insulin dependent diabetes mellitus Leukopenia Lung cancer Surgical History History of pneumonectomy Family History Other Diabetes Social History Smoking and tobacco status: never smoked Quit status (tobacco): has quit using tobacco Year quit tobacco: 2007 Former quit date comment: 1.5 X 11 years Alcohol intake: never Substance/Drug Use: never Lives independently: Yes Household members: spouse Marital status: 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 Vitals/I&O/Wt Last Vital Signs Temp 97.5 F L 01/01/23 14:16 Pulse 72 01/01/23 22:03 Resp 16 01/01/23 21:59 BP 146/98 01/01/23 21:59 Pulse Ox 94 01/01/23 22:03 O2 Del Method Room Air 01/01/23 21:59 01/01/23 01/01/23 01/01/23 06:59 14:59 22:59 Intake Total 1999 Balance 1999 Weight last 48 hrs Weight 60.781 kg Physical Exam Narrative: Mother at bedside Const: GENERAL APPEARANCE: cooperative ORIENTATION/CONSCIOUSNESS: Yes ramon rgic HENMT: COMMON NORMALS: oropharynx normal OTHER: Eschar on nose Neck/C-Spine: COMMON NORMALS: no JVD Resp: COMMON NORMALS: normal respiratory effort and clear to auscultation bilaterally AUSCULTATION: clear to auscultation bilaterally Cardio: COMMON NORMALS: no JVD, regular rhythm, S1 normal heart sound present, S2 normal heart sound present and No murmurs present (Cardio) RHYTHM: regular rhythm HEART SOUNDS: S1 normal heart sound present and S2 normal heart sound present GI: COMMON NORMALS: Normal to inspection, nondistended, normoactive bowel sounds present, Soft to palpation and non-tender PALPATION: Yes Soft to palpation Extremity: COMMON NORMALS: no joint enlargement and no pedal edema Neuro: COMMON NORMALS: moves all extremities Skin: COMMON NORMALS: no rashes or lesions noted GENERAL SKIN EXAM: no rashes or lesions noted Data 01/01/23 14:26 01/01/23 15:14 Micro: Microbiology 01/01/23 14:48 Blood Culture - Preliminary Blood SPECIMEN COLLECTED 01/01/23 14:45 Blood Culture - Preliminary Blood SPECIMEN COLLECTED A&P Assessment and plan (1) Hypoglycemia: BG down to 55 after 5 units regular insulin IV. At home BG fluctuate per his mother. She states he tries to watch his diet, but there is room for improvement, this morning he had chips, watermelon and then pizza. He the treats elevated blood glucose she says with a sliding scale insulin which he takes 3 times a day and also takes metformin. Subsequently sugar sometimes bottom out she says that he sometimes gets confused, somewhat sluggish, slurred speech, at that time also short temper, irritable. It seems to have checked sugars during that time and they are more high than low. The only insulin listed in chart appears to be Lantus. As I am unable to get history from him, please confirm that he is not using Lantus as a sliding scale 3 times a day. He received D50 for hypoglycemia in ER. Monitor blood glucose. Low-dose sliding scale for now while in the hospital, consistent carbohydrate diet. Monitor blood sugars with labile blood glucose. He would benefit from follow-up with endocrinology after discharge. (2) Episodic confusion: Unclear cause of episodic confusion, could be related to labile blood glucose, his mother states that he gets slurred speech during that time, may get irritable, short tempered, she states that when they check blood sugar it is usually more in the high side rather than low during episodes. Not sure that hypoglycemia entirely explains these. Otherwise CT head unremarkable. UA minimal microscopic hematuria. CT head unremarkable. He had remote history of methamphetamine use, but has not used actively for a while, over a year probably, though did have a inadvertent relapse reportedly when a friend visited and put some in their food. She is not aware of any current active use. UDS is negative. Please assess his medication list to see if any of his medicines could be contributing as well. Mother reports history of prior stroke. Will assess by MRI brain. Consider additional diagnoses, possibly complex partial seizure. (3) Falls: Fall precautions. Additional assessment as above. History of depression Leukopenia Colon cancer history of lobectomy Plan Microscopic hematuria: 5-10 RBC. UA otherwise not suggestive of UTI. Follow-up with PCP for resolution or otherwise referral for additional assessment. Attestations Medical Necessity Statement*: Place in observation for additional optimization of diabetes control with labile blood glucose, hypoglycemia, assessment of episodic confusion. Coding Level of Care Code Acute Code for Chg Fwd Diagnoses Hypoglycemia E16.2 Episodic confusion R41.0 Falls W19.XXXA
[2023-01-01] MEDS: heparin 5,000 unit/mL INJ 1 mL 5000 UNIT SUBCUT (23:26)
--- NOTE | 2023-01-01 23:50 | PC.NURSE ---
Scabs on pts nose noted from a fall a few days ago.
[2023-01-02 03:46] VITALS: BP 165/100; PULSE 69; RESP 15; TEMP 36.7; O2SAT 99
[2023-01-02] MEDS: amlodipine 5 mg Tablet PO (04:51)
[2023-01-02 05:05] LABS: Basophils # 0.1 10^3/uL (0.0-0.1); Basophils % 2.3 %; Eosinophils # 0.1 10^3/uL (0.0-0.8); Eosinophils % 3.4 %; Hematocrit 35.1 % (37-53); Lymphocytes # 1.2 10^3/uL (0.8-4.8); Lymphocytes % 33.5 %; Mean Corpuscular HGB Conc 32.8 g/dL (30-55); Mean Corpuscular Hemoglobin 26.9 pg (27-33); Mean Corpuscular Volume 82.2 fl (82-101); Mean Platelet Volume 10.4 fL (7.4-10.4); Monocytes # 0.2 10^3/uL (0.2-0.9); Monocytes % 6.5 %; Neutrophils # 1.92 10^3/uL (1.8-7.7); Nucleated Red Blood Cells % 0 %; Platelet Count 268 10^3/cmm (157-399); Red Blood Count 4.27 10^6/uL (3.85-5.65); Red Cell Distribution Width 12.2 % (12.1-15.1); White Blood Count 3.55 10^3/uL (3.29-11.43)
[2023-01-02 05:32] LABS: Alanine Aminotransferase 29 U/L (0-41); Albumin Level 3.1 g/dL (3.5-5.2); Alkaline Phosphatase 99 U/L (40-130); Anion Gap 12.2 (5-19); Aspartate Amino Transferase 25 U/L (0-40); Blood Urea Nitrogen 11 mg/dL (6-20); Calcium 7.9 mg/dL (8.5-10.5); Carbon Dioxide 24 mmol/L (22-29); Chloride 111 mmol/L (98-107); Globulin 2.8 g/dL (1.3-4.6); Glomerular Filtration Rate 89.3 mL/min (90-130); Glucose 133 mg/dL (65-115); Osmolality Calculated 299 mOsm/kg (285-295); Potassium 3.2 mmol/L (3.5-5.1); Sodium 144 mmol/L (136-145); Total Bilirubin 0.2 mg/dL (0.15-1.2); Total Protein 5.9 g/dL (6.6-8.7)
[2023-01-02 06:45] LABS: Glucose Point of Care 187 mg/dL (70-110)
[2023-01-02 07:27] VITALS: BP 143/83; PULSE 75; RESP 16; TEMP 36.7; O2SAT 99
[2023-01-02] MEDS: insulin lispro 100 unit/1 mL SUBCUT (09:00)
--- NOTE | 2023-01-02 10:28 | PC.CHAP ---
Pastoral Care Encounter/Spiritual Assessment Type of Contact [] Declined remote medical coder visit [] Patient/Family/Request visit [] Outpatient visit [] Follow-up visit [] Physician referral [] Code/Alert [x] Routine visit [] Staff referral [] Actively dying [] Patient sleeping [] Family support [] [] Out of room [] Palliative care [] [x] Receiving care in room [] Pre-surgical visit [] Trauma [] Long length of stay [] ICU visit [] Other: Relational/Emotional Strength [x] Patient feels connected with others/family/visitors/staff [] Distress [] Loneliness/isolation [] Abandonment Spirituality of Patient [x] Person of Preeti [] Attends Moravian of their Preeti [x] Believes in Prayer [] Reads Bible or Jainism materials [] There are Spiritual issues to be addressed Human Resources Hr Representative Interventions [x] Prayer [x] Active listening [x] Non-anxious presence [x] Spiritual/emotional support [] Crisis/trauma care [x] Spiritual counseling [] Bereavement support [] Provided bereavement packet [] Provided Bible/devotional materials [] Provided toy/stuffed animal, coloring book to patient or family member [] Provided Communion [] Anointing/Harmans [] Salvation [] Completed spiritual assessment [] Other: Impact on Illness or Injury [] Angry [] Fearful [] Anxious [] Often cries [] Exhaustion [] Unable to work [] Unable to attend congregational [] Unable to walk/stand [] Unable to read [] Unable to drive [] Unable to eat/drink [] Unable to sleep [] Unable to be with family [] Patient intubated [] Other: Summary heart had tests not surew about what needs to be done +1 family well be going home Time spent with patient 10 mins
[2023-01-02 11:00] VITALS: BP 151/92; PULSE 67; RESP 16; TEMP 36.6; O2SAT 100
[2023-01-02 11:33] LABS: Glucose Point of Care 112 mg/dL (70-110)
[2023-01-02] MEDS: heparin 5,000 unit/mL INJ 1 mL 5000 UNIT SUBCUT (11:44)
--- NOTE | 2023-01-02 12:33 | PM.DCS ---
Discharge Providers Date of Admission: 01/01/23 21:22 Date of Discharge: January 02, 2023 Attending Provider at Admission: Juan Foote Attending Provider at Discharge: Dominic Hopkins MD Primary Care Provider: JOSE GUADALUPE Murry Diagnoses at Discharge Discharge Diagnosis (1) Hypoglycemia: Status: Acute (2) Episodic confusion: Status: Acute (3) Falls: Status: Acute Reason for Visit Reason for Visit: DKA Hospital Course Hospital Course Suhas is a 52-year-old male that presented to the emergency department with episodes of confusion, falls for the last 4 months. After initial hyperglycemia in the ER he was hypoglycemic after some regular insulin. He was observed in the hospital. Confusion abated as has been the pattern that mother has noted at home. She reports that he has gradual increase in weakness, issues with confusion and word finding ability, now using a walker. Work-up was unrevealing with the exception of MRI which was concerning for possible neurodegenerative disease. I have visited with Dr. Damon, and consulted her on the patient. He will require further follow-up as an outpatient. An MRI with contrast will be arranged outpatient. Possible blood work prior to the appointment as well. At this point it is safe for discharge home with further work-up as an outpatient. Fall precautions were given. Patient and mother were present, ability to ask questions, and agreed with the plan. Physical Exam Narrative: General exam no distress Neck is supple Cardiovascular regular rate and rhythm, no murmur Lungs clear Abdomen is soft Extremities no cyanosis clubbing or edema Neuro: No obvious focal deficits, but some global weakness. Discharge Data Studies Completed and Pending Completed Studies During Hospitalization Category Date Time Status CT head wo con* [id number] Stat Cat Scan 01/01/23 19:26 Completed MR head wo con* [id number] Routine MRI 01/02/23 23:04 Completed Pending at discharge Category Date Time Status Blood Culture Stat Lab 01/01/23 14:48 Results Complete Blood Count w/Auto AM LABS Lab 01/03/23 04:00 Ordered Complete Blood Count w/Auto AM LABS Lab 01/04/23 04:00 Ordered Comprehensive Metabolic Panel AM LABS Lab 01/03/23 04:00 Ordered Comprehensive Metabolic Panel AM LABS Lab 01/04/23 04:00 Ordered Radiology Impressions Head CT 01/01/23 19:26 IMPRESSION: No evidence of acute intracranial hemorrhage, mass effect, or edema. Laboratory Results WBC 3.55 10^3/uL (3.29-11.43) 01/02/23 04:45 RBC 4.27 10^6/uL (3.85-5.65) 01/02/23 04:45 Hgb 11.50 g/dL (11.27-16.99) 01/02/23 04:45 Hct 35.1 % (37-53) L 01/02/23 04:45 MCV 82.2 fl (82-101) 01/02/23 04:45 MCH 26.9 pg (27-33) L 01/02/23 04:45 MCHC 32.8 g/dL (30-55) 01/02/23 04:45 RDW 12.2 % (12.1-15.1) 01/02/23 04:45 Plt Count 268 10^3/cmm (157-399) 01/02/23 04:45 MPV 10.4 fL (7.4-10.4) 01/02/23 04:45 Neut % (Auto) 54.0 % 01/02/23 04:45 Lymph % (Auto) 33.5 % 01/02/23 04:45 [place] % (Auto) 6.5 % 01/02/23 04:45 Eos % (Auto) 3.4 % 01/02/23 04:45 Baso % (Auto) 2.3 % 01/02/23 04:45 Neut # (Auto) 1.92 10^3/uL (1.8-7.7) 01/02/23 04:45 Lymph # (Auto) 1.2 10^3/uL (0.8-4.8) 01/02/23 04:45 Hartley # (Auto) 0.2 10^3/uL (0.2-0.9) 01/02/23 04:45 Eos # (Auto) 0.1 10^3/uL (0.0-0.8) 01/02/23 04:45 Baso # (Auto) 0.1 10^3/uL (0.0-0.1) 01/02/23 04:45 Nucleated RBC % (auto) 0 % 01/02/23 04:45 Nucleated RBCs # 0.0 /100WBC 01/02/23 04:45 Specimen Type Arterial 01/01/23 14:25 Sample Site Radial, left 01/01/23 14:25 ABG pH 7.41 (7.35-7.45) 01/01/23 14:25 ABG pCO2 36.8 mmHg (35-45) 01/01/23 14:25 ABG pO2 101.0 mmHg (80.0-100.0) H 01/01/23 14:25 ABG HCO3 23.2 mmol/L (22-26) 01/01/23 14:25 ABG O2 Saturation 98.7 01/01/23 14:25 ABG Base Excess -1.1 mmol/L (-2.0-2.0) 01/01/23 14:25 [place] Test Pos 01/01/23 14:25 A-a O2 Gradient 0.4 mmHg (5-10) L 01/01/23 14:25 Hematocrit 33.5 % (42-52) L 01/01/23 14:25 Hgb O2 Saturation 97.7 % (95-100) 01/01/23 14:25 Carboxyhemoglobin 0.9 %THgb (0.4-20.1) 01/01/23 14:25 Methemoglobin 0.1 % (0.4-1.5) L 01/01/23 14:25 Total Hemoglobin 10.9 g/dL (14-18) L 01/01/23 14:25 Sodium 136.0 mmol/L (131-143) 01/01/23 14:25 Potassium 3.1 mmol/L (3.5-5.0) L 01/01/23 14:25 Glucose 422.0 mg/dL (70-115) H 01/01/23 14:25 Ionized Calcium 1.2 mmol/L (1.1-1.4) 01/01/23 14:25 O2 Delivery Device Room air 01/01/23 14:25 FiO2 21.0 % 01/01/23 14:25 Assistant City Attorney ID Cak 01/01/23 14:25 Sodium 144 mmol/L (136-145) 01/02/23 04:45 Potassium 3.2 mmol/L (3.5-5.1) L 01/02/23 04:45 Chloride 111 mmol/L (98-107) H 01/02/23 04:45 Carbon Dioxide 24 mmol/L (22-29) 01/02/23 04:45 Anion Gap 12.2 (5-19) 01/02/23 04:45 BUN 11 mg/dL (6-20) 01/02/23 04:45 Creatinine 0.9 mg/dL (0.7-1.2) 01/02/23 04:45 GFR Calculation 89.3 mL/min (90-130) L 01/02/23 04:45 Glucose 133 mg/dL (65-115) H 01/02/23 04:45 POC Glucose 112 mg/dL (70-110) H 01/02/23 11:29 Calculated Osmolality 299 mOsm/kg (285-295) H 01/02/23 04:45 Lactic Acid 1.6 mmol/L (0.5-2.2) 01/01/23 15:14 Calcium 7.9 mg/dL (8.5-10.5) L 01/02/23 04:45 Magnesium 1.7 mg/dL (1.7-2.3) 01/01/23 15:14 Total Bilirubin 0.2 mg/dL (0.15-1.2) 01/02/23 04:45 AST 25 U/L (0-40) 01/02/23 04:45 ALT 29 U/L (0-41) 01/02/23 04:45 Alkaline Phosphatase 99 U/L (40-130) 01/02/23 04:45 Creatine Kinase 255 U/L (39-308) 01/01/23 15:14 Total Protein 5.9 g/dL (6.6-8.7) L 01/02/23 04:45 Albumin 3.1 g/dL (3.5-5.2) L 01/02/23 04:45 Globulin 2.8 g/dL (1.3-4.6) 01/02/23 04:45 Lipase 7 U/L (13-60) L 01/01/23 15:14 Urine Color Yellow (Yellow) 01/01/23 17:30 Urine Appearance Clear (CLEAR) 01/01/23 17:30 Urine pH 5 (5-7) 01/01/23 17:30 Ur Specific [place] 1.010 (1.005-1.030) 01/01/23 17:30 Urine Protein Neg (Negative) 01/01/23 17:30 Urine Glucose (UA) 4+ (Normal) H 01/01/23 17:30 Urine Ketones Negative (Negative) 01/01/23 17:30 Urine Blood 2+ (Negative) H 01/01/23 17:30 Urine Nitrate Negative (Negative) 01/01/23 17:30 Urine Bilirubin Neg (Negative) 01/01/23 17:30 Urine Urobilinogen Norm mg/dL (Negative) 01/01/23 17:30 Ur Leukocyte Esterase Negative (Negative) 01/01/23 17:30 Urine RBC 5-10 /hpf (0-2) H 01/01/23 17:30 Urine WBC 0-4 /hpf (0-5) H 01/01/23 17:30 Ur Squamous Epith Cells 0-4 /hpf (0-5) H 01/01/23 17:30 Amorphous Sediment Not Reportable 01/01/23 17:30 Urine Bacteria None /hpf (NONE) 01/01/23 17:30 Urine Opiates Screen Negative ng/mL (Negative) 01/01/23 17:30 Ur Barbiturates Screen Negative ng/mL (Negative) 01/01/23 17:30 Ur Phencyclidine Scrn Negative ng/mL (Negative) 01/01/23 17:30 Ur Amphetamines Screen Negative ng/mL (Negative) 01/01/23 17:30 U Benzodiazepines Scrn Negative ng/mL (Negative) 01/01/23 17:30 Urine Cocaine Screen Negative ng/mL (Negative) 01/01/23 17:30 U Marijuana (THC) Screen Negative ng/mL (Negative) 01/01/23 17:30 Ethyl Alcohol < 10 mg/dL (0-10) 01/01/23 15:14 Serum Ketones Negative (Negative) 01/01/23 15:14 Vitals Last Vital Signs Temp 97.8 F 01/02/23 11:00 Pulse 67 01/02/23 11:00 Resp 16 01/02/23 11:00 BP 151/92 01/02/23 11:00 Pulse Ox 100 01/02/23 11:00 O2 Del Method Room Air 01/02/23 11:00 Discharge Plan Discharge Patient Disposition: Home Condition: Stable Prescriptions: Continued rosuvastatin 5 mg Tablet 5 mg PO DAILY metformin 500 mg tablet extended release 24 hr 1,000 mg PO BID insulin glargine [Lantus U-100 Insulin] 100 unit/mL solution See Rx Instructions .ROUTE .COMPLEX Rx Instructions: 10 unit subcutaneously qam and 20 units qpm quetiapine 100 mg Tablet 100 mg PO BEDTIME 30 Days Qty: 30 1RF gabapentin 100 mg Capsule 100 mg PO TID 30 Days Qty: 90 1RF iron 325 mg (65 mg iron) Tablet 325 mg PO DAILY sertraline 100 mg tablet 100 mg PO DAILY Discharge Orders: Discharge Order (Routine); Ordered 01/02/23 Ordered By: Dominic Hopkins Other Ambulatory Orders: MR head wo/w con [id number] (Routine) Timeframe: 1 Week Facility: [facility] - Location: Radiology [place] [facility] Ordered By: Dominic Hpokins Referrals: Cindy Damon MD [Physician] - 2 weeks (MR head with contrast prior to appt) Laurie Frazier FNP [Primary Care Provider] - 4-7 days Discharge Diet: Diabetic Discharge Activity: Increase activity as tolerated Patient Instructions: Hyponatremia (ED), Benzodiazepine Use Disorder (ED), Dementia (ED), Non-diabetic Hypoglycemia (ED), Hypoglycemia in a Person with Diabetes (ED), Concussion (ED), Alcohol Intoxication (ED), Subarachnoid Hemorrhage (GEN), Altered Mental Status (ED), Opioid Safety Activity Restrictions/Additional Instructions: Take all medicine as prescribed Return for any concerns Keep follow-up with Dr. Damon and neurology. MRI to be done with contrast prior to this appointment. Will likely need blood work prior to appointment, and this will be arranged by phone. Discharge Attestations Time Spent in Discharge Care*: greater than 30 min Quality Metrics Clinical Quality Measures [ No reported AMI, CVA or VTE this stay] Coding Level of Care Code 05106 Total time (in minutes) for Discharge: 46 Diagnoses Hypoglycemia E16.2 Episodic confusion R41.0 Falls W19.XXXA
--- NOTE | 2023-01-02 12:39 | P.CONIM_ITS ---
Providers/Reason For Consult Consulting Physician/Specialty*: Dr. Hopkins/hospitalist Reason for Consult*: Progressive generalized neurologic dysfunction Requesting Physician: Dr. Hopkins Attending Physician: Dominic Hopkins MD Primary Care Provider: JOSE GUADALUPE Murry History of Present Illness History of Present Illness Suhas Manuel is a 52 year old man who was hospitalized for elevated blood sugar and altered mental status. His mother said that sometimes his blood sugar gets into the thousands. He took a fall recently. She has been looking after his sister who is on dialysis and has not been able to closely attend him the way she was before. He has a 4-month history of gait disorder. He had to start using a walker 4 months ago. In the last month he has been more confused. He forgets lots of things. He took a fall recently. 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 His blood sugar is always out of control, high or low. He came to the ER for concern of DKA on 01/02/2023. His blood sugar was greater than 500. His speech was slurred and he was confused. He has a bruise on the front of his face from falling several days ago. CBC was unremarkable. He has lost 30 pounds. He was brought to the emergency department 10/11/2022 because he had suicidal ideation. He said that he had a stroke several months before that and that he had been using a walker since then. He was not eating or drinking. His blood sugar was markedly elevated and he was actually put in the ICU because his blood sugar was so high. He was transferred to [facility] where he admitted that he has been depressed and had suicidal ideation. He is not sleeping. He ran out [employer]. He had PTSD from the . He was evaluated by Dr. Gore. His mother describes that he has myoclonic jerks when he is laying down. His MRI scan suggested some type of the degenerative process. MRI brain without contrast 01/01/2023 1.? No evidence of restricted diffusion to suggest acute ischemia. 2.? Minimal supratentorial white matter changes. Moderate parenchymal volume loss somaewhat prominent for a patient of this age. This appears increased since CT 11/30/2021 3.? Increased T2 signal abnormality involving the traversing pontocerebellar fibers in the david and middle cerebral peduncles. This is nonspecific but can be seen with neurodegenerative diseases such as multisystem atrophy. Recommend further evaluation with gadolinium and conventional spin echo imaging. 4.? Mild flattening of the ventral david best appreciated on the sagittal imaging. 5.? Mild to moderate symmetric atrophy temporal lobes and hippocampal formations. 6.? No hemosiderin on susceptibility-weighted images. Dictated By: Prabhakar Valencia MD Review of Systems Const: Denies: fever(s), change in weight or fatigue Eyes: Denies: change in vision, blurry vision, blind spots, photophobia, eye discomfort, seeing flashes or other (Glaucoma) ENMT: Denies: odynophagia, hoarseness, change in hearing, tinnitus, sinus pain or other (Loss of taste/smell) Card: Denies: chest pain, palpitations, syncope or other (Calf cramps) Resp: Reports: dyspnea and productive cough; Denies: non-productive cough, wheezing, hemoptysis or chest congestion GI: Denies: abdominal pain, nausea, heartburn, diarrhea, constipation or hematochezia : Denies: urinary frequency or urinary incontinence Musc: Denies: neck pain, muscle weakness or other (Muscle pain) Skin/Breast: Denies: rash, new lesions or breast mass Neuro: Reports: weakness in extremities, lack of coordination, difficulty walking, frequent falls and Slurred speech present; Denies: headache(s), numbness in extremities, sensory changes or seizure-like activity Psych: Reports: depression, memory loss and difficulty concentrating; Denies: irritability or other (Personality Changes) Endo: Denies: polyuria, polydipsia, excessive sweating or change in body appearance Oswald/Lymph: Denies: easy bruising, easy bleeding or enlarged lymph nodes Medications/Allergies Home Medications Medication Instructions Recorded Confirmed Last Taken Type insulin glargine 100 unit/mL See Rx Instructions .Route .COMPLEX 10/12/2212/11 Unknown History subcutaneous solution (Lantus U-100 Insulin) metformin 500 mg tablet,extended 1,000 mg PO BID 10/12/22 01/01/23 Unknown History release 24 hr rosuvastatin 5 mg tablet 5 mg PO DAILY 10/12/22 01/01/23 Unknown History gabapentin 100 mg capsule 100 mg PO TID 30 days #90 caps 10/15/22 01/01/23 Unknown Rx quetiapine 100 mg tablet 100 mg PO BEDTIME 30 days #30 tabs 10/15/22 01/01/23 Unknown Rx ferrous sulfate 325 mg (65 mg 325 mg PO DAILY 01/01/23 01/01/23 Unknown History iron) tablet (iron) sertraline 100 mg tablet 100 mg PO DAILY 01/01/23 01/01/23 Unknown History Allergies Allergy/AdvReac Type Severity Reaction Status Date / Time No Known Allergies Allergy Verified 01/01/23 14:32 Current Medications Generic Name Dose Route Start Last Admin Trade Name Freq PRN Reason Stop Dose Admin Heparin Sodium (Porcine) 5,000 unit 01/01/23 22:30 01/02/23 11:44 Heparin 5,000 Unit/Ml Inj 1 Ml SUBCUT 5,000 unit Q12H HELEN Administration Insulin Human Lispro 0 unit 01/02/23 08:00 01/02/23 11:41 Insulin Lispro 100 Unit/1 Ml SUBCUT Not Given WM&BEDTIME HELEN Protocol PFSH Acute PFSH: Medical History Asthma Depression Insulin dependent diabetes mellitus Leukopenia Lung cancer Surgical History History of pneumonectomy Family History Other Diabetes Social History Smoking and tobacco status: never smoked Quit status (tobacco): has quit using tobacco Year quit tobacco: 2007 Former quit date comment: 1.5 X 11 years Alcohol intake: never Substance/Drug Use: never Lives independently: Yes Household members: spouse Marital status: 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 Arrhythmic. He was oriented to 10 of 10 questions of orientation and could give a recent account of the events. CRANIAL NERVES: Visual acuity was not tested. Visual [place] were full to confrontation, direct and consensual. Extraocular movements were full with ratchety eye movements. PERRLA. Face was symmetric at rest and with grimace. Facial sensation was intact in all three distributions of the fifth cranial nerve bilaterally to touch. Hearing was intact to soft spoken voice. Speech dysarthric. MOTOR: No drift. Fine movements equal but slow. He is weak in all 4 extremities. SENSATION: He can feel pin and vibration distally in all 4 extremities. COORDINATION: No myoclonus. No tremor. Ihgb-pina-kyvh and qvlcub-unqk-ntpywt performed slowly but smoothly. DEEP TENDON REFLEXES: He has brisk withdrawal but both toes appear to go up. He is very ticklish in the feet. GAIT: Not tested HEENT: He has a chronically ill appearance, cachectic NECK: Carotid upstroke was strong bilaterally without bruits. The thyroid was not enlarged and there were no palpable lymph nodes. CHEST: Scattered rhonchi. CARDIOVASCULAR: The heart sounds were normal without murmur or gallop. Regular rate and rhythm. EXTREMITIES: he has multiple joint deformities. Data 01/02/23 04:45 01/02/23 04:45 Micro: Microbiology 01/01/23 14:48 Blood Culture - Preliminary Blood SPECIMEN COLLECTED 01/01/23 14:45 Blood Culture - Preliminary Blood SPECIMEN COLLECTED Other data: His MRI of the brain was reviewed. 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 He presents with gradually progressive gait disorder over the course of the last 4 months which is somewhat fast for development of multiple systems atrophy. I agree with Dr. Valencia that MRI with contrast would be useful to rule out encephalitis. He does not have classic findings to suggest Creutzfeldt Warren although his rapidly progressive dementia, myoclonus and gait disorder would give rise to concern for that. I talked with the patient and his mother at length. I scheduled an appointment in neurology, alerting my staff that the patient needs to follow-up preferably within several weeks of discharge. Dr. Hopkins will schedule him for an EEG, MRI brain with contrast. I do not see any reason to do NMDA receptors or other studies until we do the MRI with contrast and EEG and based on that I will compose laboratory exam depending on whether I do spinal fluid analysis on him when I see him as an outpatient. Thanks for asking me to see him. (2) PTSD (post-traumatic stress disorder): (3) History of lobectomy of lung: Consult Attestations Medical Necessity Statement: Combination of blood sugar out of control and confusion with loss of balance indicating progressive neurologic dysfunction. Time Spent in Patient Care: Greater than 35 minutes Coding Level of Care Code Acute Code for [facility] Fwd Diagnoses Multiple system atrophy C G23.8 PTSD (post-traumatic stress disorder) F43.10 History of lobectomy of lung Z90.2
[2023-01-02 13:41] VITALS: BP 151/92; PULSE 67; RESP 16; TEMP 36.6; O2SAT 100
--- NOTE | 2023-01-02 23:04 | MR_ITS ---
WS: [id number] MRI HEAD WITHOUT CONTRAST TECHNIQUE: Sagittal T1, T2 axial, T2 axial FLAIR, axial and coronal T1 images, axial susceptibility w eighted imaging, axial diffusion weighted images, and coronal T2 images were obtained. CLINICAL INFORMATION: episodic confusion COMPARISON: None. FINDINGS: Fast imaging performed. No evidence of restricted diffusion to suggest acute ischemia. Ventricular system and basal cisterns are patent. Minimal supratentorial white matter changes. Moderate parenchymal volume loss. Increased T2 signal abnormality involving the david and middle cerebellar peduncles along the traversing pontoce rebellar fibers. This is nonspecific but can be seen with neurodegenerative disease such as multisyst em atrophy. Some of this may be due to fast imaging technique. Recommend further evaluation with gado linium and conventional spin echo imaging. Mild flattening of the ventral david. No significant cerebe llar atrophy. No hemosiderin on the susceptibly weighted images. Normal optic chiasm and pituitary infundibulum. M ild to moderate symmetric atrophy temporal lobes and hippocampal formations. Normal vascular flow voids at the skull base. No extra-axial fluid collections. No evidence of mass o r mass effect. Paranasal sinuses and mastoid air cells are well aerated. Normal posterior nasopharynx . IMPRESSION: Fast imaging was performed 1. No evidence of restricted diffusion to suggest acute ischemia. 2. Minimal supratentorial white matter changes. Moderate parenchymal volume loss somaewhat prominent for a patient of this age. This appears increased since CT 11/30/2021 3. Increased T2 signal abnormality involving the traversing pontocerebellar fibers in the david and m iddle cerebral peduncles. This is nonspecific but can be seen with neurodegenerative diseases such as multisystem atrophy. Recommend further evaluation with gadolinium and conventional spin echo imaging . 4. Mild flattening of the ventral david best appreciated on the sagittal imaging. 5. Mild to moderate symmetric atrophy temporal lobes and hippocampal formations. 6. No hemosiderin on susceptibility-weighted images.
== END 2023-01-02 13:25 | disposition home or self-care (01) ==
LOC: ER 18:25 → MEDSURG 21:22
PROVIDERS: Family Medicine; Admitting Provider Internal Medicine; Emergency Provider Emergency Medicine; PCP Nurse Practitioner; Visit Provider Internal Medicine
DX: E11.65 Type 2 diabetes mellitus with hyperglycemia (principal); R41.0 Disorientation, unspecified; G23.8 Other specified degenerative diseases of basal ganglia; Z79.4 Long term (current) use of insulin; Z79.84 Long term (current) use of oral hypoglycemic drugs
CPT/HCPCS: 36415; 36416; 36600; 70450; 70551; 80051; 80053; 80306; 80307; 81001; 82009; 82330; 82550; 82805; 82962; 83605; 83690; 83735; 85025; 87040; 87205; 93005; 96361; 96372; 96374; 96375; 99285; G0378; J1644; J1815; J2405; J7030

== ENCOUNTER 2023-02-12 15:19 | Outpatient (CLI) | payer OTHER, SELFPAY ==
--- NOTE | 2023-02-12 15:15 | MR_ITS ---
WS: [id number] MRI BRAIN WITH AND WITHOUT CONTRAST HISTORY: progressive weakness, confusion, history of lung cancer. COMPARISON: 01/02/2023 TECHNIQUE: Multiplanar imaging performed through the brain with MultiHance 13 ml's IV. No evidence of restricted diffusion or acute ischemia. Reidentified is increased T2 signal involving the david and the middle cerebellar peduncles extending along the traversing pontocerebellar fibers. N o progression since the prior study. There is mild bilateral cerebral and cerebellar atrophy which is unchanged. More focal and pronounced atrophy involving the temporal and hippocampal formations. There are a few scattered T2 and FLAIR si gnal hyperintensities in the periventricular white matter from small vessel disease. Mildly prominent ventricles and extra-axial spaces on the basis of atrophy. Clivus and pituitary gland are normal. Postcontrast images are negative for masses or vascular malformations. Signal abnormality in the david and the cerebellum does not enhance. There are no masses. No vascular malformations. Dural venous sinuses are normal. Paranasal sinuses: Well aerated with no significant disease. Mastoid air cells: Normal. Calvarium and scalp: Normal. IMPRESSION: 1. No restricted diffusion. No acute infarct. 2. No change in appearance of the brain of the white matter disease since 01/02/2023. 3. Stable increased T2 signal involving the david and middle cerebellar peduncles.. There is no enhan cement on the postcontrast imaging. As noted on the prior exam this is nonspecific but typically seen with neurodegenerative diseases such as multisystem atrophy. 4. Symmetric temporal lobe and hippocampal formation atrophy. Atrophy is unchanged. 5. No mass or abnormal enhancement within the brain.
== END 2023-02-12 15:20 | disposition home or self-care (01) ==
LOC: RAD 15:20
PROVIDERS: PCP Nurse Practitioner; Visit Provider Internal Medicine
DX: M62.50 Muscle wasting and atrophy, not elsewhere classified, unspecified site (principal); R53.1 Weakness; R47.81 Slurred speech; R41.0 Disorientation, unspecified; W19.XXXA Unspecified fall, initial encounter; Z85.118 Personal history of other malignant neoplasm of bronchus and lung
CPT/HCPCS: 70553; A9577

== ENCOUNTER → 2023-05-15 14:06 | Outpatient (BNVA) | payer OTHER, SELFPAY | PROVIDERS: PCP Nurse Practitioner; Visit Provider Dermatology | DX: L82.1 Other seborrheic keratosis (principal); D22.5 Melanocytic nevi of trunk; L84 Corns and callosities; D69.2 Other nonthrombocytopenic purpura; L57.8 Other skin changes due to chronic exposure to nonionizing radiation | CPT/HCPCS: 99203 ==

== ENCOUNTER 2023-05-19 08:26 | Outpatient (CLI) | payer OTHER, SELFPAY ==
--- NOTE | 2023-05-19 08:36 | FL_ITS ---
WS: [id number] FL barium swallow modifd [id number] REASON FOR EXAM: Other dysphagia FLUOROSCOPY TIME: 3min [id number] # OF SPOT FILMS: None FINDINGS: Examination was supervised by the speech therapy department. With the patient in the upright sitting lateral position the swallowing of multiple consistencies of barium was evaluated with fluoroscopy and video recorded. A detailed report of the swallowing will be rendered by the speech therapy department. IMPRESSION: Modified barium swallow as above.
== END 2023-05-19 08:27 | disposition home or self-care (01) ==
LOC: RAD 08:26
PROVIDERS: PCP Nurse Practitioner; Visit Provider Nurse Practitioner
DX: R13.10 Dysphagia, unspecified (principal)
CPT/HCPCS: 74230; 92611

== ENCOUNTER 2023-05-21 09:43 | Outpatient (CLI) | payer OTHER, SELFPAY ==
--- NOTE | 2023-05-21 09:47 | US_ITS ---
WS: [id number] RIGHT UPPER QUADRANT ULTRASOUND HISTORY: ELEVATED LIVER ENZYMES COMPARISON: 09/01/2021 Liver: 14.9 cm in length. Normal size liver and echogenicity. No bile duct dilatation or mass. Portal Vein: Normal hepatopetal flow with monophasic waveform. Gallbladder: Normally distended gallbladder with no stones or wall thickening. CBD: 0.5 cm Pancreas: Obscured by bowel gas. Right kidney: 10.0 cm in length. Normal size and echogenicity. No hydronephrosis or mass. Aorta and IVC: Unremarkable abdominal aorta and IVC. No ascites. IMPRESSION: 1. Normal gallbladder. 2. Obscured pancreas by bowel gas. 3. Negative liver.
== END 2023-05-21 09:44 | disposition home or self-care (01) ==
LOC: RAD 09:44
PROVIDERS: PCP Nurse Practitioner; Visit Provider Nurse Practitioner
DX: R74.01 Elevation of levels of liver transaminase levels (principal)
CPT/HCPCS: 76705

== ENCOUNTER 2023-05-22 23:16 | Emergency (ER) | payer OTHER, SELFPAY ==
[2023-05-22 23:26] VITALS: BP 114/74; PULSE 89; RESP 16; TEMP 38.6; O2SAT 97
--- NOTE | 2023-05-22 23:33 | XRR_ITS ---
PROCEDURE INFORMATION: Exam: XR Chest Exam date and time: 05/22/2023 11:37 PM Age: 53 years old Clinical indication: Fever; Prior surgery; Surgery date: 6+ months; Surgery type: RT lower lobe removed-lung cancer TECHNIQUE: Imaging protocol: Radiologic exam of the chest. Views: 1 view. COMPARISON: CR XR chest 1V portable [id number] 10/11/2022 7:43 PM FINDINGS: Tubes, catheters and devices: Right hilar surgical clips. Lungs: Unremarkable. No consolidation. Pleural spaces: Unremarkable. No pleural effusion. No pneumothorax. Heart/Mediastinum: Unremarkable. No cardiomegaly. Bones/joints: Unremarkable. XR/XR chest 1V portable [id number] IMPRESSION: Lungs are clear.
--- NOTE | 2023-05-22 23:35 | ECG_ITS ---
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 Measurements Intervals [place] Rate: 84 P: 55 MO: 148 QRS: 12 QRSD: 94 T: 31 QT: 346 QTc: 411 Interpretive Statements SINUS RHYTHM LOW QRS VOLTAGE IN PRECORDIAL LEADS [QRS DEFLECTION < 1.0 mV IN CHEST LEADS] Compared to ECG 01/01/2023 14:34:35 Low QRS voltage now present Intraventricular conduction delay no longer present Prolonged QT interval no longer present Electronically Signed On 05-23-2023 13:42:31 PRINCIPAL HARDWARE ARCHITECT by Ximena Blanchard M.D. [id number]
[2023-05-22] MEDS: acetaminophen 500 mg Tablet 1000 MG PO (23:49)
[2023-05-22 23:55] LABS: Basophils % 0.9 %; Eosinophils % 0.3 %; Hematocrit 31.9 % (37-53); Lymphocytes # 0.8 10^3/uL (0.8-4.8); Lymphocytes % 23.1 %; Mean Corpuscular HGB Conc 34.2 g/dL (30-55); Mean Corpuscular Hemoglobin 29.2 pg (27-33); Mean Corpuscular Volume 85.5 fl (82-101); Mean Platelet Volume 9.4 fL (7.4-10.4); Monocytes # 0.5 10^3/uL (0.2-0.9); Monocytes % 13.3 %; Neutrophils # 2.09 10^3/uL (1.8-7.7); Neutrophils % 61.8 %; Nucleated Red Blood Cells % 0 %; Platelet Count 200 10^3/cmm (157-399); Red Blood Count 3.73 10^6/uL (3.85-5.65); Red Cell Distribution Width 15.1 % (12.1-15.1); White Blood Count 3.38 10^3/uL (3.29-11.43)
[2023-05-23 00:01] VITALS: PULSE 84; RESP 18; O2SAT 95
[2023-05-23 00:19] LABS: Influenza A by IFA Positive (Negative); Influenza B by IFA Negative (Negative); SARS Covid-2 Antigen negative (Negative)
--- NOTE | 2023-05-23 00:24 | ED_ITS ---
HPI - General Adult 2 General: Chief complaint: General Medical Stated complaint: fluid buildup gurgling sob Time Seen by Provider: 05/22/23 23:33 History of Present Illness: Patient presented to the ER today with congestion, fluid on his lungs, history of aspiration, and fever. Patient has been worked up all week with blood work chest x[facility]ray [facility] When the patient got home from the clinic he got more short of breath and developed a fever. So then he came here to be further evaluated. Patient has had his right upper lobe of his lung removed due to lung cancer. 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 Physical Exam 2 Const: COMMON NORMALS: no acute distress, average body habitus, patient oriented x3, no limitations, healthy appearing, alert and well nourished HENMT: COMMON NORMALS: normocephalic, atraumatic, hearing grossly normal bilaterally, external ears normal, Normal external nose present, moist oral mucous membranes and oropharynx normal HEAD & SCALP: normocephalic and atraumatic NOSE: Normal external nose present EXTERNAL EAR: Yes external ears normal Neck/C-Spine: COMMON NORMALS: full ROM, no lymphadenopathy, supple, no meningeal signs, no JVD and Thyroid normal THYROID: Thyroid normal Chest: COMMONS NORMALS: normal inspection of the chest and normal palpation of entire chest wall Resp: COMMON NORMALS: normal respiratory effort, No retractions, No use of accessory muscles and clear to auscultation bilaterally AUSCULTATION: clear to auscultation bilaterally Cardio: COMMON NORMALS: no JVD, regular rate, regular rhythm, S1 normal heart sound present, S2 normal heart sound present, No gallops present (Cardio), No clicks present (Cardio), No murmurs present (Cardio) and No rub (Cardio) R ATE: regular rate RHYTHM: regular rhythm HEART SOUNDS: S1 normal heart sound present and S2 normal heart sound present GI: COMMON NORMALS: Normal to inspection, nondistended, normoactive bowel sounds present, Soft to palpation, non-tender, No hepatosplenomegaly present and no masses PALPATION: Yes Soft to palpation and Yes No hepatosplenomegaly present Neuro: COMMON NORMALS: patient oriented x3 SENSORIUM/ORIENTATION: Yes alert MENINGEAL SIGNS: Yes no meningeal signs Course 2 Vital Signs: Vital signs: Vital Signs Temperature 99.3 F 05/23/23 01:10 Pulse Rate 74 05/23/23 01:10 Respiratory Rate 18 05/23/23 01:10 Blood Pressure 114/74 05/22/23 23:26 Pulse Oximetry 95 05/23/23 01:10 Oxygen Delivery Me thod Room Air 05/23/23 00:01 [facility] - General Adult Medical Decision Making Patient had lab work chest x-ray and nasal swabs. All of which was essentially stable but patient was positive for influenza A. Patient be discharged home to follow-up with with his PCP on an as-needed basis. Differential Diagnosis COPD, CHF, influenza, COVID Medical Records I reviewed the patient's medical records. Lab Data I reviewed the patient's lab results. 05/22/23 23:48 05/23/23 00:40 Radiology Impressions Chest X-Ray 05/22/23 23:33 IMPRESSION: Lungs are clear. Laboratory Results WBC 3.38 10^3/uL (3.29-11.43) 05/22/23 23:48 RBC 3.73 10^6/uL (3.85-5.65) L 05/22/23 23:48 Hgb 10.90 g/dL (11.27-16.99) L 05/22/23 23:48 Hct 31.9 % (37-53) L 05/22/23 23:48 MCV 85.5 fl (82-101) 05/22/23 23:48 MCH 29.2 pg (27-33) 05/22/23 23:48 MCHC 34.2 g/dL (30-55) 05/22/23 23:48 RDW 15.1 % (12.1-15.1) 05/22/23 23:48 Plt Count 200 10^3/cmm (157-399) 05/22/23 23:48 MPV 9.4 fL (7.4-10.4) 05/22/23 23:48 Neut % (Auto) 61.8 % 05/22/23 23:48 Lymph % (Auto) 23.1 % 05/22/23 23:48 [place] % (Auto) 13.3 % 05/22/23 23:48 Eos % (Auto) 0.3 % 05/22/23 23:48 Baso % (Auto) 0.9 % 05/22/23 23:48 Neut # (Auto) 2.09 10^3/uL (1.8-7.7) 05/22/23 23:48 Lymph # (Auto) 0.8 10^3/uL (0.8-4.8) 05/22/23 23:48 [place] # (Auto) 0.5 10^3/uL (0.2-0.9) 05/22/23 23:48 Eos # (Auto) 0.0 10^3/uL (0.0-0.8) 05/22/23 23:48 Baso # (Auto) 0.0 10^3/uL (0.0-0.1) 05/22/23 23:48 Nucleated RBC % (auto) 0 % 05/22/23 23:48 Nucleated RBCs # 0.0 /100WBC 05/22/23 23:48 Sodium 135 mmol/L (136-145) L 05/23/23 00:40 Potassium 3.6 mmol/L (3.5-5.1) 05/23/23 00:40 Chloride 101 mmol/L (98-107) 05/23/23 00:40 Carbon Dioxide 22 mmol/L (22-29) 05/23/23 00:40 Anion Gap 15.6 (5-19) 05/23/23 00:40 BUN 11 mg/dL (6-20) 05/23/23 00:40 Creatinine 0.9 mg/dL (0.7-1.2) 05/23/23 00:40 GFR Calculation 89.0 mL/min (90-130) L 05/23/23 00:40 Glucose 207 mg/dL (65-115) H 05/23/23 00:40 Calculated Osmolality 285 mOsm/kg (285-295) 05/23/23 00:40 Calcium 8.4 mg/dL (8.5-10.5) L 05/23/23 00:40 Total Bilirubin 0.2 mg/dL (0.15-1.2) 05/23/23 00:40 AST 25 U/L (0-40) 05/23/23 00:40 ALT 26 U/L (0-41) 05/23/23 00:40 Alkaline Phosphatase 119 U/L (40-130) 05/23/23 00:40 Troponin T Baseline 32 ng/L (0-15) H 05/23/23 00:40 NT-Pro-B Natriuret Pep 499 pg/mL (0-125) H 05/23/23 00:40 Total Protein 5.7 g/dL (6.6-8.7) L 05/23/23 00:40 Albumin 3.3 g/dL (3.5-5.2) L 05/23/23 00:40 Globulin 2.4 g/dL (1.3-4.6) 05/23/23 00:40 Influenza Type A Ag Positive (Negative) H 05/22/23 23:56 Influenza Type B Ag Negative (Negative) 05/22/23 23:56 SARS-CoV-2 Ag (Rapid) negative (Negative) 05/22/23 23:56 All radiology interpretation(s) finalized by discharge Discharge Plan Discharge Patient Disposition: Home Clinical Impression: Influenza A Condition: Stable Prescriptions: No Action rosuvastatin 5 mg Tablet 5 mg PO DAILY metformin 500 mg tablet extended release 24 hr 1,000 mg PO BID insulin glargine [Lantus U-100 Insulin] 100 unit/mL solution See Rx Instructions .ROUTE .COMPLEX Rx Instructions: 10 unit subcutaneously qam and 20 units qpm quetiapine 100 mg Tablet 100 mg PO BEDTIME 30 Days Qty: 30 1RF gabapentin 100 mg Capsule 100 mg PO TID 30 Days Qty: 90 1RF iron 325 mg (65 mg iron) Tablet 325 mg PO DAILY sertraline 100 mg tablet 100 mg PO DAILY Discharge Orders: Discharge ED (Routine); Ordered 05/23/23 Ordered By: Cleve Beasley Referrals: Laurie Frazier FNP [Primary Care Provider] - 1 week Patient Instructions: Influenza (ED) Activity Restrictions/Additional Instructions: Please take [id number] Tylenol or Motrin as needed for body aches and fever. Please follow-up with your family practice physician within the next 7 days for further evaluation and treatment as needed. Coding Level of Care Code ED Medical Psychotherapist for [place] Parra
[2023-05-23 01:10] VITALS: PULSE 74; RESP 18; TEMP 37.4; O2SAT 95
[2023-05-23 01:13] LABS: Troponin(5th) Baseline 32 ng/L (0-15)
[2023-05-23 01:18] LABS: Alanine Aminotransferase 26 U/L (0-41); Albumin Level 3.3 g/dL (3.5-5.2); Alkaline Phosphatase 119 U/L (40-130); Anion Gap 15.6 (5-19); Aspartate Amino Transferase 25 U/L (0-40); Blood Urea Nitrogen 11 mg/dL (6-20); Calcium 8.4 mg/dL (8.5-10.5); Carbon Dioxide 22 mmol/L (22-29); Chloride 101 mmol/L (98-107); Globulin 2.4 g/dL (1.3-4.6); Glucose 207 mg/dL (65-115); NT Pro B Type Natriuretic Pept 499 pg/mL (0-125); Osmolality Calculated 285 mOsm/kg (285-295); Potassium 3.6 mmol/L (3.5-5.1); Sodium 135 mmol/L (136-145); Total Bilirubin 0.2 mg/dL (0.15-1.2); Total Protein 5.7 g/dL (6.6-8.7)
--- NOTE | 2023-05-23 01:35 | ECG_ITS ---
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 Measurements Intervals [place] Rate: 73 P: 51 MN: 157 QRS: 19 QRSD: 109 T: 42 QT: 379 QTc: 419 Interpretive Statements SINUS RHYTHM LOW QRS VOLTAGE IN PRECORDIAL LEADS [QRS DEFLECTION < 1.0 mV IN CHEST LEADS] Compared to ECG 05/23/2023 00:03:53 No significant changes Electronically Signed On 05-23-2023 13:49:03 [employer] by Ximena Blanchard M.D. [id number]
[2023-05-23 01:50] VITALS: PULSE 88; RESP 18; O2SAT 97
== END 2023-05-23 01:53 | disposition home or self-care (01) ==
PROVIDERS: Emergency Provider Emergency Medicine; PCP Nurse Practitioner
DX: J10.1 Influenza due to other identified influenza virus with other respiratory manifestations (principal); Z79.84 Long term (current) use of oral hypoglycemic drugs; Z79.4 Long term (current) use of insulin; Z11.52 Encounter for screening for COVID-19; Z85.118 Personal history of other malignant neoplasm of bronchus and lung; E11.9 Type 2 diabetes mellitus without complications; Z87.891 Personal history of nicotine dependence
CPT/HCPCS: 71045; 80053; 83880; 84484; 85025; 87040; 87426; 87804; 93005; 99285

== ENCOUNTER 2023-05-30 10:18 | Emergency (ER) | payer OTHER, SELFPAY ==
--- NOTE | 2023-05-30 10:20 | XR_ITS ---
WS: [id number] Exam: XR chest 1V portable [id number] Date/Time of Exam: 05/30/2023 10:20 AM Reason For Exam: sob; flu Comparison 05/22/2023. Findings: The lungs are clear and fully expanded. Costophrenic angles are sharp. No infiltrates. Bronchovascula r relief appears normal. Cardiac silhouette is unremarkable. Bony elements are intact. IMPRESSION: Unremarkable chest radiograph.
[2023-05-30 10:30] VITALS: BP 112/70; PULSE 66; RESP 15; TEMP 36.5; O2SAT 99
--- NOTE | 2023-05-30 12:11 | ED_ITS ---
HPI - General Adult General: Chief complaint: General Medical Stated complaint: sent by NM, SOB Time Seen by Provider: 05/30/23 12:11 History of Present Illness: 53-year-old male presents emergency depa rtment via personal vehicle from the [facility] stating that he was told that he needed to receive IV fluids. He states he was told that he was positive for influenza and that his blood work indicated that he was dehydrated. Patient states she does have increased fatigue and weakness and has not been taking very much by mouth intake in over the previous week because he is felt nauseated. Associated symptoms: Reports malaise Review of Systems General: Reports: 10 or more systems reviewed and unremarkable except in HPI and below Const: Reports: body aches, fatigue and malaise PFSH ED PFSH: Medical History Depression Leukopenia Asthma Lung cancer Insulin dependent diabetes mellitus Surgical History History of pneumonectomy Family History Other Diabetes Social History Smoking and tobacco/nicotine status: never used tobacco/nicotine Quit status (tobacco/nicotine): has quit using Year quit tobacco: 2007 Former quit date comment: 1.5 X 11 years Alcohol intake: never Substance/Drug Use: never Lives independently: Yes Household members: spouse Marital status: 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 Vital signs reviewed as documented. HENMT: Normocephalic, atraumatic. External ears normal appearance without drainage. Nose without drainage, normal appearance. Mucus membranes moist. Neck is supple, No jugular venous distension, trachea is midline, no appreciable carotid bruits. No lymphadenopathy. No meningeal signs. Flexion, extension and lateral rotation is without pain. Eyes: Pupils are equal, round, reactive to light and accommodation. No scleral icterus. Extra-ocular movement are intact. Thorax is symmetrical and with equal rise and fall with respirations. Resp: Lungs are clear to auscultation. No wheezes, rales, crackles or ronchi at present. Cardio: Regular rate and rhythm. Positive S1, S2. No appreciable murmurs, rubs or gallops. GI: Abdominal exam reveals normal bowel sounds to all quadrants. No organomegaly. No obvious palpable masses noted. No hepatomegally appreciated. Soft, non-tender to palpation. Extremity: Extremities are non-edematous and both femoral and pedal pulses are 2+ and equal bilaterally. Moves all extremities well, sensation in all extremities. Neuro: Alert and oriented x4, person, place, time and situation. Cranial nerves II through XII are grossly intact, there is no focal neurological deficits that I can appreciate at present. Motor strength in the upper and lower extremities are equal and bilateral 5/5. Psych: Cooperative, calm, normal thought process, appropriate judgment. Skin: No lesions, rashes. No gross abnormalities noted. Back: Symmetrical, no obvious deformity, No CVA tenderness Course Vital Signs: Vital signs: Vital Signs Temperature 97.7 F 05/30/23 10:30 Pulse Rate 66 05/30/23 10:30 Respiratory Rate 15 05/30/23 10:30 Blood Pressure 112/70 05/30/23 10:30 Pulse Oximetry 99 05/30/23 10:30 Oxygen Delivery Me thod Room Air 05/30/23 10:30 Discharge Plan Discharge Condition: Stable Prescriptions: No Action rosuvastatin 5 mg Tablet 5 mg PO DAILY metformin 500 mg tablet extended release 24 hr 1,000 mg PO BID insulin glargine [Lantus U-100 Insulin] 100 unit/mL solution See Rx Instructions .ROUTE .COMPLEX Rx Instructions: 10 unit subcutaneously qam and 20 units qpm quetiapine 100 mg Tablet 100 mg PO BEDTIME 30 Days Qty: 30 1RF gabapentin 100 mg Capsule 100 mg PO TID 30 Days Qty: 90 1RF iron 325 mg (65 mg iron) Tablet 325 mg PO DAILY sertraline 100 mg tablet 100 mg PO DAILY Referrals: Laurie Frazier FNP [Primary Care Provider] - Coding Level of Care Code 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
[2023-05-30 12:35] LABS: Hematocrit 35.4 % (37-53); Mean Corpuscular HGB Conc 32.2 g/dL (30-55); Mean Corpuscular Hemoglobin 28.1 pg (27-33); Mean Corpuscular Volume 87.4 fl (82-101); Mean Platelet Volume 9.4 fL (7.4-10.4); Platelet Count 267 10^3/cmm (157-399); Red Blood Count 4.05 10^6/uL (3.85-5.65); Red Cell Distribution Width 15.3 % (12.1-15.1); White Blood Count 4.25 10^3/uL (3.29-11.43)
[2023-05-30 12:58] LABS: Alanine Aminotransferase 21 U/L (0-41); Albumin Level 3.7 g/dL (3.5-5.2); Alkaline Phosphatase 138 U/L (40-130); Anion Gap 13.3 (5-19); Aspartate Amino Transferase 19 U/L (0-40); Blood Urea Nitrogen 11 mg/dL (6-20); Calcium 8.7 mg/dL (8.5-10.5); Carbon Dioxide 25 mmol/L (22-29); Chloride 106 mmol/L (98-107); Globulin 3.2 g/dL (1.3-4.6); Glucose 91 mg/dL (65-115); Osmolality Calculated 289 mOsm/kg (285-295); Potassium 4.3 mmol/L (3.5-5.1); Sodium 140 mmol/L (136-145); Total Bilirubin 0.2 mg/dL (0.15-1.2); Total Protein 6.9 g/dL (6.6-8.7)
[2023-05-30 13:20] LABS: Slide Review Slide Review Perform
[2023-05-30 13:21] LABS: Absolute Eosinophils 0.1 10^3/cmm (0.0-0.7); Absolute Neutrophil 2.1 10^3/cmm (1.4-6.5); Absolute Segmented Neutrophil 1.9 10/cmm (1.6-7.1); Band Neutrophils Absolute 0.2 10^3/cmm (0.0-1.2); Eosinophils 3 %; Hypochromasia 1+; Lymphocytes 28 %; Lymphocytes Absolute 1.2 10^3/cmm (1.2-3.4); Monocytes Absolute 0.6 10^3/cmm (0.1-0.6); Platelet Estimate Normal (Normal); Segmented Neutrophils 45 %; Total Cells Counted 100 (0-100)
== END 2023-05-30 12:46 | disposition left against medical advice (07) ==
PROVIDERS: Emergency Provider Internal Medicine; PCP Nurse Practitioner
DX: Z53.21 Procedure and treatment not carried out due to patient leaving prior to being seen by health care provider (principal)
CPT/HCPCS: 36415; 71045; 80053; 85007; 85025; 99284

== ENCOUNTER 2023-06-25 14:05 | Outpatient (CLI) | payer OTHER, SELFPAY ==
--- NOTE | 2023-06-25 14:12 | CT_ITS ---
WS: [id number] CT chest w con* [id number] HISTORY: HX OF LUNG CA TECHNIQUE: Axial imaging performed through the thorax. Coronal and sagittal reformats are submitted. All CT scans at [facility] use at least one of these dose optimization techniques: automated exposure control; mA and/or kV adjustment per patient size (includes targeted exams where dose is mat ched to clinical indication); or iterative reconstruction. CONTRAST: Omnipaque 350; 100 mL IV. DLP: 230.83 mGy.cm COMPARISON: 08/20/2022 Lungs and central airway: Prior RIGHT upper lobectomy. There is very slight volume loss in the LEFT t horax. 4 mm nodule in the periphery RIGHT lower lobe, image 25 of series 4 was also present on the st udy of 08/20/2022 without increase in size. Overall there is much better aeration bilaterally througho ut both lungs. No new mass or nodule. No pneumonia. Pleura: Normal. No pleural effusion. Heart and pericardium: Normal size heart with no pericardial effusion. Mediastinum and ritu: No mediastinal or hilar adenopathy. Vessels: Normal size aortic and pulmonary artery. No coronary artery calcifications. Chest wall and lower neck: No soft tissue masses. Upper abdomen: Marked pancreatic atrophy. Calcification along the pancreatic head and body. There is also mildly dilated pancreatic duct which has been present on prior studies dating back to 09/21/2018. No pancreatic mass is identified. Osseous structures: No destructive process. IMPRESSION: 1. Status post RIGHT upper lobectomy. 2. Stable 4 mm nodule in the RIGHT lower lobe. No change since 08/20/2022. This nodule can be reevalu ated on follow-up imaging exams. 3. No mediastinal or hilar adenopathy and stable postsurgical site at the RIGHT hilum. 4.
[2023-06-25] MEDS: iohexol 350 mg/mL 500 mL Btl (per mL) IV (15:12)
== END 2023-06-25 14:06 | disposition home or self-care (01) ==
LOC: RAD 14:07
PROVIDERS: PCP Nurse Practitioner; Visit Provider Nurse Practitioner
DX: Z85.118 Personal history of other malignant neoplasm of bronchus and lung (principal); Z90.2 Acquired absence of lung [part of]
CPT/HCPCS: 71260; Q9967

== ENCOUNTER 2023-07-08 13:56 | Oncology outpatient (recurring) (ONCR) | payer OTHER, SELFPAY ==
[2023-07-08 15:07] LABS: Basophils # 0.1 10^3/uL (0.0-0.1); Basophils % 1.6 %; Eosinophils # 0.1 10^3/uL (0.0-0.8); Eosinophils % 1.6 %; Hematocrit 33.2 % (37-53); Lymphocytes # 1.9 10^3/uL (0.8-4.8); Lymphocytes % 32.4 %; Mean Corpuscular HGB Conc 34.6 g/dL (30-55); Mean Corpuscular Hemoglobin 28.8 pg (27-33); Mean Platelet Volume 9.3 fL (7.4-10.4); Monocytes # 0.5 10^3/uL (0.2-0.9); Monocytes % 8.3 %; Neutrophils % 53.3 %; Nucleated Red Blood Cells % 0 %; Platelet Count 360 10^3/cmm (157-399); Red Cell Distribution Width 12.3 % (12.1-15.1); Reticulocyte % 1.8 % (0.5-2.0)
[2023-07-08 15:09] LABS: Erythrocyte Sedimentation Rate 10 mm/hr (0-10)
[2023-07-08 15:24] LABS: Alanine Aminotransferase 18 U/L (0-41); Albumin Level 3.8 g/dL (3.5-5.2); Alkaline Phosphatase 115 U/L (40-130); Anion Gap 14.1 (5-19); Aspartate Amino Transferase 15 U/L (0-40); Blood Urea Nitrogen 15 mg/dL (6-20); Calcium 8.8 mg/dL (8.5-10.5); Carbon Dioxide 22 mmol/L (22-29); Chloride 101 mmol/L (98-107); Creatinine Clr Calc Pharmacy 82.1287; Ferritin 292 ng/mL (30-400); Globulin 2.7 g/dL (1.3-4.6); Glomerular Filtration Rate 78.8 mL/min (90-130); Glucose 142 mg/dL (65-115); Iron 74 ug/dL (59-158); Lactate Dehydrogenase 173 U/L (135-225); Osmolality Calculated 279 mOsm/kg (285-295); Percent Saturation 21.8 % (20-50); Potassium 4.1 mmol/L (3.5-5.1); Sodium 133 mmol/L (136-145); Total Bilirubin 0.2 mg/dL (0.15-1.2); Total Iron Binding Capacity 338 mcg/dl; Total Protein 6.5 g/dL (6.6-8.7); Unsaturated Iron Binding 264 ug/dL (112-347)
[2023-07-08 15:39] LABS: Vitamin B12 1042 pg/mL (232-1245)
[2023-07-08 16:15] LABS: LAB Peripheral Smear Sent for Review
[2023-07-08 17:40] LABS: Folate Level 8.9 ng/mL (4.5-32.2)
== END 2023-07-10 23:59 | disposition home or self-care (01) ==
LOC: ONCMED 13:57
PROVIDERS: Internal Medicine Medical Oncology; PCP Nurse Practitioner; Visit Provider Nurse Practitioner
DX: D64.9 Anemia, unspecified (principal); G23.8 Other specified degenerative diseases of basal ganglia; R91.1 Solitary pulmonary nodule; Z87.891 Personal history of nicotine dependence; Z90.2 Acquired absence of lung [part of]; Z87.898 Personal history of other specified conditions
CPT/HCPCS: 36415; 80053; 82607; 82728; 82746; 83010; 83540; 83550; 83615; 85025; 85045; 85651; 86140; 99205

== ENCOUNTER 2024-02-24 09:49 | Outpatient (CLI) | payer OTHER, SELFPAY ==
--- NOTE | 2024-02-24 09:59 | XR_ITS ---
WS: [id number] LUMBAR SPINE: 3 VIEWS TECHNIQUE: AP, lateral and L5-S1 spot. HISTORY: BACK PAIN COMPARISON: None available. Straightening of the normal lumbar lordosis. Moderate disc space narrowing at L5-S1 with small endpla te osteophytes from the vertebral bodies. No fractures. Pedicles are well identified. No destructive bone lesions. Normal facet alignment. Facet joint arthropathy most significant at L5-S1. SI joints are symmetric bilaterally. No soft tissue abnormalities. XR/XR lumbar spine 2-3V* [id number] IMPRESSION: 1. Moderate degenerative disc disease at L5-S1. 2. No fractures.
== END 2024-02-24 09:50 | disposition home or self-care (01) ==
LOC: RAD 09:52
PROVIDERS: PCP Nurse Practitioner; Visit Provider Internal Medicine
DX: Z02.71 Encounter for disability determination (principal); M51.360 Other intervertebral disc degeneration, lumbar region with discogenic back pain only; M51.370 Other intervertebral disc degeneration, lumbosacral region with discogenic back pain only
CPT/HCPCS: 72100

== ENCOUNTER → 2024-06-15 10:02 | Outpatient (BNVA) | payer OTHER, SELFPAY | PROVIDERS: PCP Nurse Practitioner; Visit Provider Surgery | DX: Z12.11 Encounter for screening for malignant neoplasm of colon (principal); R03.0 Elevated blood-pressure reading, without diagnosis of hypertension | CPT/HCPCS: 99204 ==

== ENCOUNTER 2024-06-17 10:32 | Outpatient (CLI) | payer OTHER, SELFPAY | END 2024-06-17 10:33 | disposition home or self-care (01) | PROVIDERS: PCP Nurse Practitioner; Visit Provider Surgery | DX: R19.7 Diarrhea, unspecified (principal) | CPT/HCPCS: 82274; 83630; 83993; 87177; 87209 ==

== ENCOUNTER 2024-06-24 08:08 | Day surgery (SDC) | payer OTHER, SELFPAY ==
[2024-06-24 08:23] VITALS: BP 113/78; PULSE 61; RESP 18; TEMP 36.6; O2SAT 98; BMI 24.0
--- NOTE | 2024-06-24 08:41 | P.HPUD_ITS ---
Surgery/Procedure H&P Update DATE OF PROCEDURE: June 24, 2024 DATE H&P PERFORMED: 06/15/24 H&P UPDATE INFORMATION: I have reviewed H&P completed within last 30 days, I have examined patient prior to procedure, No changes to prior documentation and H&P is in [facility] EMR on date indicated PLANNED PROCEDURE: Operation Date: 06/24/24 09:15 Proposed Procedures p Colonoscopy 32971, G0121, Z12.11(Not Applicable) - Lamberto Sepulveda MD
--- NOTE | 2024-06-24 08:41 | W.PM.OPSUD ---
Surgery/Procedure H&P Update DATE OF PROCEDURE: June 24, 2024 DATE H&P PERFORMED: 06/15/24 H&P UPDATE INFORMATION: I have reviewed H&P completed within last 30 days, I have examined patient prior to procedure, No changes to prior documentation and H&P is in [facility] EMR on date indicated PLANNED PROCEDURE: Operation Date: 06/24/24 09:15 Proposed Procedures p Colonoscopy 90080, G0121, Z12.11(Not Applicable) - Lamberto Sepulveda MD
[2024-06-24] MEDS: sodium chloride 0.9% 500 ML 15 ML IV (08:44)
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
[2024-06-24 10:09] VITALS: BP 77/57; PULSE 72; RESP 18; TEMP 36.2; O2SAT 96
[2024-06-24 10:21] VITALS: BP 111/66; PULSE 59; RESP 18; TEMP 36.2; O2SAT 94
[2024-06-24 10:44] LABS: Glucose Point of Care 97 mg/dL (70-110)
--- NOTE | 2024-06-24 10:45 | ANE.PACU2 ---
Inpatient post-anesthesia follow up: Airway intact: Yes Vital signs: Temperature 97.1 F Pulse Rate 59 Respiratory Rate 18 Blood Pressure 111/66 Pulse Oximetry 94 Oxygen Delivery Me thod Room Air Oxygen Flow Rate 2 Fraction of Inspir ed Oxygen Hydration adequate: Yes Nausea and vomiting: No Pain level: 1 Mental status: Baseline
== END 2024-06-24 10:45 | disposition home or self-care (01) ==
PROVIDERS: PCP Nurse Practitioner; Visit Provider Surgery
PROC: 0DJD8ZZ Inspection of Lower Intestinal Tract, Via Natural or Artificial Opening Endoscopic (ICD-10-PCS; CPT 45378; principal; 2024-06-24 09:15)
DX: Z12.11 Encounter for screening for malignant neoplasm of colon (principal); D12.9 Benign neoplasm of anus and anal canal; D12.3 Benign neoplasm of transverse colon; R19.7 Diarrhea, unspecified; E11.9 Type 2 diabetes mellitus without complications; Z86.73 Personal history of transient ischemic attack (TIA), and cerebral infarction without residual deficits; Z79.899 Other long term (current) drug therapy; Z79.84 Long term (current) use of oral hypoglycemic drugs; Z79.4 Long term (current) use of insulin; Z87.891 Personal history of nicotine dependence
CPT/HCPCS: 36416; 45380; 82962; 88305; J2704; J7040

== ENCOUNTER → 2024-07-06 10:32 | Outpatient (BNVA) | payer OTHER, SELFPAY | PROVIDERS: PCP Nurse Practitioner; Visit Provider Surgery | DX: Z09 Encounter for follow-up examination after completed treatment for conditions other than malignant neoplasm (principal) | CPT/HCPCS: 99213 ==